=== PATIENT | male | born 1950 | race Caucasian/White ===

== ENCOUNTER → 2016-05-26 | Outpatient (CLI) | payer OTHER ==
--- NOTE | 2016-05-26 11:56 | USB ---
Reason for exam: clinical finding. Indicated problem(s): lump or thickening in the left breast. Physical Findings: Nurse Summary: palpable under upper aspect of nipple 1 x 0.5cm left breast (nurse kuldip). US Breast Limited BILAT Right breast ultrasound demonstrates no cystic or solid lesion seen. Left breast ultrasound demonstrates a 1.6 x 2.2 x 1.1cm irregular, hypoechoic lesion at the posterior nipple, gynecomastia. These results were verbally communicated with the patient and result sheet given to the patient on 05/26/16. ASSESSMENT: Probably benign, BI-RAD 3 RECOMMENDATION: Surgical consultation of the left breast. Called Dr. Cabrera with mammographic findings and has scheduled an appointment for the patient for 05/29/16 at 1:[address] Massey. PRELIMINARY REPORT CALLED AND FAXED TO DR. MASSEY ON 05/26/16 AT 300/TP.
== END | disposition home or self-care (01) ==
LOC: RADUSWWP 09:49
PROVIDERS: ATTEND Family Medicine
DX: N63 Unspecified lump in breast (principal)

== ENCOUNTER 2016-06-22 12:45 | Emergency (ER) | payer MEDICARE ==
[2016-06-22 14:02] VITALS: BP 120/84; PULSE 53; RESP 16; TEMP 98.2
[2016-06-22] MEDS ORDERED: PROPARACAINE 0.5% OPHTH DROPS 15 ML BTL BOTH EYES STA (14:10)
[2016-06-22] MEDS ORDERED: TOBRAMYCIN 0.3% OPHTH DROPS 5 ML BTL BOTH EYES STA (14:38)
--- NOTE | 2016-06-22 14:47 | ED ---
Eye Problem HPI - General Chief complaint: Eye Problems Stated complaint: FB in Eye Time Seen by Provider: 06/22/16 14:03 Source: patient Mode of arrival: ambulatory Limitations: no limitations - History of Present Illness Initial comments: Patient is a 66-year-old white male presenting to the emergency department with complaints of bilateral eye pain. Patient states he was doing some sanding and working with iron in his barn approximately 2 days ago and thinks he might have gotten something in his eyes. Patient states he was wearing eye protection. Patient complains mild irritation to his right eye associated with mild itching. Patient states that his left eye is more painful and is bothering him more. Patient states he does have a piece of scrap metal in his left eye from when he was in the [employer] a long time ago. Patient follows with an orchid worker at the [facility]. Patient does normally wear glasses. Patient states he had a tetanus shot less than 5 years ago. Patient denies contact lens use. No history of recent illness, upper respiratory infection, chills, fevers, nausea, shortness of breath, chest pain, abdominal pain. Patient states flushed his eyes with water with minimal relief. - Related Data Patient Tetanus UTD: Yes Home Medications Medication Instructions Recorded Confirmed Simvastatin [Zocor] 10 mg PO DAILY 09/14/13 06/22/16 Previous Rx's Medication Instructions Recorded Tobramycin 0.3% Ophth Soln [Tobrex 1 - 2 drop BOTH EYES Q4H #1 bottle 06/22/16 0.3% Ophth Soln] Allergies Allergy/AdvReac Type Severity Reaction Status Date / Time adhesive AdvReac Rash/Hives Verified 06/22/16 14:02 Review of Systems ROS Statement: Those systems with pertinent positive or pertinent negative responses have been documented in the HPI. ROS Other: All systems not noted in ROS Statement are negative. Past Medical History Past Medical History: Hyperlipidemia Additional Past Medical History / Comment(s): TURP History of Any Multi-Drug Resistant Organisms: None Reported Additional Past Surgical History / Comment(s): testicle, right rotary cuff, right knee Past Psychological History: No Psychological Hx Reported Smoking Status: Never smoker Past Alcohol Use History: None Reported Past Drug Use History: None Reported General Exam Limitations: no limitations General appearance: alert, in no apparent distress Head exam: Present: atraumatic, normocephalic, normal inspection Expanded Eyelids: Normal Inspection: Bilateral, Laceration: Bilateral, Stye: Bilateral Pupils: Regular, Round: Bilateral, Reactive: Bilateral Sclera/Conjunctival: Injection: Bilateral, Foreign Body: Left (Small piece of metal noted in the middle of patient's pupil ) Visual acuity (R) = 20/: 40 Visual acuity (L) = 20/: 70 With correction: No ENT exam: Present: normal exam, mucous membranes moist Neck exam: Present: normal inspection, full ROM Respiratory exam: Present: normal lung sounds bilaterally. Absent: respiratory distress, wheezes, rales, rhonchi, stridor Cardiovascular Exam: Present: regular rate, bradycardia, normal heart sounds. Absent: systolic murmur, diastolic murmur, rubs, gallop, clicks GI/Abdominal exam: Present: soft, normal bowel sounds Extremities exam: Present: normal inspection, full ROM Neurological exam: Present: alert, oriented X3, normal gait, other (No focal deficits noted) Psychiatric exam: Present: normal affect, normal mood Skin exam: Present: warm, dry, intact, normal color. Absent: rash Course Vital Signs 06/22/16 13:58 Temperature 98.2 F Pulse Rate 53 L Respiratory 16 Rate Blood Pressure 120/84 O2 Sat by Pulse 98 Oximetry Medical Decision Making - Medical Decision Making Patient presents with bilateral eye discomfort after having worked with wood and iron 2 days ago. Bilateral eyes numbed and stained. Corneal abrasion noted to right eye. Foreign body noted to left pupil without evidence of abrasion. Foreign body removed with cotton tip. Bilateral eyelids flipped with no evidence of foreign body. Patient prescribed tobramycin eyedrops. Patient instructed to follow-up with ophthalmology within 24 hours. Patient instructed to return to the emergency department with dual worsening symptoms. Patient agrees with treatment plan. Discharge instructions and return parameters reviewed. Disposition Clinical Impression: Corneal abrasion, right, Foreign body of cornea, left Disposition: HOME SELF-CARE Condition: Good Instructions: Eye Foreign Body (ED), Corneal Abrasion (ED) Additional Instructions: Apply tobramycin eyedrops 1-2 drops every 4 hours to both eyes for 5-7 days. May take Motrin or Tylenol for pain. Follow-up with orchid worker in next 24 hours. Please return to the emergency department if symptoms do not improve or get worse. Follow-up with primary care physician as directed. Prescriptions: Tobramycin 0.3% Ophth Soln [Tobrex 0.3% Ophth Soln] 1 - 2 drop BOTH EYES Q4H #1 bottle Referrals: Martin Cabrera DO [Primary Care Provider] - 1-2 days Derek Josue MD [STAFF PHYSICIAN] - 1-2 days Time of Disposition: 14:46
== END 2016-06-22 15:06 | disposition home or self-care (01) ==
LOC: EC 12:45
DX: T15.02XA Foreign body in cornea, left eye, initial encounter (principal); E78.5 Hyperlipidemia, unspecified; Z79.899 Other long term (current) drug therapy; Z91.048 Other nonmedicinal substance allergy status; X58.XXXA Exposure to other specified factors, initial encounter
CPT/HCPCS: 65220; 99283

== ENCOUNTER 2018-11-05 12:42 | Emergency (ER) | payer MEDICARE ==
[2018-11-05 12:45] VITALS: RESP 18; TEMP 97.5
--- NOTE | 2018-11-05 13:00 | ED ---
General Adult HPI - General Chief complaint: Fall Stated complaint: fall 8' from ladder 5 days ago Time Seen by Provider: 11/05/18 12:50 Source: patient, RN notes reviewed, old records reviewed Mode of arrival: ambulatory Limitations: no limitations - History of Present Illness Initial comments: 68-year-old male patient no pertinent past medical history presents ED chief complaint of pain following fall 5 days ago. Patient reports that 5 days ago he was on a ladder approximately 5 steps up when shifted, he fell onto his left shoulder and back region. Patient reports that he has a pain in his left shoulder and low back since. Patient denies any trauma to head or neck. Patient denies any loss of consciousness. Patient denies any use of blood thi nners. Patient denies any loss of bowel or bladder control, saddle anesthesia, lower extremity weakness, paresthesias, patient is a laboratory but difficulty. Patient was seen at [facility] today reportedly and had some blood in his urine, they request that he present to ER for further evaluation. Systemic: Pt denies fatigue, fever/chills, rash. Pt denies weakness, night sweats, weight loss. Neuro: Pt denies headache, visual disturbances, syncope or pre-syncope. HEENT: Pt denies ocular discharge or irritation, otalgia, rhinorrhea, pharyngitis or notable lymphadenopathy. Cardiopulmonary: Pt denies chest pain, SOB, heart palpitations, dyspnea on exertion. Abdominal/GI: Pt denies abdominal pain, n/v/d. : Pt denies dysuria, burning w/ urination, frequency/urgency. Denies new onset urinary or bowel incontinence. MSK: Pt denies loss of strength or function in extremities. Neuro: Pt denies new onset weakness, paresthesias. - Related Data Home Medications Medication Instructions Recorded Confirmed Simvastatin [Zocor] 10 mg PO DAILY 09/14/13 06/22/16 Previous Rx's Medication Instructions Recorded Tobramycin 0.3% Ophth Soln [Tobrex 1 - 2 drop BOTH EYES Q4H #1 bottle 06/22/16 0.3% Ophth Soln] Allergies Allergy/AdvReac Type Severity Reaction Status Date / Time adhesive AdvReac Rash/Hives Verified 11/05/18 12:43 Review of Systems ROS Statement: Those systems with pertinent positive or pertinent negative responses have been documented in the HPI. ROS Other: All systems not noted in ROS Statement are negative. Past Medical History Past Medical History: Hyperlipidemia Additional Past Medical History / Comment(s): TURP History of Any Multi-Drug Resistant Organisms: None Reported Additional Past Surgical History / Comment(s): testicle, right rotary cuff,right knee, right arm nerve surgery Past Psychological History: No Psychological Hx Reported Smoking Status: Never smoker Past Alcohol Use History: None Reported Past Drug Use History: None Reported General Exam - General Exam Comments Initial Comments: Constitutional: NAD, AOX3, Pt has pleasant affect. HEENT: NC/AT, trachea midline, neck supple, no lymphadenopathy. Posterior pharynx non erythematous, without exudates. External ears appear normal, without discharge. Mucous membranes moist. Eyes PERRLA, EOM intact. There is no scleral icterus. No pallor noted. Cardiopulmonary: RRR, no murmurs, rubs or gallops, no JVD noted. Lungs CTAB in anterior and posterior mcdowell. No peripheral edema. Abdominal exam: Abdomen soft and non-distended. Abdomen non-tender to palpation in all 4 quadrants. Bowel sounds active in LLQ. No hepatosplenomegaly. No ecchymosis Neuro: CN II-XII grossly intact. No nuchal rigidity. No raccon eyes, no martel sign, no hemotympanum. No cervical spinal tenderness. MSK: Mild right paralumbar tenderness. No radiculopathy. No other tenderness to palpation. No posterior calf tenderness bilaterally, homans sign negative bilaterally. Posterior tibialis and radial pulse +2 bilaterally. Sensation intact in upper and lower extremities. Full active ROM in upper and lower extremities, 5/5 stregnth. Limitations: no limitations Course Vital Signs 11/05/18 12:43 Temperature 97.5 F L Pulse Rate 61 Respiratory 18 Rate Blood Pressure 131/84 O2 Sat by Pulse 96 Oximetry Medical Decision Making - Medical Decision Making 68-year-old male patient no pertinent past medical history presents ED chief complaint of pain following fall 5 days ago. Patient reports that 5 days ago he was on a ladder approximately 5 steps up when shifted, he fell onto his left shoulder and back region. Patient reports that he has a pain in his left shoulder and low back since. Patient denies any trauma to head or neck. Patient denies any loss of consciousness. Patient denies any use of blood thinners. Patient denies any loss of bowel or bladder control, saddle anesthesia, lower extremity weakness, paresthesias, patient is a laboratory but difficulty. Patient was seen at [facility] today reportedly and had some blood in his urine, they request that he present to ER for further evaluation. Patient vital signs stable, afebrile. Physical exam did displayed some right paralumbar pain, no radiculopathy. With without difficulty. Plain films displayed no acute process. CT abdomen pelvis displayed no acute traumatic process. Patient discharged with outpatient primary care follow-up, otalgia condition worsens. Case discussed with Dr. Linder. - Lab Data Result diagrams: 11/05/18 14:51 11/05/18 14:51 Lab Results 11/05/18 11/05/18 11/05/18 Range/Units 14:51 14:51 14:51 WBC 6.5 (3.8-10.6) k/uL RBC 4.59 (4.30-5.90) m/uL Hgb 13.7 (13.0-17.5) gm/dL Hct 41.1 (39.0-53.0) % MCV 89.6 (80.0-100.0) fL MCH 29.9 (25.0-35.0) pg MCHC 33.3 (31.0-37.0) g/dL RDW 13.1 (11.5-15.5) % Plt Count 202 (150-450) k/uL Neutrophils % 51 % Lymphocytes % 35 % Monocytes % 5 % Eosinophils % 4 % Basophils % 2 % Neutrophils # 3.4 (1.3-7.7) k/uL Lymphocytes # 2.3 (1.0-4.8) k/uL Monocytes # 0.4 (0-1.0) k/uL Eosinophils # 0.2 (0-0.7) k/uL Basophils # 0.2 (0-0.2) k/uL Sodium 139 (137-145) mmol/L Potassium 4.8 (3.5-5.1) mmol/L Chloride 101 (98-107) mmol/L Carbon Dioxide 32 H (22-30) mmol/L Anion Gap 6 mmol/L BUN 20 (9-20) mg/dL Creatinine 0.78 (0.66-1.25) mg/dL Est GFR (CKD-EPI)AfAm >90 (>60 ml/min/1.73 sqM) Est GFR (CKD-EPI)NonAf >90 (>60 ml/min/1.73 sqM) Glucose 97 (74-99) mg/dL Calcium 9.5 (8.4-10.2) mg/dL Total Bilirubin 0.5 (0.2-1.3) mg/dL AST 25 (17-59) U/L ALT 23 (21-72) U/L Alkaline Phosphatase 64 (38-126) U/L Total Protein 7.0 (6.3-8.2) g/dL Albumin 4.1 (3.5-5.0) g/dL Urine Color Yellow Urine Appearance Clear (Clear) Urine pH 7.5 (5.0-8.0) Ur Specific [place] 1.012 (1.001-1.035) Urine Protein Negative (Negative) Urine Glucose (UA) Negative (Negative) Urine Ketones Negative (Negative) Urine Blood Negative (Negative) Urine Nitrite Negative (Negative) Urine Bilirubin Negative (Negative) Urine Urobilinogen <2.0 (<2.0) mg/dL Ur Leukocyte Esterase Negative (Negative) Disposition Clinical Impression: Fall Disposition: HOME SELF-CARE Condition: Stable Instructions (If sedation given, give patient instructions): Fall Prevention for Older Adults (ED) Additional Instructions: Patient to adhere to previously discussed treatment plan and will take medication(s) as directed. Patient to follow up with PCP in 1-2 days. Patient to return to ED if symptoms do not improve. Follow up with primary care provider Tomorrow, return to ER condition worsens. Is patient prescribed a controlled substance at d/c from ED?: No Referrals: Martin Cabrera DO [Primary Care Provider] - 1-2 days
--- NOTE | 2018-11-05 13:38 | XR ---
EXAMINATION TYPE: XR chest 2V DATE OF EXAM: Chest x-ray September 14, 2013 COMPARISON: NONE HISTORY: Fall injury 5 days ago with pain. TECHNIQUE: Frontal and lateral views of the chest are obtained. FINDINGS: There is chronic parenchymal changes bilaterally without suspicious focal air space opacit y, pleural effusion, or pneumothorax seen. The cardiac silhouette size is within normal limits with atherosclerotic and ectatic aorta. The osseous structures are demineralized. IMPRESSION: Chronic changes without acute pulmonary process.
--- NOTE | 2018-11-05 13:38 | XR ---
EXAMINATION TYPE: XR shoulder complete LT DATE OF EXAM: 11/05/2018 CLINICAL HISTORY: Fall injury 5 days ago with pain. TECHNIQUE: Three views of the left shoulder are obtained. COMPARISON: None. FINDINGS: There is no acute fracture/dislocation evident in the left shoulder. Demineralization is present. Moderate narrowing right ventricular joint. High riding humeral head suggesting chronic rota tor cuff tear. Moderate narrowing superior glenohumeral joint. The visualized ribs are intact and un remarkable. IMPRESSION: There is no acute fracture or dislocation in the left shoulder.
--- NOTE | 2018-11-05 13:39 | XR ---
EXAMINATION TYPE: XR pelvis AP view DATE OF EXAM: 11/05/2018 CLINICAL HISTORY: Falling injury 5 days ago with pain. TECHNIQUE: A single AP view of the pelvis is obtained. COMPARISON: None. FINDINGS: There is no acute fracture/dislocation evident in the pelvis. Mild to moderate axial narro wing of both hip joints. Sacroiliac joints are maintained. The overlying soft tissue appears unremar kable. IMPRESSION: There is no acute fracture or dislocation in the pelvis.
--- NOTE | 2018-11-05 13:41 | XR ---
EXAMINATION TYPE: XR lumbar spine 2 or 3V DATE OF EXAM: 11/05/2018 CLINICAL HISTORY: Fall injury 5 days ago with pain. TECHNIQUE: Frontal and lateral images of the lumbar spine are obtained. COMPARISON: Lumbar spine x-ray September 15, 2013 FINDINGS: There are 5 lumbar type vertebral bodies identified. There is mild height loss T12 level r edemonstrated. New mild height loss at L1 level with anterior wedging. No suspicious lucency. Slight grade 1 anterolisthesis L3 on L4. Mild to moderate disc space narrowing L4-L5 level. Mild multilevel disc space narrowing. Mild multilevel anterior spurring. Multilevel facet degenerative changes mid to lower lumbar spine. Overlying soft tissue unremarkable. IMPRESSION: No new acute fracture is clearly identified.
[2018-11-05] MEDS ORDERED: SODIUM CHLORIDE 0.9% 1,000 ML IV STA (14:37)
[2018-11-05 15:12] LABS: Appearance,Urine Clear (Clear); Bilirubin,Urine Negative (Negative); Blood,Urine Negative (Negative); Color,Urine Yellow; Glucose,Urine (UA) Negative (Negative); Ketones,Urine Negative (Negative); Leukocyte Esterase,Urine Negative (Negative); Nitrite,Urine Negative (Negative); PH, Urine 7.5 (5.0-8.0); Protein,Urine Negative (Negative); Specific Gravity,Urine 1.012 (1.001-1.035); Urobilinogen,Urine <2.0 mg/dL (<2.0)
[2018-11-05 15:13] LABS: Basophils # (A) 0.2 k/uL (0-0.2); Basophils % (A) 2 %; Eosinophils # (A) 0.2 k/uL (0-0.7); Eosinophils % (A) 4 %; HCT 41.1 % (39.0-53.0); HGB 13.7 gm/dL (13.0-17.5); Lymphocytes # (A) 2.3 k/uL (1.0-4.8); Lymphocytes % (A) 35 %; MCH 29.9 pg (25.0-35.0); MCHC 33.3 g/dL (31.0-37.0); MCV 89.6 fL (80.0-100.0); Mean Platelet Volume 7.6; Monocytes # (A) 0.4 k/uL (0-1.0); Monocytes % (A) 5 %; Neutrophils # (A) 3.4 k/uL (1.3-7.7); Neutrophils % (A) 51 %; Platelet Count 202 k/uL (150-450); RBC 4.59 m/uL (4.30-5.90); RDW 13.1 % (11.5-15.5); WBC 6.5 k/uL (3.8-10.6)
[2018-11-05 15:26] LABS: ALT 23 U/L (21-72); AST 25 U/L (17-59); African American GFR (CKD) >90 (>60 ml/min/1.73 sqM); Albumin 4.1 g/dL (3.5-5.0); Alkaline Phosphatase 64 U/L (38-126); Anion Gap 6 mmol/L; Blood Urea Nitrogen 20 mg/dL (9-20); Calcium 9.5 mg/dL (8.4-10.2); Carbon Dioxide 32 mmol/L (22-30); Chloride 101 mmol/L (98-107); Glucose 97 mg/dL (74-99); Non-African American GFR(CKD) >90 (>60 ml/min/1.73 sqM); Potassium 4.8 mmol/L (3.5-5.1); Sodium 139 mmol/L (137-145); Total Bilirubin 0.5 mg/dL (0.2-1.3)
--- NOTE | 2018-11-05 15:53 | CT ---
EXAMINATION TYPE: CT ChestAbdPelvis w con DATE OF EXAM: 11/05/2018 COMPARISON: None HISTORY: 8 foot fall from ladder 5 days ago. Diffuse pain most prominent in the low back. CT DLP: 1321.5 mGycm. Automated Exposure Control for Dose Reduction was Utilized. CONTRAST: CT scan of the thorax, abdomen and pelvis is performed with IV Contrast, patient injected with 100 mL of Isovue 300. Trauma protocol. FINDINGS: LUNGS: Bibasilar linear scarring and/or atelectasis is present. Dependent atelectasis bilateral lower lobes. Mild to moderate biapical pleural/parenchymal scarring. No suspicious nodules or masses. No p leural effusion or pneumothorax. MEDIASTINUM: There are no greater than 1 cm noncalcified hilar or mediastinal lymph nodes. Slightly p rominent but partially calcified right hilar and subcarinal lymph nodes. Mild coronary artery calcifi cation which is noted marker for underlying coronary artery disease. No cardiomegaly or pericardial effusion is seen. OTHER: Small degree of left-sided subareolar gynecomastia. LIVER/GB: Rim hyperdense central hypodense 4.2 cm lesion posterior right hepatic lobe that shows prog ressive centripetal filling on delayed images consistent with benign hemangioma. PANCREAS: No significant abnormality is seen. SPLEEN: No significant abnormality is seen. ADRENALS: No significant abnormality is seen. KIDNEYS: No significant abnormality is seen. BOWEL: Incidental normal-appearing appendix from cecum. GENITAL ORGANS: Prostate gland is mildly enlarged bulging of bladder base consistent with underlying BPH. LYMPH NODES: No greater than 1cm abdominal or pelvic lymph nodes are appreciated. OSSEOUS STRUCTURES: Prominent Schmorl node superior T12 endplate sagittal image 75. Jpxg-[id number] disc space narrowing with vacuum disc phenomenon L4-L5 level. No acute osseous fracture. Efqo-ue-xcac rate narrowing of both hip joints. Facet arthropathy lower lumbar levels. OTHER: No significant additional abnormality is seen. IMPRESSION: No acute posttraumatic finding in particular no acute osseous fracture, abnormal fluid co llection, or evidence of solid organ injury in the thorax, abdomen, or pelvis.
[2018-11-05 16:40] VITALS: BP 142/85; PULSE 55
== END 2018-11-05 16:38 | disposition home or self-care (01) ==
LOC: EC 12:42
DX: Z04.3 Encounter for examination and observation following other accident (principal); M25.512 Pain in left shoulder; R31.9 Hematuria, unspecified; E78.5 Hyperlipidemia, unspecified; Z79.899 Other long term (current) drug therapy; Z91.048 Other nonmedicinal substance allergy status; W11.XXXA Fall on and from ladder, initial encounter
CPT/HCPCS: 36415; 80053; 85025; 81003; 72100; 72170; 73030; 71046; 71260; 74177; 99284; 96360; 96361; Q9967

== ENCOUNTER → 2020-06-07 | Outpatient (CLI) | payer OTHER, MEDICARE ==
--- NOTE | 2020-06-07 10:33 | USB ---
Reason for exam: clinical finding. Physical Findings: Nurse Summary: Patient complains of left breast intermittent lump with pain (nurse mj). US Breast Limited BILAT Right limited breast ultrasound including focal area of concern, retroareolar and axilla demonstrates no cystic or solid lesion seen. Left limited breast ultrasound including focal area of concern, retroareolar and axilla demonstrates a 1.8 x 1.2 x 1.1cm irregular, hypoechoic, vascular lesion at the posterior nipple, stable from 2017 and a 1.4 x 1.2 x 0.7cm oval lymph node at the axilla. These results were verbally communicated with the patient and result sheet given to the patient on 06/07/20. ASSESSMENT: Probably benign, BI-RAD 3 RECOMMENDATION: Ultrasound of the left breast in 6 months. Manage patient on a clinical basis.
--- NOTE | 2020-06-07 13:51 | US ---
EXAMINATION TYPE: US extremity nonvasc mass RT DATE OF EXAM: 06/07/2020 COMPARISON: NONE CLINICAL HISTORY: R93.6 Lesion R segovia. Patient stated has noticed increased in size of palpable right anterior seg[place]. Patient had previous injury here. US findings of right anterior lower leg at palpable: oval, irregular, complex, hypoechoic area is not ed = 1.8 x 1.8 x 0.3cm. Finding is nonspecific can be related to hematoma. Follow-up can be performed as clinically indicated. IMPRESSION: 1. Small ill-defined hypoechoic area at the level of the palpable region anterior right lower extremi ty. Consider small hematoma within the differential. Follow-up can be performed as clinically indicat ed.
== END | disposition home or self-care (01) ==
LOC: RADUSWWP 08:37
DX: N63.20 Unspecified lump in the left breast, unspecified quadrant (principal)

== ENCOUNTER → 2020-12-10 | Outpatient (CLI) | payer OTHER ==
--- NOTE | 2020-12-10 08:40 | USB ---
Bilateral breast ultrasound INDICATION: Bilateral breast palpable abnormalities. Comparisons: 06/07/2020, 05/26/2016 Grayscale and color Doppler imaging of the bilateral breasts in the retroareolar regions and axilla w ere obtained. FINDINGS: Hypoechoic ill-defined area in the right retroareolar breast appears relatively similar to the prior examination. Irregular hypoechoic area in the retroareolar left breast measures up to 0.7 cm and is l ess prominent than on the prior examination. IMPRESSION: Bilateral diagnostic mammogram is recommended in this male patient with bilateral palpable abnormalit ies. BI-RADS 0, incomplete.
--- NOTE | 2020-12-10 10:06 | MM ---
Reason for exam: follow-up at short interval from prior study. History: Family history of breast cancer in sister. MG 3D Diag Mammo W/Cad KRISTIE Bilateral CC and MLO view(s) were taken. Prior study comparison: June 07, 2020, bilateral US breast limited BILAT. May 26, 2016, bilateral US breast limited BILAT. Bilateral gynecomastia greater in the left breast and clinical follow up. These results were verbally communicated with the patient and result sheet given to the patient on 12/10/20. ASSESSMENT: Benign, BI-RAD 2 RECOMMENDATION: Clinical management of both breasts. Manage patient on a clinical basis.
== END | disposition home or self-care (01) ==
LOC: RADUSWWP 08:09
DX: N63.0 Unspecified lump in unspecified breast (principal)
CPT/HCPCS: 77062; 77066

== ENCOUNTER 2021-07-16 08:00 | Day surgery (SDC) | payer OTHER ==
[~2021-07-16 08:00] MED LIST: LACTATED RINGERS 1,000 ML IV SCH; LIDOCAINE 1% (10MG/ML) FOR IV START INTRADERMA PRN
[2021-07-16 08:31] VITALS: RESP 16; TEMP 97.5
[2021-07-16] MEDS ORDERED: PROPOFOL 10 MG/ML 20 ML VIAL IV ONE (09:27)
[2021-07-16] MEDS ORDERED: LIDOCAINE 2% INJ 20 MG/ML (2 ML VIAL) ONE (09:27)
--- NOTE | 2021-07-16 09:53 | P.PCN ---
Date of Procedure: 07/16/21 Procedure(s) Performed: BRIEF HISTORY: Patient is a 71-year-old pleasant white male scheduled for an elective colonoscopy as a part of evaluation of prior history of colon polyps. Patient states that his last colonoscopy was in the [facility] in [place] and was noted to have 13 polyps. PROCEDURE PERFORMED: Colonoscopy with biopsy. PREOPERATIVE DIAGNOSIS: History of colon polyps. IV sedation per Anesthesia. PROCEDURE: After informed consent was obtained, the patient, was brought into the endoscopy unit. IV sedation was administered by Anesthesia under continuous monitoring. Digital rectal examination was normal. Initially the Olympus CF-160 flexible video colonoscope was then inserted in the rectum, gradually advanced into the cecum without any difficulty. Careful examination was performed as the scope was gradually being withdrawn. Ileocecal valve and the appendiceal orifice were visualized and appeared normal. Prep was excellent. Mucosa of the cecum, ascending colon, appeared normal. The transverse colon there was a 3 mm polyp that was removed by cold biopsy. In the sigmoid colon there was a 4 mm polyp removed by cold biopsy. Rest of the transverse colon, descending colon, sigmoid colon, and rectum appeared normal. In the rectum there was a 5 mm polyp removed by cold biopsy. Retroflexion was performed in the rectum and no lesions were seen. The patient tolerated the procedure well. IMPRESSION: 3 mm transverse colon polyp status post cold biopsy 4 mm sigmoid: Polyp status post cold biopsy 5 mm rectal polyp status post cold biopsy RECOMMENDATIONS: Findings of this examination were discussed with the patient as well as her family. He was advised to follow with the biopsy results. If the biopsy results adenoma he can have a repeat colonoscopy in 5 years.
[2021-07-16 10:12] VITALS: BP 120/69; PULSE 46
== END 2021-07-16 10:33 | disposition home or self-care (01) ==
LOC: ORWHC2ENDO 08:00
PROVIDERS: ATTEND Internal Medicine Gastroenterology
DX: Z12.11 Encounter for screening for malignant neoplasm of colon (principal); D12.3 Benign neoplasm of transverse colon; D12.5 Benign neoplasm of sigmoid colon; K62.1 Rectal polyp; Z86.010 Personal history of colon polyps; I10 Essential (primary) hypertension; E78.5 Hyperlipidemia, unspecified; G47.33 Obstructive sleep apnea (adult) (pediatric); J45.909 Unspecified asthma, uncomplicated; K21.9 Gastro-esophageal reflux disease without esophagitis; Z79.899 Other long term (current) drug therapy
CPT/HCPCS: 88305; 45380; J2704; J2001

== ENCOUNTER → 2022-09-25 | Outpatient (CLI) | payer OTHER ==
--- NOTE | 2022-09-25 08:39 | CT ---
EXAMINATION TYPE: CT lumbar spine wo con CT DLP: 1147 mGycm, Automated exposure control for dose reduction was used. DATE OF EXAM: 09/25/2022 8:14 AM COMPARISON: 11/05/2018. CLINICAL INDICATION:Male, 72 years old with history of M54.5 back pain, chronic back pain TECHNIQUE: Multiple axial images were obtained from the midportion of T11 through the sacroiliac xochitl nts. Soft tissue and bone windows in coronal and sagittal planes were obtained and reviewed. Contrast used:none. Oral contrast used: none. FINDINGS: Alignment: There are 5 lumbar type vertebral bodies within normal alignment. Bone: No evidence of fracture is identified. Multilevel degeneration changes are moderate to severe. There is wedging of the T12-L1 vertebral bodies. Scattered facet joint arthropathy, disc space narro wing with vacuum disc phenomenon and Schmorl's nodes are present. Discs: T12-L1: Facet joint arthropathy and disc bulging result with mild to moderate spinal canal stenosis a nd mild bilateral neural foraminal stenosis. L1-L2: Facet joint arthropathy and disc bulging result with mild spinal canal stenosis and mild to mo derate bilateral neural foraminal stenosis. L2-L3: Facet joint arthropathy and disc bulging result with mild spinal canal stenosis and mild bilat eral neural foraminal stenosis. L3-L4: Facet joint arthropathy and disc bulging result with severe spinal canal stenosis and mild mod erate to severe bilateral neural foraminal stenosis. L4-L5: Facet joint arthropathy and disc bulging result with mild spinal canal stenosis and moderate bilateral neural foraminal stenosis. L5-S1: Facet joint arthropathy and disc bulging result with mild spinal canal stenosis and mild bilat eral neural foraminal stenosis. Other: None IMPRESSION: Moderate to severe multilevel disc degeneration changes of the spine findings worse at L3-L4 with mod erate to severe neural foraminal stenosis bilaterally in severe spinal canal stenosis.
== END | disposition home or self-care (01) ==
LOC: RADCTMAIN 07:49
DX: M51.36 Other intervertebral disc degeneration, lumbar region (principal); M99.73 Connective tissue and disc stenosis of intervertebral foramina of lumbar region
CPT/HCPCS: 72131

== ENCOUNTER 2022-09-28 16:21 | Inpatient (IN) | payer OTHER, MEDICARE ==
[2022-09-28] MEDS ORDERED: SODIUM CHLORIDE 0.9% 1,000 ML IV ONE (16:53)
[2022-09-28] MEDS ORDERED: KETOROLAC 15 MG/ML 1 ML VIAL IVP STA (16:54)
--- NOTE | 2022-09-28 16:58 | ED ---
General Adult HPI - General Chief complaint: Fall Stated complaint: Fall Time Seen by Provider: 09/28/22 16:37 Source: patient, RN notes reviewed Mode of arrival: wheelchair Limitations: no limitations - History of Present Illness Initial comments: 72-year-old male with past medical history significant for hyperlipidemia presents the emergency department with a chief complaint of fall. Patient reports that he fell from a ladder at approximately 10 feet yesterday. He fell on his right hip. He denies hitting his head, loss of consciousness, anticoagulant use. He denies any headache, dizziness, vision changes, vision loss, neck pain, back pain. He does report feeling left sided flank pain that radiates into the left groin. He also reports that his urine this morning. I'll (normal and believes he saw a small amount of blood. Denies any fevers, chills, nausea, vomiting. Denies history of kidney stones. - Related Data Home Medications Medication Instructions Recorded Confirmed Carboxymethylcellulose Sodium 1 drop BOTH EYES BID PRN 07/12/21 09/28/22 [Refresh Tears] Fluticasone Nasal [place] [Flonase 1 spray EA NOSTRIL DAILY 07/12/21 09/28/22 Nasal [place]] Fluticasone Propion/Salmeterol 1 puff INHALATION RT-BID 07/12/21 09/28/22 [Wixela 100-50 Inhub] Furosemide [Lasix] 20 mg PO DAILY 07/12/21 09/28/22 Latanoprost/Pf [Latanoprost 0.005% 1 drop BOTH EYES HS 07/12/21 09/28/22 Eye Drop] Naproxen Sodium [Aleve] 220 mg PO BID PRN 07/12/21 09/28/22 Omeprazole 20 mg PO DAILY 07/12/21 09/28/22 Potassium Chloride 10 meq PO DAILY 07/12/21 09/28/22 Vit C/E/Zn/Coppr/Lutein/Zeaxan 1 tab PO BID 07/12/21 09/28/22 [Preservision Areds 2 Chew Tab] Brimonidine Tartrate [Alphagan P 1 drop BOTH EYES BID 09/28/22 09/28/22 0.2% Ophth Soln] Calcium Carbonate 1.25 Gm Tab 1.25 gm PO DAILY 09/28/22 09/28/22 Cholecalciferol [Vitamin D3 (10 10 mcg PO DAILY 09/28/22 09/28/22 Mcg = 400 Iu)] Ketotifen 0.025% Ophth Soln 1 drop BOTH EYES BID PRN 09/28/22 09/28/22 [Zaditor] Simvastatin [Zocor] 40 mg PO HS 09/28/22 09/28/22 polyethylene glycoL 3350 [Miralax] 17 gm PO DAILY PRN 09/28/22 09/28/22 Allergies Allergy/AdvReac Type Severity Reaction Status Date / Time adhesive AdvReac Rash/Hives Verified 09/28/22 21:00 Review of Systems ROS Statement: Those systems with pertinent positive or pertinent negative responses have been documented in the HPI. ROS Other: All systems not noted in ROS Statement are negative. Past Medical History Past Medical History: Asthma, GERD/Reflux, Hyperlipidemia, Hypertension, Osteoarthritis (OA) Additional Past Medical History / Comment(s): constipation,very small stool w/ undigested foods History of Any Multi-Drug Resistant Organisms: None Reported Past Surgical History: Orthopedic Surgery Additional Past Surgical History / Comment(s): testicle, right rot cuff,right knee, right arm nerve surgery,TURP,karen shoulder replacement Past Anesthesia/Blood Transfusion Reactions: No Reported Reaction Past Psychological History: No Psychological Hx Reported Smoking Status: Never smoker - Past Family History Mother Family Medical History: Cancer Additional Family Medical History / Comment(s): stomach Father Family Medical History: COPD General Exam - General Exam Comments Initial Comments: General: Alert, in no acute distress Head: atraumatic normocephalic. Eyes PERRL, EOMI intact, mucous membranes moist Respiratory: Lungs clear to auscultation bilaterally Cardiovascular: Heart rate regular rhythm Abdominal: Soft without guarding or rebound Extremities: Normal inspection with full range of motion and normal capillary refill Neuroogic: alert and oriented 3, CN II-XII intact, able to ambulate with steady gait Skin: warm dry and intact with normal color Limitations: no limitations Course Vital Signs 09/28/22 09/28/22 16:24 21:16 Temperature 98.4 F Pulse Rate 65 52 L Respiratory 16 18 Rate Blood Pressure 135/76 129/73 O2 Sat by Pulse 97 94 L Oximetry Medical Decision Making - Medical Decision Making Was pt. sent in by a medical professional or institution (Dr., PA, MONITORING COORDINATOR, urgent care, hospital, or usp...) When possible be specific @ -[No] Did you speak to anyone other than the patient for history (EMS, parent, family, police, friend...)? What history was obtained from this source @ -[No] Did you review nursing and triage notes (agree or disagree)? Why? @ -[I reviewed and agree with nursing and triage notes] Were old charts reviewed (outside hosp., previous admission, EMS record, old EK G, old radiological studies, urgent care reports/EKG's, usp records)? Report findings @ -[No old charts were reviewed] Differential Diagnosis (chest pain, altered mental status, abdominal pain women, abdominal pain men, vaginal bleeding, weakness, fever, dyspnea, syncope, headache, dizziness, GI bleed, back pain, seizure, CVA, palpatations, mental he alth, musculoskeletal)? @ -[not applicable] EKG interpreted by me (3pts min.). @ -[As above] X-rays interpreted by me (1pt min.). @ -[None done] CT interpreted by me (1pt min.).i @ -CT abdomen and pelvis is negative for any evidence of intra-abdominal process or nephrolithiasis. There is no fracture or dislocation the spine or hips U/S interpreted by me (1pt. min.). @ -[None done] What testing was considered but not performed or refused? (CT, X-rays, U/S, labs)? Why? @ -[None] What meds were considered but not given or refused? Why? @ -[None] Did you discuss the management of the patient with other professionals (professionals i.e. AZUCENA Haji, MONITORING COORDINATOR, lab, RT, psych nurse, social services designee, dyed raw stock blower feeder, teacher, second officer, flow manager)? Give summary @ -[No] Was smoking cessation discussed for >3mins.? @ -[No] Was critical care preformed (if so, how long)? @ -[No] Were there social determinants of health that impacted care today? How? (Homelessness, low income, unemployed, alcoholism, drug addiction, transportat ion, low edu. Level, literacy, decrease access to med. care, fpc, rehab)? @ -[No] Was there de-escalation of care discussed even if they declined (Discuss DNR or withdrawal of care, Hospice)? DNR status @ -[No] What co-morbidities impacted this encounter? (DM, HTN, Smoking, COPD, CAD, Cancer, CVA, ARF, Chemo, Hep., AIDS, mental health diagnosis, sleep apnea, morbid obesity)? @ -[None] Was patient admitted / discharged? Hospital course, mention meds given and route, prescriptions, significant lab abnormalities, going to OR and other pertinent info. @ -Admission. This is a pleasant 72-year-old male witha past medical history who presents to the emergency department the chief complaint of fall. Patient had a thorough history and physical exam performed on the emergency department. Physical exam is essentially unremarkable. Heart rate regular rate and rhythm, lungs good auscultation bilaterally abdomen soft nontender. He shouldn't unable to ambulate with steady gait secondary to pain. He was given IV fluids and Toradol with symptomatic relief. He is agreeable with the plan for admission. Patient had lab work and imaging which were essentially unremarkable. Case discussed with [facility] who agrees and accepts the patient for admission with consult to PT OT. Case discussed with Dr. Ruelas, [facility] who agrees plan of care Undiagnosed new problem with uncertain prognosis? @ -[No] Drug Therapy requiring intensive monitoring for toxicity (Heparin, Nitro, Insulin, Cardizem)? @ -[No] Were any procedures done? @ -[No] Diagnosis/symptom? @ -Fall - Left flank pain Acute, or Chronic, or Acute on Chronic? @ -Acute Uncomplicated (without systemic symptoms) or Complicated (systemic symptoms)? @ Uncomplicated] Side effects of treatment? @ -[No] Exacerbation, Progression, or Severe Exacerbation? @ -[No] Poses a threat to life or bodily function? How? (Chest pain, [place], [place], pneumonia, PE, COPD, DKA, ARF, appy, cholecystitis, CVA, Diverticulitis, Homicidal, Suicidal, threat to staff... and all critical care pts) @ -Low likelihood - Lab Data Result diagrams: 09/28/22 17:18 09/28/22 17:18 Lab Results 09/28/22 09/28/22 09/28/22 Range/Units 17:18 17:18 18:06 WBC 6.7 (3.8-10.6) k/uL RBC 4.33 (4.30-5.90) m/uL Hgb 13.7 (13.0-17.5) gm/dL Hct 39.8 (39.0-53.0) % MCV 91.8 (80.0-100.0) fL MCH 31.7 (25.0-35.0) pg MCHC 34.5 (31.0-37.0) g/dL RDW 12.9 (11.5-15.5) % Plt Count 120 L (150-450) k/uL MPV 9.1 Neutrophils % 68 % Lymphocytes % 18 % Monocytes % 6 % Eosinophils % 6 % Basophils % 1 % Neutrophils # 4.6 (1.3-7.7) k/uL Lymphocytes # 1.2 (1.0-4.8) k/uL Monocytes # 0.4 (0-1.0) k/uL Eosinophils # 0.4 (0-0.7) k/uL Basophils # 0.0 (0-0.2) k/uL Sodium 136 L (137-145) mmol/L Potassium 4.2 (3.5-5.1) mmol/L Chloride 102 (98-107) mmol/L Carbon Dioxide 28 (22-30) mmol/L Anion Gap 6 mmol/L BUN 21 H (9-20) mg/dL Creatinine 0.55 L (0.66-1.25) mg/dL Est GFR (CKD-EPI)AfAm >90 (>60 ml/min/1.73 sqM) Est GFR (CKD-EPI)NonAf >90 (>60 ml/min/1.73 sqM) Glucose 108 H (74-99) mg/dL Calcium 8.7 (8.4-10.2) mg/dL Total Bilirubin 1.1 (0.2-1.3) mg/dL AST 30 (17-59) U/L ALT 23 (4-49) U/L Alkaline Phosphatase 59 (38-126) U/L Total Protein 6.5 (6.3-8.2) g/dL Albumin 3.7 (3.5-5.0) g/dL Urine Color Light Yellow Urine Appearance Clear (Clear) Urine pH 6.0 (5.0-8.0) Ur Specific [place] 1.006 (1.001-1.035) Urine Protein Negative (Negative) Urine Glucose (UA) Negative (Negative) Urine Ketones Negative (Negative) Urine Blood Negative (Negative) Urine Nitrite Negative (Negative) Urine Bilirubin Negative (Negative) Urine Urobilinogen <2.0 (<2.0) mg/dL Ur Leukocyte Esterase Negative (Negative) Disposition Clinical Impression: Fall, Flank pain Disposition: ADMITTED IP TO THIS [facility] Time of Disposition: 19:05
[2022-09-28 17:44] LABS: Basophils % (A) 1 %; Eosinophils # (A) 0.4 k/uL (0-0.7); Eosinophils % (A) 6 %; HCT 39.8 % (39.0-53.0); HGB 13.7 gm/dL (13.0-17.5); Lymphocytes # (A) 1.2 k/uL (1.0-4.8); Lymphocytes % (A) 18 %; MCH 31.7 pg (25.0-35.0); MCHC 34.5 g/dL (31.0-37.0); MCV 91.8 fL (80.0-100.0); Mean Platelet Volume 9.1; Monocytes # (A) 0.4 k/uL (0-1.0); Monocytes % (A) 6 %; Neutrophils # (A) 4.6 k/uL (1.3-7.7); Neutrophils % (A) 68 %; Platelet Count 120 k/uL (150-450); RBC 4.33 m/uL (4.30-5.90); RDW 12.9 % (11.5-15.5); WBC 6.7 k/uL (3.8-10.6)
[2022-09-28 17:49] LABS: ALT 23 U/L (4-49); African American GFR (CKD) >90 (>60 ml/min/1.73 sqM); Albumin 3.7 g/dL (3.5-5.0); Anion Gap 6 mmol/L; Blood Urea Nitrogen 21 mg/dL (9-20); Calcium 8.7 mg/dL (8.4-10.2); Carbon Dioxide 28 mmol/L (22-30); Chloride 102 mmol/L (98-107); Glucose 108 mg/dL (74-99); Non-African American GFR(CKD) >90 (>60 ml/min/1.73 sqM); Sodium 136 mmol/L (137-145); Total Bilirubin 1.1 mg/dL (0.2-1.3); Total Protein 6.5 g/dL (6.3-8.2)
--- NOTE | 2022-09-28 17:51 | CT ---
EXAMINATION TYPE: CT abdomen pelvis wo con DATE OF EXAM: 09/28/2022 COMPARISON: 11/05/2018 INDICATION: pain/r/out kidney stone DLP: 980.9 mGycm, Automated exposure control for dose reduction was used. CONTRAST: 0 mL of Isovue 300. Study performed without Oral Contrast TECHNIQUE: Axial images were obtained from above the diaphragm to the pubic rami in the axial plane a t 5 mm thick sections. Reconstructed images are reviewed on the computer in the coronal plane. FINDINGS: Limited CT sections are obtained the lung bases. Mild subsegmental atelectasis is likely within the posterior lung bases.. CT ABDOMEN: Liver: Patient suspected hemangioma is very poorly visualized on this examination and posterior right lobe liver best estimate of size is 3.8 cm. Spleen: Normal Pancreas: Normal Adrenal glands: The adrenal glands are normal. Gallbladder: Not identified. Correlate with the history Kidneys: No masses are evident. No hydronephrosis is present. No cysts are present. No renal stone s are evident. Ureteral stones are evident. Extrarenal pelves are present bilaterally. Aorta: Normal Inferior vena cava: Normal. CT PELVIS: Loops of bowel within the abdomen and pelvis are normal. This study is without oral contrast limi ting evaluation. Appendix: Normal as visualized. No adjacent inflammatory changes. Urinary bladder: Normal. Genitourinary structures: Prostate is prominent Osseous structures: No suspicious lytic or sclerotic lesions. Septi degenerative changes are present. Degenerative disc changes are within the thoracolumbar spine IMPRESSIONS: 1. No suspicious renal or ureteral stones. 2. Normal appendix. 3. Degenerative disc changes through the thoracolumbar spine
[2022-09-28 18:09] LABS: AST 30 U/L (17-59); Alkaline Phosphatase 59 U/L (38-126); Potassium 4.2 mmol/L (3.5-5.1)
[2022-09-28 18:10] LABS: Appearance,Urine Clear (Clear); Bilirubin,Urine Negative (Negative); Blood,Urine Negative (Negative); Color,Urine Light Yellow; Glucose,Urine (UA) Negative (Negative); Ketones,Urine Negative (Negative); Leukocyte Esterase,Urine Negative (Negative); Nitrite,Urine Negative (Negative); Protein,Urine Negative (Negative); Specific Gravity,Urine 1.006 (1.001-1.035); Urobilinogen,Urine <2.0 mg/dL (<2.0)
[2022-09-28] MEDS ORDERED: NALOXONE 0.4 MG/ML 1 ML VIAL IV PRN (19:36)
[2022-09-28] MEDS ORDERED: MORPHINE SULFATE 4 MG/ML SYRINGE IV PRN (19:36)
[2022-09-29] MEDS: ATORVASTATIN 20 MG TAB PO SCH ×2 (00:14→21:04)
[2022-09-29] MEDS: LATANOPROST 0.005% OPHTH DROPS 2.5 ML BTL BOTH EYES SCH ×2 (00:14→21:04)
[2022-09-29] MEDS: SODIUM CHLORIDE 0.9% 1,000 ML IV SCH ×2 (00:15→21:05)
[2022-09-29] MEDS: BRIMONIDINE TARTRATE 0.2% DROPS 5 ML BTL BOTH EYES SCH ×3 (00:46→21:04)
[2022-09-29] MEDS ORDERED: bisacodyL 5 MG TABLET.DR PO PRN (09:31)
[2022-09-29] MEDS ORDERED: ONDANSETRON 4 MG/2 ML VIAL IVP PRN (09:31)
[2022-09-29] MEDS ORDERED: polyethylene glycoL 3350 17 GM POWD.PACK PO PRN (09:32)
--- NOTE | 2022-09-29 09:35 | P.HPIM ---
History of Present Illness H&P Date: 09/29/22 Patient is a 73-year-old gentleman with a history of hypertension, dyslipidemia, GERD, and asthma who presented to the hospital due to pain after fall off a ladder. On arrival to the ER he underwent extensive evaluation. On arrival his vital signs within normal limits. Laboratory analysis reviewed and remarkable for platelets 120, sodium 136, BUN 21, creatinine 0.55, glucose 108. CT abdomen and pelvis shows no suspicious renal or ureteral stones, normal appendix, and degenerative disc changes throughout the thoracic lumbar spine. He was unabel to ambulate and therefore was admitted for pain control. Patient seen and examined at bedside. He reports that he fell off the ladder after trying to nail something to a metal roof. He did not lose consciousness. He reports that he landed on his buttock. He forced himself to get up. Since that time he has been having significant pain when standing. When he is recumbent underlying his pain is manageable. However when he stands he gets severe pain into bilateral groins on the front. It as well as some low back pain. Today he is starting to have some numbness going down the right anterior thigh. He reports that he cannot stand on his left leg due to the severity of the groin pain. He was recently undergoing workup by his neurologist for worsening low back and groin pain. He had a CT of his lumbar spine completed on 09/24/22 and they recommended an MRI, however he cannot have this done due to history of shrapnel in his eyes. He denies any other recent illnesses. He denies any cardiac problems. Vital signs reviewed General: nontoxic, no distress, appears at stated age Derm: warm, dry Eyes: EOMI, no lid lag, anicteric sclera, pupils equal round reactive to light ENT: Nose and ears atraumatic, no thrush, no pharyngeal erythema Cardiovascular: S1S2 reg, no murmur, positive posterior tibial pulse bilateral, no edema, capillary refill less than 2 seconds Lungs: clear to auscultation bilateral, no rhonchi, no rales, no wheeze, no accessory muscle use Abdominal: soft, nontender to palpation, no guarding, no appreciable organomegaly, normal bowel sounds Ext: no gross muscle atrophy, muscle strength 5 out of 5 in bilateral upper extremities, 5 out of 5 in right lower extremity, unable to do formal muscle strength testing in left lower extremity secondary to pain. Neuro: CN II-XII grossly intact, light touch intact all 4 extremities Back: No spinous process tenderness, no bruising Psych: Alert, oriented, appropriate affect Assessment/Plan: 72-year-old male status post fall from a ladder approximately 10 feet with intractable groin pain with standing - Place in observation -Suspect significant lumbar disc disease given recent lumbar spine CT which showed severe spinal canal stenosis with moderate to severe bilateral neural foraminal stenosis at L3-4 -Start Decadron 4 mg every 6 hours IV -Consult orthopedic spine -Check left hip x-ray -Continue with morphine 4 mg IV every 4 hours for severe pain, add [place] 5/325 every 6 hours when necessary for moderate pain -PT/OT evaluation Hypertension Dyslipidemia -Zocor 40 mg daily, Lasix 20 mg daily Chronic constipation -Resume home MiraLAX 17 mg daily as needed Chronic: Asthma without exacerbation GERD Imaging: As per HPI Data Review: As per HPI The patient is placed in observation due to intractable pain after fall with an anticipated less than 2 minutes stay Surrogate decision-maker: CODE STATUS:Full DVT prophylaxis: SCDs Discussed with: Patient, nursing Anticipated discharge date: Pending Clinical Course Anticipated discharge place: Pending Clinical Course This dictation was prepared using [employer] voice recognition software. Though every attempt is made to correct errors during dictation some may still exist. Past Medical History Past Medical History: Asthma, GERD/Reflux, Hyperlipidemia, Hypertension, Osteoarthritis (OA) Additional Past Medical History / Comment(s): constipation,very small stool w/ undigested foods History of Any Multi-Drug Resistant Organisms: None Reported Past Surgical History: Orthopedic Surgery Additional Past Surgical History / Comment(s): testicle, right rot cuff,right knee, right arm nerve surgery,TURP,karen shoulder replacement Past Anesthesia/Blood Transfusion Reactions: No Reported Reaction Past Psychological History: No Psychological Hx Reported Smoking Status: Never smoker - Past Family History Mother Family Medical History: Cancer Additional Family Medical History / Comment(s): stomach Father Family Medical History: COPD Medications and Allergies Home Medications Medication Instructions Recorded Confirmed Type Carboxymethylcellulose Sodium 1 drop BOTH EYES BID PRN 07/12/21 09/28/22 History [Refresh Tears] Fluticasone Nasal [place] [Flonase 1 spray EA NOSTRIL DAILY 07/12/21 09/28/22 History Nasal [place]] Fluticasone Propion/Salmeterol 1 puff INHALATION RT-BID 07/12/21 09/28/22 History [Wixela 100-50 Inhub] Furosemide [Lasix] 20 mg PO DAILY 07/12/21 09/28/22 History Latanoprost/Pf [Latanoprost 0.005% 1 drop BOTH EYES HS 07/12/21 09/28/22 History Eye Drop] Naproxen Sodium [Aleve] 220 mg PO BID PRN 07/12/21 09/28/22 History RX: Omeprazole 20 mg PO DAILY 07/12/21 09/28/22 History RX: Potassium Chloride 10 meq PO DAILY 07/12/21 09/28/22 History Vit C/E/Zn/Coppr/Lutein/Zeaxan 1 tab PO BID 07/12/21 09/28/22 History [Preservision Areds 2 Chew Tab] Brimonidine Tartrate [Alphagan P 1 drop BOTH EYES BID 09/28/22 09/28/22 History 0.2% Ophth Soln] Calcium Carbonate 1.25 Gm Tab 1.25 gm PO DAILY 09/28/22 09/28/22 History Cholecalciferol [Vitamin D3 (10 10 mcg PO DAILY 09/28/22 09/28/22 History Mcg = 400 Iu)] Ketotifen 0.025% Ophth Soln 1 drop BOTH EYES BID PRN 09/28/22 09/28/22 History [Zaditor] Simvastatin [Zocor] 40 mg PO HS 09/28/22 09/28/22 History polyethylene glycoL 3350 [Miralax] 17 gm PO DAILY PRN 09/28/22 09/28/22 History Allergies Allergy/AdvReac Type Severity Reaction Status Date / Time adhesive AdvReac Rash/Hives Verified 09/28/22 21:00 Physical Exam Osteopathic Statement: *. No significant issues noted on an osteopathic structural exam other than those noted in the History and Physical/Consult. Vitals: Vital Signs Temp Pulse Pulse Resp BP BP Pulse Ox 09/29/22 08:00 54 L 17 09/29/22 07:00 98.4 F 54 L 17 130/75 95 09/29/22 02:00 98.5 F 63 16 122/68 09/28/22 23:30 60 18 08/06/23 21:52 98.1 F 60 18 134/66 95 09/28/22 21:16 52 L 18 129/73 94 L 09/28/22 16:24 98.4 F 65 16 135/76 97 Intake and Output 09/28/22 09/29/22 09/29/22 22:59 06:59 14:59 Intake Total 118 Output Total 500 200 Balance -500 -82 Intake: Oral 118 Output: Urine 500 200 Other: Voiding Method Urinal Urinal Weight 117.934 kg Results CBC & Chem 7: 09/28/22 17:18 09/28/22 17:18 Labs: Abnormal Lab Results - Last 24 Hours (Table) 09/28/22 09/28/22 Range/Units 17:18 17:18 Plt Count 120 L (150-450) k/uL Sodium 136 L (137-145) mmol/L BUN 21 H (9-20) mg/dL Creatinine 0.55 L (0.66-1.25) mg/dL Glucose 108 H (74-99) mg/dL Thrombosis Risk Factor Assmnt - Choose All That Apply Any of the Below Risk Factors Present?: Yes Each Factor Represents 1 point: Obesity (BMI >25) Other Risk Factors: Yes Each Risk Factor Represents 2 Points: Age 61-74 years Other congenital or acquired thrombophilia - If yes, enter type in comment: No Thrombosis Risk Factor Assessment Total Risk Factor Score: 3 Thrombosis Risk Factor Assessment Level: Moderate Risk
[2022-09-29] MEDS: SYMBICORT 80-4.5 MCG INHALER INHALATION SCH ×2 (12:17→19:37)
[2022-09-29] MEDS: DEXAMETHASONE SOD PHOSPHATE 4 MG/ML 1 ML VIAL IVP SCH ×2 (12:55→17:30)
--- NOTE | 2022-09-29 13:24 | XR ---
EXAMINATION TYPE: XR Hip Complete LT DATE OF EXAM: 09/29/2022 COMPARISON: 11/05/2018 HISTORY: Pain following fall TECHNIQUE: 2 view left hip FINDINGS: No acute fracture or dislocation is evident. Joint spaces preserved. Follow-up can be performed clinically as indicated. IMPRESSION: 1. No acute osseous abnormality left hip.
--- NOTE | 2022-09-29 15:41 | P.CNOR ---
History of Present Illness - [facility] Consult date: 09/29/22 History of present illness: Patient is a 72-year-old male who presents emergency department with a chief complaint of fall. Patient was seen at bedside this morning. Orthopedics was consulted for lower extremity radiculopathy and left hip pain as well as low back pain. Patient says this past Thursday he was working on his roof when he was on his ladder about 10 feet he fell and landed on his right hip. Currently at bedside patient complains of left groin pain. Patient says the groin pain worsens when he tries to bear weight to the left lower extremity. Patient says pain is somewhat alleviated when he rests. Patient denies losing consciousness. Patient denies any exacerbation of back pain at this time. Patient denies any saddle anesthesia. Patient does have a history of right lower extremity radiculopathy. Patient does follow up with a neurologist and did have a computed tomography scan of the lumbar spine completed last week prior to the fall. Patient does have some degenerative disc sees and mild to moderate stenosis throughout the lumbar spine. Patient denies chest pain, fever, shortness of breath, nausea, vomiting, change in vision, loss of bowel/bladder control. Past Medical History Past Medical History: Asthma, GERD/Reflux, Hyperlipidemia, Hypertension, Oste oarthritis (OA) Additional Past Medical History / Comment(s): constipation,very small stool w/ undigested foods History of Any Multi-Drug Resistant Organisms: None Reported Past Surgical History: Orthopedic Surgery Additional Past Surgical History / Comment(s): testicle, right rot cuff,right knee, right arm nerve surgery,TURP,karen shoulder replacement Past Anesthesia/Blood Transfusion Reactions: No Reported Reaction Past Psychological History: No Psychological Hx Reported Smoking Status: Never smoker - Past Family History Mother Family Medical History: Cancer Additional Family Medical History / Comment(s): stomach Father Family Medical History: COPD Medications and Allergies Home Medications Medication Instructions Recorded Confirmed Type Carboxymethylcellulose Sodium 1 drop BOTH EYES BID PRN 07/12/21 09/28/22 History [Refresh Tears] Fluticasone Nasal [place] [Flonase 1 spray EA NOSTRIL DAILY 07/12/21 09/28/22 History Nasal [place]] Fluticasone Propion/Salmeterol 1 puff INHALATION RT-BID 07/12/21 09/28/22 History [Wixela 100-50 Inhub] Furosemide [Lasix] 20 mg PO DAILY 07/12/21 09/28/22 History Latanoprost/Pf [Latanoprost 0.005% 1 drop BOTH EYES HS 07/12/21 09/28/22 History Eye Drop] Naproxen Sodium [Aleve] 220 mg PO BID PRN 07/12/21 09/28/22 History Omeprazole 20 mg PO DAILY 07/12/21 09/28/22 History Potassium Chloride 10 meq PO DAILY 07/12/21 09/28/22 History Vit C/E/Zn/Coppr/Lutein/Zeaxan 1 tab PO BID 07/12/21 09/28/22 History [Preservision Areds 2 Chew Tab] Brimonidine Tartrate [Alphagan P 1 drop BOTH EYES BID 09/28/22 09/28/22 History 0.2% Ophth Soln] Calcium Carbonate 1.25 Gm Tab 1.25 gm PO DAILY 09/28/22 09/28/22 History Cholecalciferol [Vitamin D3 (10 10 mcg PO DAILY 09/28/22 09/28/22 History Mcg = 400 Iu)] Ketotifen 0.025% Ophth Soln 1 drop BOTH EYES BID PRN 09/28/22 09/28/22 History [Zaditor] Simvastatin [Zocor] 40 mg PO HS 09/28/22 09/28/22 History polyethylene glycoL 3350 [Miralax] 17 gm PO DAILY PRN 09/28/22 09/28/22 History Allergies Allergy/AdvReac Type Severity Reaction Status Date / Time adhesive AdvReac Rash/Hives Verified 09/28/22 21:00 Physical Examination Inspection: Negative for any open fractures, significant erythema/ecchymosis/wounds. Sensation: Some numbness present over the front anterior thigh and the right lower extremity. Sensation is equal, symmetric, by intact throughout the rest of the upper and lower extremity exam. Palpation: Moderate tenderness patient over the bilateral SI joints and the low back and midline. Nontender to palpation throughout rest of exam. Range of motion: Patient has full range of motion bilateral upper extremities on exam. Patient does have full range of motion in right lower extremity exam. There is limited range of motion in the left lower extremity and hip flexion extension and knee flexion/extension secondary to referred pain to the left groin. Patient is a for range of motion in left ankle in dorsi/plantar flexion and EHL/FHL on the left lower extremity. Motor: Upper extremities 5/5 bilaterally. Right lower extremity 4+/5 in all major motor groups. 4-/5 in resisted left hip flexion extension and 4/5 in resisted left knee flexion extension. 4+/5 in resisted left lower extremity EHL/FHL and ankle dorsi/plantar flexion Special tests: Negative Homans bilaterally. Negative Boris bilaterally. Negative clonus bilaterally. Neurovascular status: Radial pulses intact, 2+. Cap refill under 3 seconds in digits upper extremities. Results - Labs Labs: Abnormal Lab Results - Last 24 Hours (Table) 09/28/22 09/28/22 Range/Units 17:18 17:18 Plt Count 120 L (150-450) k/uL Sodium 136 L (137-145) mmol/L BUN 21 H (9-20) mg/dL Creatinine 0.55 L (0.66-1.25) mg/dL Glucose 108 H (74-99) mg/dL H & H 09/28/22 Range/Units 17:18 Hgb 13.7 (13.0-17.5) gm/dL Hct 39.8 (39.0-53.0) % Result Diagrams: 09/28/22 17:18 09/28/22 17:18 Assessment and Plan Assessment: 1. Left groin pain; low back pain; right lower extremity radiculopathy Plan: 1. Left groin pain; low back pain; right lower extremity radiculopathy - patient stable at bedside this morning. Patient does not present with any significant tensioning signs on exam. Patient does have good strength on exam. I did consult with my attending, Dr. Richmond. At this time we're not recommending any emergent/urgent orthopedic surgical intervention. Patient may weight-bear as tolerated with walker and assistance as needed. Pain medication as needed. X-ray left hip is negative for any fractures/dislocations. Patient is stable from orthopedic standpoint for discharge. We'll continue to be available as needed. We do recommend patient to follow-up in the outpatient setting for further evaluation as needed with Dr. Richmond 2. Appreciate medical management 3. Pain management - [place]; Tylenol 4. DVT prophylaxis - mechanical 5. GI prophylaxis - Dulcolax; Protonix 6. PT/OT - weightbearing as tolerated with walker and assistance as necessary 7. Appreciate consult Time with Patient: Less than 30
[2022-09-29] MEDS ORDERED: MELATONIN 3 MG TABLET PO PRN (21:00)
[2022-09-29] MEDS: ACETAMINOPHEN TAB 325 MG TAB PO PRN (21:04)
[2022-09-30] MEDS: DEXAMETHASONE SOD PHOSPHATE 4 MG/ML 1 ML VIAL IVP SCH ×4 (00:21→18:31)
[2022-09-30] MEDS: BRIMONIDINE TARTRATE 0.2% DROPS 5 ML BTL BOTH EYES SCH ×2 (08:52→20:20)
[2022-09-30] MEDS: CALCIUM CARBONATE 500 MG CHEWABLE PO SCH (08:52)
[2022-09-30] MEDS: FUROSEMIDE 20 MG TAB PO SCH (08:53)
[2022-09-30] MEDS: PANTOPRAZOLE 40 MG TABLET PO SCH (08:53)
[2022-09-30] MEDS: SYMBICORT 80-4.5 MCG INHALER INHALATION SCH ×2 (09:43→20:05)
[2022-09-30 11:04] LABS: HCT 41.7 % (39.6-50.0); MCH 30.6 pg (27.0-32.0); MCHC 33.6 d/dL (32.0-37.0); Mean Platelet Volume 11.3 FL (9.5-12.2); NRBC Per 100 WBC 0 X 10*3/uL (0.00-0.01); Platelet Count 147 X 10*3/uL (140-440); RBC 4.58 X 10*6/uL (4.40-5.60); RDW 13.2 % (11.5-14.5); WBC 9.78 X 10*3/uL (4.50-10.00)
[2022-09-30 11:07] LABS: BUN/Creat Ratio 19.17 Ratio (12.00-20.00); Blood Urea Nitrogen 11.5 mg/dL (9.0-27.0); Carbon Dioxide 23.9 mmol/L (21.6-31.8); Chloride 108 mmol/L (96-109); Glucose 130 mg/dL (70-110); Potassium 4.1 mmol/L (3.5-5.5); Sodium 142 mmol/L (135-145)
[2022-09-30] MEDS: SODIUM CHLORIDE 0.9% 1,000 ML IV SCH (20:19)
[2022-09-30] MEDS: LATANOPROST 0.005% OPHTH DROPS 2.5 ML BTL BOTH EYES SCH (20:20)
[2022-09-30] MEDS: ATORVASTATIN 20 MG TAB PO SCH (20:20)
--- NOTE | 2022-09-30 20:39 | P.PN ---
Subjective Progress Note Date: 09/30/22 Hospital course: Patient is a 73-year-old gentleman with a history of hypertension, dyslipidemia, GERD, and asthma who presented to the hospital due to pain after fall off a ladder. On arrival to the ER he underwent extensive evaluation. On arrival his vital signs within normal limits. Laboratory analysis reviewed and remarkable for platelets 120, sodium 136, BUN 21, creatinine 0.55, glucose 108. CT abdomen and pelvis shows no suspicious renal or ureteral stones, normal appendix, and degenerative disc changes throughout the thoracic lumbar spine. He was unabel to ambulate and therefore was admitted for pain control. Physical exam: Vital signs reviewed and stable. General: Nontoxic, no distress and appears stated age. Derm: Skin warm and dry, normal coloration for ethnicity. Head: Atraumatic, normocephalic and symmetric. Eyes: EOMs intact, no lid lag, and anicteric sclera Mouth: no lip lesions, mucus membranes moist Cardiovascular: regular rate and rhythm with normal S1S2, systolic murmur, positive posterior tibial pulses bilaterally, and cap refill < 2 seconds. Lungs: Respirations even, regular, and unlabored on room air. Lungs CTA bilaterally, no rhonchi, no rales, no wheezing, and no accessory muscle usage. Abdominal: soft, nontender to palpation, no guarding, no appreciable organomegaly Ext: Movement and sensation intact. Patient with left lower extremity noted to be weaker than right lower extremity. Patient reports increased pain when att empting to raise or move left lower extremity. No gross muscle atrophy, no edema, no contractures Neuro: Speech clear, face symmetrical and CN II-XII grossly intact with no noted focal neuro deficits Psych: Alert and oriented to person, place, time, and situation. Appropriate and pleasant affect. Assessment and Plan of Care: Lumbar spine stenosis Intractable back/hip pain radiating into groin Left lower extremity weakness secondary to pain -Orthospine surgery consulted, appreciate recommendations -Symptomatic care and pain management with [place] 5/325 every 6 hours as needed for mild to moderate pain and morphine 4 mg IVP every 4 hours as needed for severe pain -Continue Decadron 4 mg IVP every 6 hours pending further recommendations from orthospine surgery team -Fall precautions -Consult PT/OT Imaging reviewed: -X-ray left hip completed in radiology report reviewed negative for acute fracture or dislocation Data review: -Vital signs reviewed and stable. Blood pressure 148/74, heart rate 57, respiratory rate 16, temperature 97.7F, and SpO2 of 96% on room air. CODE STATUS: Full code DVT prophylaxis: Heparin Discussed with: Patient and RN Anticipated discharge date: Clinical course to determine, pending recommendations for orthospine surgery team Anticipated discharge place: Home versus skilled rehab Patient was seen independently by Nurse Pracitioner. This document was prepared using [employer] dictation software. Please allow for errors in supervisor drawing, while rare they do occur. Luis Gallagher NP rendered care for this patient independently, reviewed the findings and plan as documented in the note above. I did not physically speak with or examine the patient on this date. Objective - Vital Signs Vital signs: Vital Signs Temp 97.6 F 09/30/22 02:19 Pulse 65 09/30/22 02:19 Resp 17 09/30/22 02:19 BP 131/75 09/30/22 02:19 Pulse Ox 94 L 09/30/22 02:19 FiO2 Intake & Output 09/29/22 09/30/22 09/30/22 18:59 06:59 18:59 Intake Total 354 Output Total 825 1250 Balance -471 -1250 Intake: Oral 354 Output: Urine 825 1250 Other: Voiding Method Urinal Urinal # Voids 1 - Labs CBC & Chem 7: 10/03/22 07:02 10/03/22 07:02
[2022-10-01] MEDS: HEPARIN SODIUM,PORCINE 5,000 UNIT/ML 1 ML VIAL SQ SCH ×4 (00:57→23:41)
[2022-10-01] MEDS: DEXAMETHASONE SOD PHOSPHATE 4 MG/ML 1 ML VIAL IVP SCH ×5 (00:57→23:40)
[2022-10-01] MEDS: PANTOPRAZOLE 40 MG TABLET PO SCH (07:48)
[2022-10-01] MEDS: FUROSEMIDE 20 MG TAB PO SCH (07:48)
[2022-10-01] MEDS: ACETAMINOPHEN TAB 325 MG TAB PO PRN (07:48)
[2022-10-01] MEDS: CALCIUM CARBONATE 500 MG CHEWABLE PO SCH (07:48)
[2022-10-01] MEDS: BRIMONIDINE TARTRATE 0.2% DROPS 5 ML BTL BOTH EYES SCH ×2 (07:49→20:19)
[2022-10-01] MEDS: SYMBICORT 80-4.5 MCG INHALER INHALATION SCH ×2 (09:17→19:28)
[2022-10-01] MEDS: HYDROcodone/APAP 5-325MG 1 EACH TAB PO PRN (09:52)
--- NOTE | 2022-10-01 11:47 | FL ---
EXAMINATION TYPE: FL myelogram lumbosacral DATE OF EXAM: 10/01/2022 11:15 AM HISTORY: Lower extremity pain and numbness Despite multiple attempts appropriate pathway could not be localized and therefore the examination wa s discontinued. 2 minutes of fluoroscopic time utilized.
--- NOTE | 2022-10-01 16:03 | P.PN ---
Subjective Progress Note Date: 10/01/22 Hospital course: Patient is a 73-year-old gentleman with a history of hypertension, dyslipidemia, GERD, asthma, and chronic right lower extremity are radiculopathies. He presented to the hospital on 09/28/22 secondary to uncontrolled pelvic/hip/groin pain after falling 10 feet off of flatter on 09/28/22. Upon arrival to the emergency department, patient underwent extensive evaluation. Labs were completed and reviewed. CBC remarkable for platelets 120 and BMP sodium 136, BUN 21, creatinine 0.55, glucose 108. CT abdomen and pelvis shows no suspicious renal or ureteral stones, normal appendix, and degenerative disc changes throughout the thoracic lumbar spine. Previous CT completed on 09/28/22 revealed moderate to severe multilevel disc degenerative changes of the spine worse at L3-L4 with moderate to severe neural foraminal stenosis bilaterally and severe spinal canal stenosis. Patient was unable to ambulate and therefore was admitted for pain control and evaluation by PT/OT. Upon initial evaluation by physical therapy, was noted to have minimal ability to move left lower extremity and initially ambulated short steps with decreased weightbearing throughout left lower extremity on day 2 of evaluation by physical therapy patient was no longer able to ambulate only able to stand and pivot to transfer to chair. Patient with increased pain in lower back, hip/groin, continued weakness and inability to lift/move left lower extremity and new reports of saddlebag anesthesias. Notified orthospine surgeon and per his recommendations, Placed order for urgent myelogram and CT. Physical exam: Patient seen and fully evaluated at bedside this morning. Patient reporting increased pain in lower back, hip/groin, worsening weakness of left lower extremity and new onset saddlebag anesthesias with numbness to bilateral inner thighs. Patient reports chronic radiculopathic use of right lower extremity but states left lower extremity weakness and pain is all new since his fall on 09/28/22 and have progressively worsened. Vital signs reviewed and stable. General: Nontoxic, no distress and appears stated age. Derm: Skin warm and dry, normal coloration for ethnicity. Head: Atraumatic, normocephalic and symmetric. Eyes: EOMs intact, no lid lag, and anicteric sclera Mouth: no lip lesions, mucus membranes moist Cardiovascular: regular rate and rhythm with normal S1S2, systolic murmur, positive posterior tibial pulses bilaterally, and cap refill < 2 seconds. Lungs: Respirations even, regular, and unlabored on room air. Lungs CTA bilaterally, no rhonchi, no rales, no wheezing, and no accessory muscle usage. Abdominal: soft, nontender to palpation, no guarding, no appreciable organomegaly Ext: Movement and sensation intact. Patient with left lower extremity noted to be significantly weaker than right lower extremity today. Patient reports increased pain when attempting to raise or move left lower extremity and now reporting new onset numbness to bilateral inner thighs/saddlebag anesthesias. He continues to deny having any involuntary loss of bowel or bladder. No gross muscle atrophy, no edema, no contractures. Neuro: Speech clear, face symmetrical and CN II-XII grossly intact with no noted focal neuro deficits. Psych: Alert and oriented to person, place, time, and situation. Appropriate and pleasant affect. Assessment and Plan of Care: Increasing Left lower extremity weakness with inability to ambulate Increasing lower lumbar back pain with reports of new saddlebag anesthesias Lumbar spine stenosis -Orthospine surgery following and called to discuss patient's worsening complaints and weakness of left lower extremity with orthopedic surgeon. Per his recommendation orders placed for urgent myelogram and CT. -Review documentation in chart, Upon initial evaluation by physical therapy, was noted to have minimal ability to move left lower extremity and initially ambulated short steps with decreased weightbearing throughout left lower extremity on day 2 of evaluation by physical therapy patient was no longer able to ambulate only able to stand and pivot to transfer to chair. -Continue with Symptomatic care and pain management with [place] 5/325 every 6 hours as needed for mild to moderate pain and morphine 4 mg IVP every 4 hours as needed for severe pain -Continue Decadron 4 mg IVP every 6 hours pending further recommendations from orthospine surgery team -Fall precautions -Consult PT/OT Imaging reviewed: -No new imaging available for review at this time, order placed for myelogram lumbar sacral spine and CT. Data review: -Vital signs reviewed and stable. Blood pressure 134/61, heart rate 64, respiratory rate 16, and SpO2 99% on room air. CODE STATUS: Full code DVT prophylaxis: Heparin Discussed with: Patient, orthopedic surgeon and RN Anticipated discharge date: Clinical course to determine, pending recommendations for orthospine surgery team Anticipated discharge place: Home versus skilled rehab Patient was seen independently by Nurse Pracitioner. This document was prepared using [employer] dictation software. Please allow for errors in assistant education director, while rare they do occur. Luis Gallagher, [employer] rendered care for this patient independently, reviewed the findings and plan as documented in the note above. I did not physically speak with or examine the patient on this date. Objective - Vital Signs Vital signs: Vital Signs Temp 97.6 F 10/01/22 07:00 Pulse 56 L 10/01/22 07:00 Resp 16 10/01/22 07:00 BP 155/76 10/01/22 07:00 Pulse Ox 97 10/01/22 07:00 FiO2 Intake & Output 09/30/22 10/01/22 10/01/22 18:59 06:59 18:59 Intake Total 118 Output Total 600 1950 400 Balance -600 -1950 -282 Intake: Oral 118 Output: Urine 600 1950 400 Other: Voiding Method Urinal Urinal - Labs CBC & Chem 7: 10/03/22 07:02 10/03/22 07:02 Labs: Abnormal Lab Results - Last 24 Hours (Table) 09/30/22 Range/Units 06:05 Glucose 130 H (70-110) mg/dL
--- NOTE | 2022-10-01 16:03 | P.PN ---
Progress Note - Text Progress Note Date: 10/01/22 As stated in progress note earlier today, patient reporting increased pain to lower lumbar region of back radiating into left hip and groin accompanied by severe pain and weakness in left lower extremity. Patient reports pain and weakness has been progressively worsening since his fall and is now experiencing new onset reports of several back anesthesia with reports of numbness to bilateral inner thighs. This was discussed thoroughly with neurosurgeon who isn't not available and out of town at this time. Per his recommendations and orders placed for urgent myelogram and CT of the lumbar sacral spine. Patient was taken down for procedure, however was notified that despite multiple att empts Dr. Howell was unable to complete procedures secondary to inability to localize appropriate pathway for epidural injection. Notified orthopedic surgeon. Initially requesting patient to be transferred to [facility] to undergo testing and then to return here. Unfortunately due to facility regulations/policies, if patient is transferred for testing that is unable to be completed at this facility and patient requires higher level of care, patient will need to be fully transferred to facility and tp continue all further treatment/procedures at receiving facility. This was discussed with patient secondary to his increasing pain, weakness, and new neurological deficit of saddlebag anesthesias. It is recommended patient undergo transfer, however patient requested to have another provider attempt procedure, he was informed that another radiologist for procedure will not be available until next week and with his worsening condition and patient risks permanent damage by delaying t esting and possible surgical intervention. Patient very adamant that he wants to remain at our facility and undergo any needed testing and treatment by our physicians as he states he has grown comfortable and confident with them and would like to continue his care here. Patient again remains very adamant, again called and discussed further with orthopedic surgeon. Patient to remain in our facility per his request and patient reports full understanding of risks of permanent damage and deficits resulting from delay of testing and treatment. RN at bedside witnessed conversation and patient's verbalization of understanding risks of delaying testing and/or treatment by declining transfer at this time. We will continue with aggressive conservative treatment by keeping patient on steroids with Decadron 4 mg every 6 hours, neurovascular checks of bilateral lower extremities Q4 hours, and symptomatic care and pain management. Dr. Richmond was notified of patient's decline for transfer and aware patient has chosen to remain at our facility with hopes for evaluation by another provider to undergo much-needed myelogram with CT of lower lumbar and sacral region. Luis Gallagher NP rendered care for this patient independently, reviewed the findings and plan as documented in the note above. I did not physically speak with or examine the patient on this date.
[2022-10-01] MEDS: SODIUM CHLORIDE 0.9% 1,000 ML IV SCH (20:18)
[2022-10-01] MEDS: LATANOPROST 0.005% OPHTH DROPS 2.5 ML BTL BOTH EYES SCH (20:19)
[2022-10-01] MEDS: ATORVASTATIN 20 MG TAB PO SCH (20:19)
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
[2022-10-02] MEDS: DEXAMETHASONE SOD PHOSPHATE 4 MG/ML 1 ML VIAL IVP SCH ×4 (06:02→23:25)
[2022-10-02] MEDS: SYMBICORT 80-4.5 MCG INHALER INHALATION SCH ×2 (07:42→21:14)
[2022-10-02] MEDS: CALCIUM CARBONATE 500 MG CHEWABLE PO SCH (08:56)
[2022-10-02] MEDS: FUROSEMIDE 20 MG TAB PO SCH (08:56)
[2022-10-02] MEDS: HEPARIN SODIUM,PORCINE 5,000 UNIT/ML 1 ML VIAL SQ SCH ×3 (08:56→23:25)
[2022-10-02] MEDS: BRIMONIDINE TARTRATE 0.2% DROPS 5 ML BTL BOTH EYES SCH ×2 (08:56→19:57)
[2022-10-02] MEDS: PANTOPRAZOLE 40 MG TABLET PO SCH (08:56)
--- NOTE | 2022-10-02 09:51 | P.PN ---
Subjective Progress Note Date: 10/02/22 Principal diagnosis: Fall with injury Left groin pain Low back pain Right lower extremity radiculopathy Patient seen and examined this morning. Patient is sitting upright in bed eating breakfast, tolerating well. Patient does have complaint of a dull ache lumbar pain that radiates into the right lower extremity associated with numbness. Patient also states he has a sharp pain in the left groin that radiates down the inner lateral left extremity to the left foot, without numbness or tingling. Patient states he does have full range of motion of the right lower extremity, limited range of motion due to pain of the left lower extremity. Patient is able toward within room with walker. Patient again verbalizes he understands the risks vs benefits of remaining at this facility awaiting CT myelogram of the lumbar spine to be attempted on 10/06/2022. Patient seems to be in good spirits. He states his pain is managed on current regimen. She has been afebrile, denies nausea/vomiting, or chest pain. Objective - Vital Signs Vital signs: Vital Signs Temp 98.1 F 10/02/22 07:40 Pulse 56 L 10/02/22 07:40 Resp 16 10/02/22 07:40 BP 152/89 10/02/22 07:40 Pulse Ox 95 10/02/22 07:40 FiO2 Intake & Output 10/01/22 10/02/22 10/02/22 18:59 06:59 18:59 Intake Total 236 Output Total 400 Balance -164 Intake: Oral 236 Output: Urine 400 Other: Voiding Method Urinal # Voids 2 1 - Exam Inspection: Negative for any open fractures, ecchymosis, significant e rythema/ulcers. Sensation: Sensation is equal, symmetric, bilaterally intact throughout the upper and left lower extremities, patient reports numbness to the right buttock and thigh Palpation: Nontender to palpation throughout bilateral upper and lower extremities and throughout spine exam Range of motion: Patient does have full range of motion bilateral upper and right lower extremities on exam, he does demonstrate limited left hip extension due to pain Motor: 5/5 in all major motor groups in the bilateral upper and lower extremities Special tests: Negative Homans bilaterally. Negative Boris bilaterally. Negative clonus bilaterally. Neurovascular: Radial pulse intact, 2+ bilaterally. Cap refill under 3 seconds in digits upper extremities. - Labs CBC & Chem 7: 09/30/22 06:05 09/30/22 06:05 Assessment and Plan Assessment: Lumbar spondylosis T11-L1, L3-L4 vacuum disc phenomenon Moderate/severe stenosis T11-T12, L2-L4 Fall with injury Bilateral lower extremity radiculopathy Plan: -Appreciate home planning consultant salesperson and team management. -Activity: Ambulate QID, OOB all meals, up and about, limit lifting bending twisting to less than 5 lbs. Use walker or cane if needed for stability. -Pain control: Adequate at this time -Meds: reviewed -GI ppx: senna, Miralax -DVT PPX: Heparin -Encourage IS 10x/hr -Dispo: Clinically pending *I reviewed and discussed this case with my attending Dr. Richmond, whom has reviewed this chart and films and is in agreement with assessment and plan of care as outlined above. I have personally seen and examined the patient, performed the documentation and the assessment and plan as written. Number of minutes spent on the visit: 20m.
[2022-10-02] MEDS ORDERED: KETOROLAC 15 MG/ML 1 ML VIAL IVP STA (12:29)
[2022-10-02] MEDS ORDERED: diphenhydrAMINE 50 MG/ML 1 ML VIAL IVP STA (12:29)
[2022-10-02] MEDS ORDERED: PROCHLORPERAZINE INJ 10 MG/2 ML VIAL IVP STA (12:29)
[2022-10-02] MEDS: HYDROcodone/APAP 5-325MG 1 EACH TAB PO PRN (12:33)
[2022-10-02] MEDS: bisacodyL 5 MG TABLET.DR PO SCH (12:33)
[2022-10-02] MEDS: SODIUM CHLORIDE 0.9% 1,000 ML IV SCH (16:45)
--- NOTE | 2022-10-02 18:14 | P.PN ---
Subjective Progress Note Date: 10/02/22 Hospital course: Patient is a 73-year-old gentleman with a history of hypertension, dyslipidemia, GERD, asthma, and chronic right lower extremity are radiculopathies. He presented to the hospital on 09/28/22 secondary to uncontrolled pelvic/hip/groin pain after falling 10 feet off of flatter on 09/28/22. Upon arrival to the emergency department, patient underwent extensive evaluation. Labs were completed and reviewed. CBC remarkable for platelets 120 and BMP sodium 136, BUN 21, creatinine 0.55, glucose 108. CT abdomen and pelvis shows no suspicious renal or ureteral stones, normal appendix, and degenerative disc changes throughout the thoracic lumbar spine. Previous CT completed on 09/28/22 revealed moderate to severe multilevel disc degenerative changes of the spine worse at L3-L4 with moderate to severe neural foraminal stenosis bilaterally and severe spinal canal stenosis. Patient was unable to ambulate and therefore was admitted for pain control and evaluation by PT/OT. Upon initial evaluation by physical therapy, was noted to have minimal ability to move left lower extremity and initially ambulated short steps with decreased weightbearing throughout left lower extremity on day 2 of evaluation by physical therapy patient was no longer able to ambulate only able to stand and pivot to transfer to chair. Patient with increased pain in lower back, hip/groin, continued weakness and inability to lift/move left lower extremity and new reports of saddlebag anesthesias. Notified orthospine surgeon and per his recommendations, Placed order for urgent myelogram and CT. Physical exam: Patient seen and fully evaluated at bedside this morning. Patient was lying in bed this morning at time of assessment. He currently reports pain is controlled but again exacerbates with any movement. Patient reports saddlebag anesthesias remain to bilateral inner thighs. He continues to deny any involuntary loss of bowel or bladder. Vital signs reviewed and stable. General: Nontoxic, no distress and appears stated age. Derm: Skin warm and dry, normal coloration for ethnicity. Head: Atraumatic, normocephalic and symmetric. Eyes: EOMs intact, no lid lag, and anicteric sclera Mouth: no lip lesions, mucus membranes moist Cardiovascular: regular rate and rhythm with normal S1S2, systolic murmur, positive posterior tibial pulses bilaterally, and cap refill < 2 seconds. Lungs: Respirations even, regular, and unlabored on room air. Lungs CTA bilaterally, no rhonchi, no rales, no wheezing, and no accessory muscle usage. Abdominal: soft, nontender to palpation, no guarding, no appreciable o rganomegaly Ext: Movement and sensation intact. Patient with left lower extremity noted to be significantly weaker than right lower extremity today. Patient reports increased pain when attempting to raise or move left lower extremity and now reporting new onset numbness to bilateral inner thighs/saddlebag anesthesias. He continues to deny having any involuntary loss of bowel or bladder. No gross muscle atrophy, no edema, no contractures. Neuro: Speech clear, face symmetrical and CN II-XII grossly intact with no noted focal neuro deficits. Psych: Alert and oriented to person, place, time, and situation. Appropriate and pleasant affect. Assessment and Plan of Care: Increasing Left lower extremity weakness with inability to ambulate Increasing lower lumbar back pain with reports of new saddlebag anesthesias Lumbar spine stenosis -Orthospine surgery following and plan to reorder myelogram on Thursday in attempts to have completed followed by likely spinal surgery Thursday or Thursday. -Review documentation in chart, Upon initial evaluation by physical therapy on 09/30/22, was noted to have minimal ability to move left lower extremity and initially ambulated short steps with decreased weightbearing throughout left lower extremity and on day 2 (10/01/22) of evaluation by physical therapy patient was no longer able to ambulate only able to stand and pivot to transfer to chair. Discussed with RN and physical therapy staff on 10/02/22 and pt again unable to bear weight on left lower extremity and can only pivot to chair with use of walker and assistance by staff. -Continue with Symptomatic care and pain management with [place] 5/325 every 6 hours as needed for mild to moderate pain and morphine 4 mg IVP every 4 hours as needed for severe pain -Continue Decadron 4 mg IVP every 6 hours pending further recommendations from orthospine surgery team -Fall precautions -Consult PT/OT Imaging reviewed: -No new imaging available for review at this time, order placed for myelogram lumbar sacral spine and CT. Data review: -Vital signs reviewed and stable. Blood pressure 134/61, heart rate 64, respiratory rate 16, and SpO2 99% on room air. CODE STATUS: Full code DVT prophylaxis: Heparin Discussed with: Patient, orthopedic surgery BAT PERSON and RN Anticipated discharge date: Clinical course to determine, pending recommen dations for orthospine surgery team Anticipated discharge place: Home versus skilled rehab Patient was seen independently by Nurse Pracitioner. This document was prepared using [employer] dictation software. Please allow for errors in telecommunications facility examiner, while rare they do occur. Luis Gallagher NP rendered care for this patient independently, reviewed the findings and plan as documented in the note above. I did not physically speak with or examine the patient on this date. Objective - Vital Signs Vital signs: Vital Signs Temp 98.1 F 10/02/22 07:40 Pulse 56 L 10/02/22 07:40 Resp 16 10/02/22 07:40 BP 152/89 10/02/22 07:40 Pulse Ox 95 10/02/22 07:40 FiO2 Intake & Output 10/01/22 10/02/22 10/02/22 18:59 06:59 18:59 Intake Total 236 Output Total 400 Balance -164 Intake: Oral 236 Output: Urine 400 Other: Voiding Method Urinal # Voids 2 1 - Labs CBC & Chem 7: 10/03/22 07:02 10/03/22 07:02
[2022-10-02] MEDS: ATORVASTATIN 20 MG TAB PO SCH (19:55)
[2022-10-02] MEDS: polyethylene glycoL 3350 17 GM POWD.PACK PO SCH (19:55)
[2022-10-02] MEDS: LATANOPROST 0.005% OPHTH DROPS 2.5 ML BTL BOTH EYES SCH (19:57)
[2022-10-03] MEDS: DEXAMETHASONE SOD PHOSPHATE 4 MG/ML 1 ML VIAL IVP SCH ×4 (06:29→23:44)
[2022-10-03] MEDS: SYMBICORT 80-4.5 MCG INHALER INHALATION SCH ×2 (07:36→17:58)
--- NOTE | 2022-10-03 08:37 | P.PN ---
Subjective Progress Note Date: 10/03/22 Principal diagnosis: Fall with injury Left groin pain Low back pain Right lower extremity radiculopathy Patient seen and examined this morning. Patient is sitting upright in bed. Patient continues to have complaint of a dull ache lumbar pain that radiates into the right lower extremity associated with numbness. Patient continues to report he has a sharp pain in the left groin that radiates down the inner lateral left extremity to the left foot, without numbness or tingling. He also states the sharp pain is prominent into the left groin and shoot across to his right groin with increased activity. Patient states he does have increased range of motion in the bilateral lower extremities while resting in bed. He states his pain and numbness into the right lower extremity is increased with activity and when he is weightbearing. Patient demonstrated that he is able to stand at bedside without difficulty. He took approx 10 steps and he stated the numbness was increasing into the right leg and felt it was going to buckle. Patient was assisted back to bed. Encouraged patient to continue with bed exercises and to work with PT today. He denies any loss of bowel or bladder, or perineal numbness/tingling. He has been afebrile, denies nausea/vomiting, or chest pain. Objective - Vital Signs Vital signs: Vital Signs Temp 97.8 F 10/03/22 00:09 Pulse 62 10/03/22 00:09 Resp 12 10/03/22 00:09 BP 119/74 10/03/22 00:09 Pulse Ox 94 L 10/03/22 00:09 FiO2 Intake & Output 10/02/22 10/03/22 10/03/22 18:59 06:59 18:59 Intake Total 354 Output Total 1400 775 Balance -6732 -645 Intake: Oral 354 Output: Urine 1400 775 Other: Voiding Method Urinal # Voids 2 2 - Exam Inspection: Negative for any open fractures, ecchymosis, significant erythema/ulcers. Sensation: Sensation is equal, symmetric, bilaterally intact throughout the upper and left lower extremities, patient reports numbness to the right buttock and thigh Palpation: Nontender to palpation throughout bilateral upper and lower extremities and throughout spine exam Range of motion: Patient does have full range of motion bilateral upper and right lower extremities on exam, he does demonstrate limited left hip extension due to pain Motor: 5/5 in all major motor groups in the bilateral upper and lower extremities Special tests: Negative Homans bilaterally. Negative Boris bilaterally. Negative clonus bilaterally. Neurovascular: Radial pulse intact, 2+ bilaterally. Cap refill under 3 seconds in digits upper extremities. - Labs CBC & Chem 7: 09/30/22 06:05 09/30/22 06:05 Assessment and Plan Assessment: Lumbar spondylosis T11-L1, L3-L4 vacuum disc phenomenon Moderate/severe stenosis T11-T12, L2-L4 Fall with injury Bilateral lower extremity radiculopathy Plan: -Appreciate systems development consultant and team management. -Order for CT myelogram of the lumbar spine will be placed for Thursday10/06/22. -Possible surgical intervention on 10/07/22 -Activity: Ambulate QID, OOB all meals, up and about, limit lifting bending twisting to less than 5 lbs. Use walker or cane if needed for stability. -Pain control: Adequate at this time -Meds: reviewed -GI ppx: senna, Miralax -DVT PPX: Heparin -Encourage IS 10x/hr -Dispo: Clinically pending *I reviewed and discussed this case with my attending Dr. Richmond, whom has reviewed this chart and films and is in agreement with assessment and plan of care as outlined above. I have personally seen and examined the patient, performed the documentation and the assessment and plan as written. Number of minutes spent on the visit: 20m.
[2022-10-03 09:07] VITALS: BMI 40.7
[2022-10-03] MEDS: PANTOPRAZOLE 40 MG TABLET PO SCH (09:13)
[2022-10-03] MEDS: FUROSEMIDE 20 MG TAB PO SCH (09:13)
[2022-10-03] MEDS: CALCIUM CARBONATE 500 MG CHEWABLE PO SCH (09:13)
[2022-10-03] MEDS: bisacodyL 5 MG TABLET.DR PO SCH (09:14)
[2022-10-03] MEDS: HEPARIN SODIUM,PORCINE 5,000 UNIT/ML 1 ML VIAL SQ SCH ×3 (09:14→23:44)
[2022-10-03] MEDS: BRIMONIDINE TARTRATE 0.2% DROPS 5 ML BTL BOTH EYES SCH ×2 (09:14→21:28)
[2022-10-03 12:58] LABS: HCT 40.5 % (39.6-50.0); HGB 13.3 d/dL (13.0-17.0); MCH 30.5 pg (27.0-32.0); MCHC 32.8 d/dL (32.0-37.0); MCV 92.9 FL (80.0-97.0); Mean Platelet Volume 11.2 FL (9.5-12.2); NRBC Per 100 WBC 0 X 10*3/uL (0.00-0.01); Platelet Count 165 X 10*3/uL (140-440); RBC 4.36 X 10*6/uL (4.40-5.60); RDW 13.3 % (11.5-14.5); WBC 12.91 X 10*3/uL (4.50-10.00)
[2022-10-03 13:32] LABS: Magnesium 2.3 mg/dL (1.5-2.4)
[2022-10-03 13:48] LABS: ALT 43 U/L (10-49); AST 24 U/L (14-35); Albumin 3.8 d/dL (3.8-4.9); Albumin/Globulin Ratio 1.81 Ratio (1.60-3.17); Alkaline Phosphatase 65 U/L (41-126); BUN/Creat Ratio 31.38 Ratio (12.00-20.00); Blood Urea Nitrogen 25.1 mg/dL (9.0-27.0); Calcium 9.1 mg/dL (8.7-10.3); Carbon Dioxide 26.3 mmol/L (21.6-31.8); Chloride 103 mmol/L (96-109); Globulin 2.1 d/dL (1.6-3.3); Glucose 104 mg/dL (70-110); Potassium 4.7 mmol/L (3.5-5.5); Sodium 140 mmol/L (135-145); Total Bilirubin 0.3 mg/dL (0.3-1.2); Total Protein 5.9 d/dL (6.2-8.2)
--- NOTE | 2022-10-03 17:18 | P.PN ---
Subjective Progress Note Date: 10/03/22 Hospital course: Patient is a 73-year-old gentleman with a history of hypertension, dyslipidemia, GERD, asthma, and chronic right lower extremity are radiculopathies. He presented to the hospital on 09/28/22 secondary to uncontrolled pelvic/hip/groin pain after falling 10 feet off of flatter on 09/28/22. Upon arrival to the emergency department, patient underwent extensive evaluation. Labs were completed and reviewed. CBC remarkable for platelets 120 and BMP sodium 136, BUN 21, creatinine 0.55, glucose 108. CT abdomen and pelvis shows no suspicious renal or ureteral stones, normal appendix, and degenerative disc changes throughout the thoracic lumbar spine. Previous CT completed on 09/28/22 revealed moderate to severe multilevel disc degenerative changes of the spine worse at L3-L4 with moderate to severe neural foraminal stenosis bilaterally and severe spinal canal stenosis. Patient was unable to ambulate and therefore was admitted for pain control and evaluation by PT/OT. Upon initial evaluation by physical therapy, was noted to have minimal ability to move left lower extremity and initially ambulated short steps with decreased weightbearing throughout left lower extremity on day 2 of evaluation by physical therapy patient was no longer able to ambulate only able to stand and pivot to transfer to chair. Patient with increased pain in lower back, hip/groin, continued weakness and inability to lift/move left lower extremity and new reports of saddlebag anesthesias. Notified orthospine surgeon and per his recommendations, Placed order for urgent myelogram and CT. myelogram was unable to be completed. Patient was recommended for transfer to [facility] to undergo recommended testing and possible surgical intervention, but declined. Orthospine surgery following and plan to reorder myelogram on Thursday in attempts to have completed followed by likely spinal surgery Thursday Physical exam: Patient seen and fully evaluated at bedside this morning. Patient appears very joyful this morning. He reports he is having improved movement in his left lower extremity. Patient able to bend and lift leg this morning. Per nursing staff at bedside patient was even able to stand with assistance and took approximately 8-10 steps. Patient reports she is still having persistent numbness to bilateral inner thighs and mild pain to lower back at rest. He did report that with ambulation he experienced worsening lower back pain radiating into the groin and down entire left leg with numbness extending from inner thighs to groin and down the medial aspect of left leg. Patient reports right leg pain/numbness/tingling is chronic and unchanged at this time. Vital signs reviewed and stable. General: Nontoxic, no distress and appears stated age. Derm: Skin warm and dry, normal coloration for ethnicity. Head: Atraumatic, normocephalic and symmetric. Eyes: EOMs intact, no lid lag, and anicteric sclera Mouth: no lip lesions, mucus membranes moist Cardiovascular: regular rate and rhythm with normal S1S2, systolic murmur, positive posterior tibial pulses bilaterally, and cap refill < 2 seconds. Lungs: Respirations even, regular, and unlabored on room air. Lungs CTA bilaterally, no rhonchi, no rales, no wheezing, and no accessory muscle usage. Abdominal: soft, nontender to palpation, no guarding, no appreciable organomegaly Ext: Movement and sensation intact. Patient with left lower extremity noted to be significantly weaker than right lower extremity today. Patient reports increased pain when attempting to raise or move left lower extremity and now reporting new onset numbness to bilateral inner thighs/saddlebag anesthesias. He continues to deny having any involuntary loss of bowel or bladder. No gross muscle atrophy, no edema, no contractures. Neuro: Speech clear, face symmetrical and CN II-XII grossly intact with no noted focal neuro deficits. Psych: Alert and oriented to person, place, time, and situation. Appropriate and pleasant affect. Assessment and Plan of Care: Increasing Left lower extremity weakness with inability to ambulate Increasing lower lumbar back pain with reports of new saddlebag anesthesias Lumbar spine stenosis -Orthospine surgery following and plan to reorder myelogram on Thursday in attempts to have completed followed by likely spinal surgery Thursday. -PT/OT following -Continue with Symptomatic care and pain management with [place] 5/325 every 6 hours as needed for mild to moderate pain and morphine 4 mg IVP every 4 hours as needed for severe pain -Continue Decadron 4 mg IVP every 6 hours pending further recommendations from orthospine surgery team -Fall precautions -Consult PT/OT Imaging reviewed: -No new imaging available for review at this time, order placed for myelogram lumbar sacral spine and CT. Data review: -Vital signs reviewed and stable. Blood pressure 165/93, heart rate 54, respiratory rate 16, temp 97.6F and SpO2 of 97% on room air. -Morning labs reviewed. CBC revealing mild leukocytosis with a BBC count of 12.91 (reactive secondary to steroid use). BMP unremarkable. Liver profile unremarkable. CODE STATUS: Full code DVT prophylaxis: Heparin Discussed with: Patient, orthopedic surgery ENVIRONMENTAL MARKETING REPRESENTATIVE and RN Anticipated discharge date: Clinical course to determine, pending recommendations for orthospine surgery team Anticipated discharge place: Home versus skilled rehab Patient was seen independently by Nurse Pracitioner. This document was prepared using [employer] dictation software. Please allow for errors in crane service technician, while rare they do occur. Luis Gallagher NP rendered care for this patient independently, reviewed the findings and plan as documented in the note above. I did not physically speak with or examine the patient on this date. Objective - Vital Signs Vital signs: Vital Signs Temp 97.8 F 10/03/22 00:09 Pulse 62 10/03/22 00:09 Resp 12 10/03/22 00:09 BP 119/74 10/03/22 00:09 Pulse Ox 94 L 10/03/22 00:09 FiO2 Intake & Output 10/02/22 10/03/22 10/03/22 18:59 06:59 18:59 Intake Total 354 Output Total 1400 775 Balance -1046 -775 Weight 117.934 kg Intake: Oral 354 Output: Urine 1400 775 Other: Voiding Method Urinal # Voids 2 2 - Labs CBC & Chem 7: 10/03/22 07:02 10/03/22 07:02
[2022-10-03] MEDS ORDERED: diphenhydrAMINE 25 MG CAP PO PRN (18:01)
[2022-10-03] MEDS: SODIUM CHLORIDE 0.9% 1,000 ML IV SCH (20:15)
[2022-10-03] MEDS: LATANOPROST 0.005% OPHTH DROPS 2.5 ML BTL BOTH EYES SCH (21:27)
[2022-10-03] MEDS: polyethylene glycoL 3350 17 GM POWD.PACK PO SCH (23:33)
[2022-10-03] MEDS: ATORVASTATIN 20 MG TAB PO SCH (23:44)
[2022-10-04] MEDS: DEXAMETHASONE SOD PHOSPHATE 4 MG/ML 1 ML VIAL IVP SCH ×3 (06:11→17:35)
[2022-10-04] MEDS: SYMBICORT 80-4.5 MCG INHALER INHALATION SCH ×2 (07:24→19:16)
[2022-10-04] MEDS: PANTOPRAZOLE 40 MG TABLET PO SCH (09:08)
[2022-10-04] MEDS: BRIMONIDINE TARTRATE 0.2% DROPS 5 ML BTL BOTH EYES SCH ×2 (09:09→20:01)
[2022-10-04] MEDS: HEPARIN SODIUM,PORCINE 5,000 UNIT/ML 1 ML VIAL SQ SCH ×2 (09:09→17:35)
[2022-10-04] MEDS: FUROSEMIDE 20 MG TAB PO SCH (09:09)
[2022-10-04] MEDS: CALCIUM CARBONATE 500 MG CHEWABLE PO SCH (09:09)
[2022-10-04] MEDS: bisacodyL 5 MG TABLET.DR PO SCH (09:10)
--- NOTE | 2022-10-04 16:26 | P.PN ---
Subjective Progress Note Date: 10/04/22 Hospital course: Patient is a 73-year-old gentleman with a history of hypertension, dyslipidemia, GERD, asthma, and chronic right lower extremity are radiculopathies. He presented to the hospital on 09/28/22 secondary to uncontrolled pelvic/hip/groin pain after falling 10 feet off of flatter on 09/28/22. Upon arrival to the emergency department, patient underwent extensive evaluation. Labs were completed and reviewed. CBC remarkable for platelets 120 and BMP sodium 136, BUN 21, creatinine 0.55, glucose 108. CT abdomen and pelvis shows no suspicious renal or ureteral stones, normal appendix, and degenerative disc changes throughout the thoracic lumbar spine. Previous CT completed on 09/28/22 revealed moderate to severe multilevel disc degenerative changes of the spine worse at L3-L4 with moderate to severe neural foraminal stenosis bilaterally and severe spinal canal stenosis. Patient was unable to ambulate and therefore was admitted for pain control and evaluation by PT/OT. Upon initial evaluation by physical therapy, was noted to have minimal ability to move left lower extremity and initially ambulated short steps with decreased weightbearing throughout left lower extremity on day 2 of evaluation by physical therapy patient was no longer able to ambulate only able to stand and pivot to transfer to chair. Patient with increased pain in lower back, hip/groin, continued weakness and inability to lift/move left lower extremity and new reports of saddlebag anesthesias. Notified orthospine surgeon and per his recommendations, Placed order for urgent myelogram and CT. myelogram was unable to be completed. Patient was recommended for transfer to [facility] to undergo recommended testing and possible surgical intervention, but declined. Orthospine surgery following and plan to reorder myelogram on Thursday in attempts to have completed followed by likely spinal surgery Thursday Physical exam: Patient seen and fully evaluated at bedside this morning. Patient's condition stable at this time. Nursing staff report patient able to take approximately 5 steps prior to having increased pain to lower back shooting down into left groin and down left leg. Patient reports continued numbness to inner thighs bilaterally along with numbness to buttocks. He denies having any numbness in his groin. Patient denies numbness worsening with ambulation or movement but does report pain to the lower lumbar region of back significantly worsens with movement. Vital signs reviewed and stable. General: Nontoxic, no distress and appears stated age. Derm: Skin warm and dry, normal coloration for ethnicity. Head: Atraumatic, normocephalic and symmetric. Eyes: EOMs intact, no lid lag, and anicteric sclera Mouth: no lip lesions, mucus membranes moist Cardiovascular: regular rate and rhythm with normal S1S2, systolic murmur, positive posterior tibial pulses bilaterally, and cap refill < 2 seconds. Lungs: Respirations even, regular, and unlabored on room air. Lungs CTA bilaterally, no rhonchi, no rales, no wheezing, and no accessory muscle usage. Abdominal: soft, nontender to palpation, no guarding, no appreciable organomegaly Ext: Movement and sensation intact. Patient with left lower extremity noted to be slightly weaker than right lower extremity today. He continues to deny having any involuntary loss of bowel or bladder. He reports continued numbness to bilateral inner thighs and buttocks but denies numbness to groin. No gross muscle atrophy, no edema, no contractures. Neuro: Speech clear, face symmetrical and CN II-XII grossly intact with no noted focal neuro deficits. Psych: Alert and oriented to person, place, time, and situation. Appropriate and pleasant affect. Assessment and Plan of Care: Increasing Left lower extremity weakness with inability to ambulate Increasing lower lumbar back pain with reports of continued saddlebag anesthesias Lumbar spine stenosis -Orthospine surgery following and plan to reorder myelogram on Thursday in attempts to have completed followed by likely spinal surgery Thursday. -PT/OT following -Continue with Symptomatic care and pain management with [place] 5/325 every 6 hours as needed for mild to moderate pain and morphine 4 mg IVP every 4 hours as needed for severe pain -Continue Decadron 4 mg IVP every 6 hours pending further recommendations from orthospine surgery team -Fall precautions -Consult PT/OT Imaging reviewed: -No new imaging available for review at this time, order placed for repeat attempts at myelogram lumbar sacral spine and CT. Data review: -Vital signs reviewed. Blood pressure 178/47, heart rate 67, respiratory rate 16, temp 98.0F, SpO2 of 98% on room air.. CODE STATUS: Full code DVT prophylaxis: Heparin Discussed with: Patient and RN Anticipated discharge date: Clinical course to determine, pending recommendations for orthospine surgery team Anticipated discharge place: Home versus skilled rehab Patient was seen independently by Nurse Pracitioner. This document was prepared using [employer] dictation software. Please allow for errors in business line manager, while rare they do occur. Luis Gallagher RN OBGYN rendered care for this patient independently, reviewed the findings and plan as documented in the note above. I did not physically speak with or examine the patient on this date. Objective - Vital Signs Vital signs: Vital Signs Temp 97.7 F 10/04/22 07:00 Pulse 51 L 10/04/22 07:00 Resp 16 10/04/22 07:00 BP 123/78 10/04/22 07:00 Pulse Ox 97 10/04/22 07:00 FiO2 Intake & Output 10/03/22 10/04/22 10/04/22 18:59 06:59 18:59 Intake Total 1422 Output Total 2100 1275 Balance -678 -1275 Weight 117.934 kg Intake: Oral 1422 Output: Urine 2100 1275 Other: Voiding Method Urinal # Voids 2 1 # Bowel Movements 1 - Labs CBC & Chem 7: 10/06/22 06:02 10/06/22 06:02 Labs: Abnormal Lab Results - Last 24 Hours (Table) 10/03/22 10/03/22 Range/Units 07:02 07:02 WBC 12.91 H (4.50-10.00) X 10*3/uL RBC 4.36 L (4.40-5.60) X 10*6/uL BUN/Creatinine Ratio 31.38 H (12.00-20.00) Ratio Total Protein 5.9 L (6.2-8.2) d/dL
[2022-10-04] MEDS: polyethylene glycoL 3350 17 GM POWD.PACK PO SCH (20:01)
[2022-10-04] MEDS: ATORVASTATIN 20 MG TAB PO SCH (20:01)
[2022-10-04] MEDS: LATANOPROST 0.005% OPHTH DROPS 2.5 ML BTL BOTH EYES SCH (20:01)
[2022-10-04] MEDS: SODIUM CHLORIDE 0.9% 1,000 ML IV SCH (20:02)
[2022-10-05] MEDS: DEXAMETHASONE SOD PHOSPHATE 4 MG/ML 1 ML VIAL IVP SCH ×4 (00:30→18:01)
[2022-10-05] MEDS: HEPARIN SODIUM,PORCINE 5,000 UNIT/ML 1 ML VIAL SQ SCH ×3 (00:30→18:01)
[2022-10-05] MEDS: SYMBICORT 80-4.5 MCG INHALER INHALATION SCH ×2 (07:41→18:58)
[2022-10-05] MEDS: CALCIUM CARBONATE 500 MG CHEWABLE PO SCH (08:16)
[2022-10-05] MEDS: FUROSEMIDE 20 MG TAB PO SCH (08:16)
[2022-10-05] MEDS: bisacodyL 5 MG TABLET.DR PO SCH ×2 (08:17→08:21)
[2022-10-05] MEDS: PANTOPRAZOLE 40 MG TABLET PO SCH (08:17)
[2022-10-05] MEDS: BRIMONIDINE TARTRATE 0.2% DROPS 5 ML BTL BOTH EYES SCH ×2 (08:17→19:47)
--- NOTE | 2022-10-05 18:03 | P.PN ---
Subjective Progress Note Date: 10/05/22 Hospital course: Patient is a 73-year-old gentleman with a history of hypertension, dyslipidemia, GERD, asthma, and chronic right lower extremity are radiculopathies. He presented to the hospital on 09/28/22 secondary to uncontrolled pelvic/hip/groin pain after falling 10 feet off of flatter on 09/28/22. Upon arrival to the emergency department, patient underwent extensive evaluation. Labs were completed and reviewed. CBC remarkable for platelets 120 and BMP sodium 136, BUN 21, creatinine 0.55, glucose 108. CT abdomen and pelvis shows no suspicious renal or ureteral stones, normal appendix, and degenerative disc changes throughout the thoracic lumbar spine. Previous CT completed on 09/28/22 revealed moderate to severe multilevel disc degenerative changes of the spine worse at L3-L4 with moderate to severe neural foraminal stenosis bilaterally and severe spinal canal stenosis. Patient was unable to ambulate and therefore was admitted for pain control and evaluation by PT/OT. Upon initial evaluation by physical therapy, was noted to have minimal ability to move left lower extremity and initially ambulated short steps with decreased weightbearing throughout left lower extremity on day 2 of evaluation by physical therapy patient was no longer able to ambulate only able to stand and pivot to transfer to chair. Patient with increased pain in lower back, hip/groin, continued weakness and inability to lift/move left lower extremity and new reports of saddlebag anesthesias. Notified orthospine surgeon and per his recommendations, Placed order for urgent myelogram and CT. myelogram was unable to be completed. Patient was recommended for transfer to [facility] to undergo recommended testing and possible surgical intervention, but declined. Orthospine surgery following and plan to reorder myelogram on Thursday in attempts to have completed followed by likely spinal surgery Thursday Physical exam: Patient seen and fully evaluated at bedside this morning. Patient's condition stable at this time. Pt reports resolution of numbness to bilateral inner thighs but reports continued numbness of left buttocks. Patient does have noted increased strength and movement of left lower extremity and was able to ambulate to the shower and take a shower today. He continues to report pain to lower lum bar spine in the groin radiating down left leg with ambulation reports today it is a "10 and yesterday it was more like a 15 out of 10" Vital signs reviewed and stable. General: Nontoxic, no distress and appears stated age. Derm: Skin warm and dry, normal coloration for ethnicity. Head: Atraumatic, normocephalic and symmetric. Eyes: EOMs intact, no lid lag, and anicteric sclera Mouth: no lip lesions, mucus membranes moist Cardiovascular: regular rate and rhythm with normal S1S2, systolic murmur, positive posterior tibial pulses bilaterally, and cap refill < 2 seconds. Lungs: Respirations even, regular, and unlabored on room air. Lungs CTA bilaterally, no rhonchi, no rales, no wheezing, and no accessory muscle usage. Abdominal: soft, nontender to palpation, no guarding, no appreciable organomegaly Ext: Movement and sensation intact. Patient with left lower extremity noted to be slightly weaker than right lower extremity today. He continues to deny having any involuntary loss of bowel or bladder. He reports continued numbness to bilateral inner thighs and buttocks but denies numbness to groin. No gross muscle atrophy, no edema, no contractures. Neuro: Speech clear, face symmetrical and CN II-XII grossly intact with no noted focal neuro deficits. Psych: Alert and oriented to person, place, time, and situation. Appropriate and pleasant affect. Assessment and Plan of Care: Increasing Left lower extremity weakness with inability to ambulate Increasing lower lumbar back pain with reports of continued saddlebag anesthesias Lumbar spine stenosis -Orthospine surgery following and plan to reorder myelogram on Thursday in attempts to have completed followed by likely spinal surgery Thursday. -PT/OT following -Continue with Symptomatic care and pain management with [place] 5/325 every 6 hours as needed for mild to moderate pain and morphine 4 mg IVP every 4 hours as needed for severe pain -Continue Decadron 4 mg IVP every 6 hours pending further recommendations from orthospine surgery team -Fall precautions -Consult PT/OT Imaging reviewed: -No new imaging available for review at this time, order placed for repeat attempts at myelogram lumbar sacral spine and CT. Data review: -Vital signs reviewed. 146/87, heart rate 51, respiratory rate 16, temp 97.5F, and SpO2 of 96% on room air. CODE STATUS: Full code DVT prophylaxis: Heparin Discussed with: Patient and RN Anticipated discharge date: Clinical course to determine, pending recommendations for orthospine surgery team Anticipated discharge place: Home versus skilled rehab Patient was seen independently by Nurse Pracitioner. This document was prepared using [employer] dictation software. Please allow for errors in epic stork specialists, while rare they do occur. I reviewed the documentation as provided by the ARNIE above, who is the original author of this note. I agree with the documented assessment and plan, with the following changes: none Objective - Vital Signs Vital signs: Vital Signs Temp 97.5 F L 10/05/22 07:45 Pulse 51 L 10/05/22 07:45 Resp 16 10/05/22 07:45 BP 146/87 10/05/22 07:45 Pulse Ox 96 10/05/22 07:45 FiO2 Intake & Output 10/04/22 10/05/22 10/05/22 18:59 06:59 18:59 Intake Total 1300 Output Total 1500 Balance 1300 -1500 Intake: Oral 1300 Output: Urine 1500 Other: Voiding Method Urinal # Voids 3 0 - Labs CBC & Chem 7: 10/06/22 06:02 10/06/22 06:02
[2022-10-05] MEDS: polyethylene glycoL 3350 17 GM POWD.PACK PO SCH (19:47)
[2022-10-05] MEDS: LATANOPROST 0.005% OPHTH DROPS 2.5 ML BTL BOTH EYES SCH (19:47)
[2022-10-05] MEDS: ATORVASTATIN 20 MG TAB PO SCH (19:48)
[2022-10-06] MEDS: DEXAMETHASONE SOD PHOSPHATE 4 MG/ML 1 ML VIAL IVP SCH ×5 (01:25→21:16)
[2022-10-06] MEDS: HEPARIN SODIUM,PORCINE 5,000 UNIT/ML 1 ML VIAL SQ SCH ×4 (01:26→21:20)
[2022-10-06] MEDS: SODIUM CHLORIDE 0.9% 1,000 ML IV SCH ×2 (01:27→21:17)
[2022-10-06 08:25] LABS: HCT 44.9 % (39.6-50.0); HGB 15.2 d/dL (13.0-17.0); MCH 30.6 pg (27.0-32.0); MCHC 33.9 d/dL (32.0-37.0); MCV 90.3 FL (80.0-97.0); Mean Platelet Volume 11.1 FL (9.5-12.2); NRBC Per 100 WBC 0 X 10*3/uL (0.00-0.01); Platelet Count 207 X 10*3/uL (140-440); RBC 4.97 X 10*6/uL (4.40-5.60); RDW 13.2 % (11.5-14.5); WBC 14.08 X 10*3/uL (4.50-10.00)
[2022-10-06] MEDS: SYMBICORT 80-4.5 MCG INHALER INHALATION SCH ×2 (08:30→19:47)
[2022-10-06 08:34] LABS: ALT 36 U/L (10-49); AST 14 U/L (14-35); Albumin 3.9 d/dL (3.8-4.9); Albumin/Globulin Ratio 1.95 Ratio (1.60-3.17); Alkaline Phosphatase 72 U/L (41-126); BUN/Creat Ratio 27.62 Ratio (12.00-20.00); Blood Urea Nitrogen 22.1 mg/dL (9.0-27.0); Calcium 9.1 mg/dL (8.7-10.3); Carbon Dioxide 27.8 mmol/L (21.6-31.8); Chloride 102 mmol/L (96-109); Glucose 107 mg/dL (70-110); Magnesium 2.5 mg/dL (1.5-2.4); Potassium 4.8 mmol/L (3.5-5.5); Sodium 139 mmol/L (135-145); Total Bilirubin 0.4 mg/dL (0.3-1.2); Total Protein 5.9 d/dL (6.2-8.2)
[2022-10-06 09:51] VITALS: RESP 16
--- NOTE | 2022-10-06 16:36 | CT ---
EXAMINATION TYPE: CT lumbar spine w con CT DLP: 1093.2 mGycm, Automated exposure control for dose reduction was used. DATE OF EXAM: 10/06/2022 8:44 AM COMPARISON: . CLINICAL INDICATION:Male, 72 years old with history of Low back pain/ BLE radiculopathy; PHH, pain, B LE radiculopathy TECHNIQUE: Multiple axial images were obtained from the midportion of T11 through the sacroiliac xochitl nts. Soft tissue and bone windows in coronal and sagittal planes were obtained and reviewed. 3-D ref ormats of the bones were created on a separate workstation and submitted for review. Contrast used:100 mL of Isovue 300 with IV Contrast, none. Oral contrast used: none. FINDINGS: Alignment: There are 5 lumbar type vertebral bodies within normal alignment. Bone: No evidence of fracture is identified. Multilevel degeneration changes with osteophyte formati on and vacuum disc phenomenon and Schmorl's nodes. Discs: T12-L1: No spinal canal or neural foraminal stenosis is identified. L1-L2: Facet joint arthropathy and disc bulging result with mild spinal canal stenosis and moderate t o severe bilateral neural foraminal stenosis. L2-L3: Facet joint arthropathy and disc bulging result with mild spinal canal stenosis and mild to mo derate bilateral neural foraminal stenosis. L3-L4: Facet joint arthropathy and disc bulging result with moderate to severe spinal canal stenosis and moderate bilateral neural foraminal stenosis. L4-L5: Facet joint arthropathy and disc bulging result with moderate to severe spinal canal stenosis and mild to moderate bilateral neural foraminal stenosis. L5-S1: Facet joint arthropathy and disc bulging result without significant spinal canal stenosis or n eural foraminal stenosis. Other: None IMPRESSION: 1. No evidence for spinal fracture. 2. L3-L4 and L4-L5 disc bulge and facet joint arthropathy with moderate to severe spinal canal stenos is. 3. Degeneration changes worse at L1-L2 with moderate to severe bilateral neural foraminal stenosis. A dditional very degrees of neural foraminal stenosis throughout the spine.
[2022-10-06] MEDS: BRIMONIDINE TARTRATE 0.2% DROPS 5 ML BTL BOTH EYES SCH ×2 (17:05→21:16)
[2022-10-06] MEDS: PANTOPRAZOLE 40 MG TABLET PO SCH (17:09)
[2022-10-06] MEDS: bisacodyL 5 MG TABLET.DR PO SCH (17:09)
[2022-10-06] MEDS: CALCIUM CARBONATE 500 MG CHEWABLE PO SCH (17:10)
[2022-10-06] MEDS: FUROSEMIDE 20 MG TAB PO SCH (17:13)
--- NOTE | 2022-10-06 18:10 | P.PN ---
Subjective Progress Note Date: 10/06/22 Hospital course: Patient is a 73-year-old gentleman with a history of hypertension, dyslipidemia, GERD, asthma, and chronic right lower extremity are radiculopathies. He presented to the hospital on 09/28/22 secondary to uncontrolled pelvic/hip/groin pain after falling 10 feet off of flatter on 09/28/22. Upon arrival to the emergency department, patient underwent extensive evaluation. Labs were completed and reviewed. CBC remarkable for platelets 120 and BMP sodium 136, BUN 21, creatinine 0.55, glucose 108. CT abdomen and pelvis shows no suspicious renal or ureteral stones, normal appendix, and degenerative disc changes throughout the thoracic lumbar spine. Previous CT completed on 09/28/22 revealed moderate to severe multilevel disc degenerative changes of the spine worse at L3-L4 with moderate to severe neural foraminal stenosis bilaterally and severe spinal canal stenosis. Patient was unable to ambulate and therefore was admitted for pain control and evaluation by PT/OT. Upon initial evaluation by physical therapy, was noted to have minimal ability to move left lower extremity and initially ambulated short steps with decreased weightbearing throughout left lower extremity on day 2 of evaluation by physical therapy patient was no longer able to ambulate only able to stand and pivot to transfer to chair. Patient with increased pain in lower back, hip/groin, continued weakness and inability to lift/move left lower extremity and new reports of saddlebag anesthesias. Notified orthospine surgeon and per his recommendations, Placed order for urgent myelogram and CT. myelogram was unable to be completed. Patient was recommended for transfer to [facility] to undergo recommended testing and possible surgical intervention, but declined. Orthospine surgery following. Patient is scheduled to undergo myelogram later today. Physical exam: Patient seen and fully evaluated at bedside this morning. Patient's condition stable at this time. He continues to have full resolution of previously reported numbness to bilateral inner thighs but reports continued numbness of left buttocks only. He continues to report pain to lower lumbar spine, left groin radiating down left leg only minimal with rest and continues to report 10 out of 10 pain with ambulation. Again patient reports chronic pain, numbness, and tingling in right lower extremity unchanged. RN reports patient to go down for myelogram later today at 12 PM. Vital signs reviewed and stable. General: Nontoxic, no distress and appears stated age. Derm: Skin warm and dry, normal coloration for ethnicity. Head: Atraumatic, normocephalic and symmetric. Eyes: EOMs intact, no lid lag, and anicteric sclera Mouth: no lip lesions, mucus membranes moist Cardiovascular: regular rate and rhythm with normal S1S2, systolic murmur, positive posterior tibial pulses bilaterally, and cap refill < 2 seconds. Lungs: Respirations even, regular, and unlabored on room air. Lungs CTA bilaterally, no rhonchi, no rales, no wheezing, and no accessory muscle usage. Abdominal: soft, nontender to palpation, no guarding, no appreciable organomegaly Ext: Movement and sensation intact. Patient with left lower extremity noted to be slightly weaker than right lower extremity today. He continues to deny having any involuntary loss of bowel or bladder. He reports continued numbness to bilateral inner thighs and buttocks but denies numbness to groin. No gross muscle atrophy, no edema, no contractures. Neuro: Speech clear, face symmetrical and CN II-XII grossly intact with no noted focal neuro deficits. Psych: Alert and oriented to person, place, time, and situation. Appropriate and pleasant affect. Assessment and Plan of Care: Increasing Left lower extremity weakness with inability to ambulate Increasing lower lumbar back pain with reports of continued saddlebag anesthesias Lumbar spine stenosis -Orthospine surgery following and pt to undergo myelogram today followed by likely spinal surgery on Thursday. -PT/OT following -Continue with Symptomatic care and pain management with [place] 5/325 every 6 hours as needed for mild to moderate pain and morphine 4 mg IVP every 4 hours as needed for severe pain -Continue Decadron 4 mg IVP every 6 hours pending further recommendations from orthospine surgery team -Fall precautions -Consult PT/OT Imaging reviewed: -No new imaging available for review at this time, patient scheduled to undergo myelogram lumbar sacral spine and CT later today at 12 PM. Data review: -Vital signs reviewed. Blood pressure 143/87, heart rate 54, respiratory rate 16, temp 97.8F, SpO2 of 96% on room air. CODE STATUS: Full code DVT prophylaxis: Heparin Discussed with: Patient, orthopedic surgeon and RN Anticipated discharge date: Clinical course to determine, pending recommendations for orthospine surgery team Anticipated discharge place: Home versus skilled rehab Patient was seen independently by Nurse Pracitioner. This document was prepared using [employer] dictation software. Please allow for errors in land acquisition manager, while rare they do occur. I reviewed the documentation as provided by the ARNIE above, who is the original author of this note. I agree with the documented assessment and plan, with the following changes: none Objective - Vital Signs Vital signs: Vital Signs Temp 98 F 10/06/22 02:40 Pulse 64 10/06/22 02:40 Resp 13 10/06/22 02:40 BP 117/68 10/06/22 02:40 Pulse Ox 97 10/06/22 02:40 FiO2 Intake & Output 10/05/22 10/06/22 10/06/22 18:59 06:59 18:59 Intake Total 1422 Output Total 1900 1400 Balance -478 -1400 Intake: Oral 1422 Output: Urine 1900 1400 Other: Voiding Method Urinal - Labs CBC & Chem 7: 10/06/22 06:02 10/06/22 06:02 Labs: Abnormal Lab Results - Last 24 Hours (Table) 10/06/22 10/06/22 Range/Units 06:02 06:02 WBC 14.08 H (4.50-10.00) X 10*3/uL BUN/Creatinine Ratio 27.62 H (12.00-20.00) Ratio Magnesium 2.5 H (1.5-2.4) mg/dL Total Protein 5.9 L (6.2-8.2) d/dL
[2022-10-06] MEDS: ATORVASTATIN 20 MG TAB PO SCH (21:15)
[2022-10-06] MEDS: polyethylene glycoL 3350 17 GM POWD.PACK PO SCH (21:16)
[2022-10-06] MEDS: LATANOPROST 0.005% OPHTH DROPS 2.5 ML BTL BOTH EYES SCH (21:16)
[2022-10-07] MEDS: DEXAMETHASONE SOD PHOSPHATE 4 MG/ML 1 ML VIAL IVP SCH (06:36)
[2022-10-07 07:41] VITALS: BP 131/72; PULSE 45; TEMP 97.6
--- NOTE | 2022-10-07 08:34 | P.PN ---
Subjective Progress Note Date: 10/07/22 Principal diagnosis: Fall with injury Left groin pain Low back pain Right lower extremity radiculopathy Patient seen and examined this morning. Patient is resting comfortably in bed. Patient continues to have complaint of a dull ache lumbar pain that radiates into the right lower extremity associated with numbness. Patient continues to report he has a sharp pain in the left groin that radiates down the inner lateral left extremity to the left foot, without numbness or tingling. He also states the sharp pain is prominent into the left groin and shoot across to his r ight groin with increased activity. He states his pain and numbness into the right lower extremity is increased with activity and when he is weightbearing. Patient states he has been ambulating to restroom. His symptoms are relieved with rest, they increase with activity and ambulation. Informed patient that we would like him to follow up outpatient for further testing and we will discuss further surgical options. Patient verbalizes understanding. He denies any loss of bowel or bladder, or perineal numbness/tingling. He has been afebrile, denies nausea/vomiting, or chest pain. Objective - Vital Signs Vital signs: Vital Signs Temp 97.6 F 10/07/22 07:37 Pulse 45 L 10/07/22 07:37 Resp 16 10/07/22 07:37 BP 131/72 10/07/22 07:37 Pulse Ox 97 10/07/22 07:37 FiO2 Intake & Output 10/06/22 10/07/22 10/07/22 18:59 06:59 18:59 Output Total 275 250 Balance -275 -250 Output: Urine 275 250 Other: Voiding Method Urinal Urinal - Exam Inspection: Negative for any open fractures, ecchymosis, significant erythema/ulcers. Sensation: Sensation is equal, symmetric, bilaterally intact throughout the upper and left lower extremities, patient reports numbness to the right buttock and thigh Palpation: Nontender to palpation throughout bilateral upper and lower extremities and throughout spine exam Range of motion: Patient does have full range of motion bilateral upper and right lower extremities on exam, he does demonstrate limited left hip extension due to pain Motor: 5/5 in all major motor groups in the bilateral upper and lower extremities Special tests: Negative Homans bilaterally. Negative Boris bilaterally. Negative clonus bilaterally. Neurovascular: Radial pulse intact, 2+ bilaterally. Cap refill under 3 seconds in digits upper extremities. - Labs CBC & Chem 7: 10/06/22 06:02 10/06/22 06:02 Labs: Abnormal Lab Results - Last 24 Hours (Table) 10/06/22 10/06/22 Range/Units 06:02 06:02 WBC 14.08 H (4.50-10.00) X 10*3/uL BUN/Creatinine Ratio 27.62 H (12.00-20.00) Ratio Magnesium 2.5 H (1.5-2.4) mg/dL Total Protein 5.9 L (6.2-8.2) d/dL Assessment and Plan Assessment: Lumbar spondylosis T11-L1, L3-L4 vacuum disc phenomenon Moderate/severe stenosis T11-T12, L2-L4 Fall with injury Bilateral lower extremity radiculopathy Plan: -Appreciate proposal consultant and team management. -Activity: Ambulate QID, OOB all meals, up and about, limit lifting bending twisting to less than 5 lbs. Use walker or cane if needed for stability. -Pain control: Adequate at this time -Meds: reviewed -GI ppx: senna, Miralax -DVT PPX: Heparin -Encourage IS 10x/hr -Dispo: Patient is cleared from Orthopedic standpoint for discharge and follow up in office 1-2 days. *I reviewed and discussed this case with my attending Dr. Richmond, whom has reviewed this chart and films and is in agreement with assessment and plan of care as outlined above. I have personally seen and examined the patient, performed the documentation and the assessment and plan as written. Number of minutes spent on the visit: 20m.
[2022-10-07] MEDS: SYMBICORT 80-4.5 MCG INHALER INHALATION SCH (08:37)
[2022-10-07] MEDS: PANTOPRAZOLE 40 MG TABLET PO SCH (09:47)
[2022-10-07] MEDS: CALCIUM CARBONATE 500 MG CHEWABLE PO SCH (09:47)
[2022-10-07] MEDS: bisacodyL 5 MG TABLET.DR PO SCH (09:47)
[2022-10-07] MEDS: FUROSEMIDE 20 MG TAB PO SCH (09:47)
[2022-10-07] MEDS: HEPARIN SODIUM,PORCINE 5,000 UNIT/ML 1 ML VIAL SQ SCH (09:48)
[2022-10-07] MEDS: BRIMONIDINE TARTRATE 0.2% DROPS 5 ML BTL BOTH EYES SCH (09:49)
--- NOTE | 2022-10-07 19:01 | P.DS ---
Providers Date of admission: 09/28/22 19:37 Expected date of discharge: 10/07/22 Attending physician: Berenice Hidalgo DO Consults: 09/29/22 09:16 Consult Physician Routine Consulting Provider: Kg Richmond Consult Reason/Comments: Back pain with radiculopathy Do you want consulting provider notified?: Yes Primary care physician: [facility] Hospital Course: Discharge Diagnosis: Increasing Left lower extremity weakness with inability to ambulate. Patient treated conservatively with pain medication and steroids. Patient did show improvement and able to ambulate with walker. Patient reports only numbness to left buttocks upon discharge. Patient is cleared by orthospine surgery for discharge and outpatient follow-up in our office for further discussion and scheduling of orthospine surgery. Increasing lower lumbar back pain with reports of continued saddlebag anesthesias Lumbar spine stenosis Hospital Course: Patient is a 73-year-old gentleman with a history of hypertension, dyslipidemia, GERD, asthma, and chronic right lower extremity are radiculopathies. He pre sented to the hospital on 09/28/22 secondary to uncontrolled pelvic/hip/groin pain after falling 10 feet off of flatter on 09/28/22. Upon arrival to the emergency department, patient underwent extensive evaluation. Labs were completed and reviewed. CBC remarkable for platelets 120 and BMP sodium 136, BUN 21, creatinine 0.55, glucose 108. CT abdomen and pelvis shows no suspicious renal or ureteral stones, normal appendix, and degenerative disc changes throughout the thoracic lumbar spine. Previous CT completed on 09/28/22 revealed moderate to severe multilevel disc degenerative changes of the spine worse at L3-L4 with moderate to severe neural foraminal stenosis bilaterally and severe spinal canal stenosis. Patient was unable to ambulate and therefore was admitted for pain control and evaluation by PT/OT. Upon initial evaluation by physical therapy, was noted to have minimal ability to move left lower extremity and initially ambulated short steps with decreased weightbearing throughout left lower extremity on day 2 of evaluation by physical therapy patient was no longer able to ambulate only able to stand and pivot to transfer to chair. Patient with increased pain in lower back, hip/groin, continued weakness and inability to lift/move left lower extremity and new reports of saddlebag anesthesias. Notified orthospine surgeon and per his recommendations, Placed order for urgent myelogram and CT. myelogram was unable to be completed. Patient was recommended for transfer to [facility] to undergo recommended testing and possible surgical intervention, but declined. Orthospine surgery following. Myelogram was unsuccessful [address] lumbar spine with contrast was completed showing no evidence for spinal fracture showing L3 through L4 and L4 through L5 disc bulge and facet joint arthropathy with moderate to severe spinal canal stenosis and degeneration changes worse at L1-L2 with moderate to severe bilateral neural no foraminal stenosis with additional dairy degrees of neural foraminal stenosis throughout the spine. Patient did have mild improvement with treatment of steroids. Numbness nearly fully resolved only remaining to left buttocks. Patient has been ambulating with walker to and from restroom which is significant improvement from admission. Orthospine surgeon recommending discharge at this time stating patient to be discharged home on Medrol Dosepak and follow up outpatient in his office for further discussion and scheduling of lumbar surgery. Medically, patient is stable at this time. Patient discharged home with home care along with walker. Patient to follow up outpatient with PCP in 1-2 days and orthospine surgery in 2 days. Physical exam: Vital signs reviewed and stable. General: Nontoxic, no distress and appears stated age. Derm: Skin warm and dry, normal coloration for ethnicity. Head: Atraumatic, normocephalic and symmetric. Eyes: EOMs intact, no lid lag, and anicteric sclera Mouth: no lip lesions, mucus membranes moist Cardiovascular: regular rate and rhythm with normal S1S2, systolic murmur, positive posterior tibial pulses bilaterally, and cap refill < 2 seconds. Lungs: Respirations even, regular, and unlabored on room air. Lungs CTA bilaterally, no rhonchi, no rales, no wheezing, and no accessory muscle usage. Abdominal: soft, nontender to palpation, no guarding, no appreciable organomegaly Ext: Movement and sensation intact. Patient with left lower extremity noted to be slightly weaker than right lower extremity today. He continues to deny having any involuntary loss of bowel or bladder. He reports continued numbness to bilateral inner thighs and buttocks but denies numbness to groin. No gross muscle atrophy, no edema, no contractures. Neuro: Speech clear, face symmetrical and CN II-XII grossly intact with no noted focal neuro deficits. Psych: Alert and oriented to person, place, time, and situation. Appropriate and pleasant affect. A total of 31 minutes of time were spent preparing this complex discharge summary. Pt was discharged on 10/07/22 at 9:44 AM. Patient was seen independently by Nurse Practitioner. This document was prepared using [employer] dictation software. Please allow for errors in ceramic coater machine while rare they do occur. I reviewed the documentation as provided by the ARNIE above, who is the original author of this note. I agree with the documented assessment and plan, with the following changes: none Patient Condition at Discharge: Stable Plan - Discharge Summary Discharge Rx Participant: No New Discharge Prescriptions: New methylPREDNISolone Dose Pack [Medrol Dose Pack] 4 mg PO DIRECTED #21 tab HYDROcodone/APAP 5-325MG [[place] 5-325] 1 - 2 tab PO Q6HR PRN #42 tab PRN Reason: Pain Continue Potassium Chloride 10 meq PO DAILY Naproxen Sodium [Aleve] 220 mg PO BID PRN PRN Reason: Pain Fluticasone Nasal [place] [Flonase Nasal [place]] 1 spray EA NOSTRIL DAILY Carboxymethylcellulose Sodium [Refresh Tears] 1 drop BOTH EYES BID PRN PRN Reason: dry eyes Vit C/E/Zn/Coppr/Lutein/Zeaxan [Preservision Areds 2 Chew Tab] 1 tab PO BID Omeprazole 20 mg PO DAILY Furosemide [Lasix] 20 mg PO DAILY polyethylene glycoL 3350 [Miralax] 17 gm PO DAILY PRN PRN Reason: Constipation Brimonidine Tartrate [Alphagan P 0.2% Ophth Soln] 1 drop BOTH EYES BID Simvastatin [Zocor] 40 mg PO HS Latanoprost/Pf [Latanoprost 0.005% Eye Drop] 1 drop BOTH EYES HS Fluticasone Propion/Salmeterol [[place]ixela 100-50 Inhub] 1 puff INHALATION RT-BID Ketotifen 0.025% Ophth Soln [Zaditor] 1 drop BOTH EYES BID PRN PRN Reason: allergies Cholecalciferol [Vitamin D3 (10 Mcg = 400 Iu)] 10 mcg PO DAILY Calcium Carbonate 1.25 Gm Tab 1.25 gm PO DAILY Discharge Medication List Carboxymethylcellulose Sodium [Refresh Tears] 1 drop BOTH EYES BID PRN 07/12/21 [History] Fluticasone Nasal [place] [Flonase Nasal [place]] 1 spray EA NOSTRIL DAILY 07/12/21 [History] Fluticasone Propion/Salmeterol [[place]ixela 100-50 Inhub] 1 puff INHALATION RT-BID 07/12/21 [History] Furosemide [Lasix] 20 mg PO DAILY 07/12/21 [History] Latanoprost/Pf [Latanoprost 0.005% Eye Drop] 1 drop BOTH EYES HS 07/12/21 [History] Naproxen Sodium [Aleve] 220 mg PO BID PRN 07/12/21 [History] Omeprazole 20 mg PO DAILY 07/12/21 [History] Potassium Chloride 10 meq PO DAILY 07/12/21 [History] Vit C/E/Zn/Coppr/Lutein/Zeaxan [Preservision Areds 2 Chew Tab] 1 tab PO BID 07/12/21 [History] Brimonidine Tartrate [Alphagan P 0.2% Ophth Soln] 1 drop BOTH EYES BID 09/28/22 [History] Calcium Carbonate 1.25 Gm Tab 1.25 gm PO DAILY 09/28/22 [History] Cholecalciferol [Vitamin D3 (10 Mcg = 400 Iu)] 10 mcg PO DAILY 09/28/22 [History] Ketotifen 0.025% Ophth Soln [Zaditor] 1 drop BOTH EYES BID PRN 09/28/22 [History] Simvastatin [Zocor] 40 mg PO HS 09/28/22 [History] polyethylene glycoL 3350 [Miralax] 17 gm PO DAILY PRN 09/28/22 [History] HYDROcodone/APAP 5-325MG [[place] 5-325] 1 - 2 tab PO Q6HR PRN #42 tab 10/07/22 [Rx] methylPREDNISolone Dose Pack [Medrol Dose Pack] 4 mg PO DIRECTED #21 tab 10/07/22 [Rx] Follow up Appointment(s)/Referral(s): [facility] [NON-STAFF] - 1 Week Bridget Ruvalcaba NPC [Nurse Practitioner] - 1-2 Days [facility] [Primary Care Provider] - 1-2 days Activity/Diet/Wound Care/Special Instructions: Activity: As tolerated. Take breaks as needed. Diet: Heart healthy and carb consistent diet. Avoid salts, or foods with hidden salts such as canned or boxed foods and frozen dinners. Extra salt makes your heart work harder and traps the fluid in your body for longer. Special Instructions: Take all of your medications as directed and remember to keep all of your doctor's appointments and follow-up as needed. Again, I would like to thank you for your service, it is always an honor to be able to provide care for a !!!!! Thank you for allowing us to participate in your care, it was truly a pleasure having you for our patient!!! Julieta RI P: [phone] F: [phone] Limit lifting, bending, twisting to less than 5lb. Use walker or cane for stability. Discharge Disposition: HOME WITH HOME HEALTH SERVICES
== END 2022-10-07 14:15 | disposition home health service (06) | DRG 552 ==
LOC: EC 16:21 → OBSVTOIN 19:37 → 6NMEDSUR 19:37
PROVIDERS: ADMIT Internal Medicine; ATTEND Internal Medicine
DX: M51.16 Intervertebral disc disorders with radiculopathy, lumbar region (principal); M47.26 Other spondylosis with radiculopathy, lumbar region; I10 Essential (primary) hypertension; E78.5 Hyperlipidemia, unspecified; K59.09 Other constipation; J45.909 Unspecified asthma, uncomplicated; K21.9 Gastro-esophageal reflux disease without esophagitis; M48.061 Spinal stenosis, lumbar region without neurogenic claudication; W11.XXXA Fall on and from ladder, initial encounter; Z96.612 Presence of left artificial shoulder joint; Z96.611 Presence of right artificial shoulder joint; Z79.899 Other long term (current) drug therapy
CPT/HCPCS: 36415; 62304; 72132; 73502; 74176; 80048; 80053; 81003; 83735; 85025; 85027; 86850; 86900; 86901; 94640; 96361; 96374; 99285

== ENCOUNTER 2022-10-16 21:47 | Emergency (ER) | payer OTHER, MEDICARE ==
--- NOTE | 2022-10-16 23:39 | ED ---
General Adult HPI - General Chief complaint: Extremity Problem,Nontraumatic Stated complaint: Swelling in legs Time Seen by Provider: 10/16/22 22:57 Source: patient, RN notes reviewed Mode of arrival: wheelchair Limitations: no limitations - History of Present Illness Initial comments: 72-year-old male with no significant past medical history presents to the emergency department with a chief complaint of bilateral lower extremity edema. Patient reports that he had an outpatient procedure of a myelogram performed on his lower back earlier today at [facility]. Reports that he got home and then he had worsening swelling in his legs and feet. He reports that he is short of breath however this is chronic in nature. He does take 20 mg of Lasix in the morning. Denies injury or trauma. Denies anticoagulant use. He fever, chills, cough with dyspnea, chest pain, palpitations - Related Data Home Medications Medication Instructions Recorded Confirmed Carboxymethylcellulose Sodium 1 drop BOTH EYES BID PRN 07/12/21 09/28/22 [Refresh Tears] Fluticasone Nasal [place] [Flonase 1 spray EA NOSTRIL DAILY 07/12/21 09/28/22 Nasal [place]] Fluticasone Propion/Salmeterol 1 puff INHALATION RT-BID 07/12/21 09/28/22 [Wixela 100-50 Inhub] Furosemide [Lasix] 20 mg PO DAILY 07/12/21 09/28/22 Latanoprost/Pf [Latanoprost 0.005% 1 drop BOTH EYES HS 07/12/21 09/28/22 Eye Drop] Naproxen Sodium [Aleve] 220 mg PO BID PRN 07/12/21 09/28/22 Omeprazole 20 mg PO DAILY 07/12/21 09/28/22 Potassium Chloride 10 meq PO DAILY 07/12/21 09/28/22 Vit C/E/Zn/Coppr/Lutein/Zeaxan 1 tab PO BID 07/12/21 09/28/22 [Preservision Areds 2 Chew Tab] Brimonidine Tartrate [Alphagan P 1 drop BOTH EYES BID 09/28/22 09/28/22 0.2% Ophth Soln] Calcium Carbonate 1.25 Gm Tab 1.25 gm PO DAILY 09/28/22 09/28/22 Cholecalciferol [Vitamin D3 (10 10 mcg PO DAILY 09/28/22 09/28/22 Mcg = 400 Iu)] Ketotifen 0.025% Ophth Soln 1 drop BOTH EYES BID PRN 09/28/22 09/28/22 [Zaditor] Simvastatin [Zocor] 40 mg PO HS 09/28/22 09/28/22 polyethylene glycoL 3350 [Miralax] 17 gm PO DAILY PRN 09/28/22 09/28/22 Previous Rx's Medication Instructions Recorded HYDROcodone/APAP 5-325MG [[place] 1 - 2 tab PO Q6HR PRN #42 tab 10/07/22 5-325] methylPREDNISolone Dose Pack 4 mg PO DIRECTED #21 tab 10/07/22 [Medrol Dose Pack] Allergies Allergy/AdvReac Type Severity Reaction Status Date / Time adhesive AdvReac Rash/Hives Verified 10/16/22 22:23 Review of Systems ROS Statement: Those systems with pertinent positive or pertinent negative responses have been documented in the HPI. ROS Other: All systems not noted in ROS Statement are negative. Past Medical History Past Medical History: Asthma, GERD/Reflux, Hyperlipidemia, Hypertension, Osteoarthritis (OA) Additional Past Medical History / Comment(s): constipation,very small stool w/ undigested foods History of Any Multi-Drug Resistant Organisms: None Reported Past Surgical History: Orthopedic Surgery Additional Past Surgical History / Comment(s): testicle, right rot cuff,right knee, right arm nerve surgery,TURP,karen shoulder replacement Past Anesthesia/Blood Transfusion Reactions: No Reported Reaction Past Psychological History: No Psychological Hx Reported Smoking Status: Never smoker Past Alcohol Use History: None Reported Past Drug Use History: None Reported - Past Family History Mother Family Medical History: Cancer Additional Family Medical History / Comment(s): stomach Father Family Medical History: COPD General Exam - General Exam Comments Initial Comments: General: Alert, in no acute distress Head: atraumatic normocephalic. Eyes PERRL, EOMI intact, mucous membranes moist Respiratory: Lungs clear to auscultation bilaterally Cardiovascular: Heart rate regular rate and Abdominal: Soft without guarding or rebound Extremities: Normal inspection with full range of motion and normal capillary refill, bilateral lower extremities with trace edema. Neuroogic: alert and oriented 3, CN II-XII intact, able to ambulate with steady gait Skin: warm dry and intact with normal color Limitations: no limitations Course Vital Signs 10/16/22 10/17/22 22:18 01:21 Temperature 98.9 F 97.8 F Pulse Rate 63 60 Respiratory 20 18 Rate Blood Pressure 123/75 126/68 O2 Sat by Pulse 97 98 Oximetry Medical Decision Making - Medical Decision Making Was pt. sent in by a medical professional or institution ([facility]UCENA Haji, [employer], urgent care, hospital, or shelter...) When possible be specific @ -[No] Did you speak to anyone other than the patient for history (EMS, parent, family, police, friend...)? What history was obtained from this source @ -Patients Did you review nursing and triage notes (agree or disagree)? Why? @ -[I reviewed and agree with nursing and triage notes] Were old charts reviewed (outside hosp., previous admission, EMS record, old EKG, old radiological studies, urgent care reports/EKG's, shelter records)? Report findings @ -[No old charts were reviewed] Differential Diagnosis (chest pain, altered mental status, abdominal pain women, abdominal pain men, vaginal bleeding, weakness, fever, dyspnea, syncope, headache, dizziness, GI bleed, back pain, seizure, CVA, palpatations, mental health, musculoskeletal)? @ -[not applicable] EKG interpreted by me (3pts min.). @ -[As above] X-rays interpreted by me (1pt min.). @ Chest x-ray negative for any acute intrapleural process or pleural consolidation CT interpreted by me (1pt min.). @ -[None done] U/S interpreted by me (1pt. min.). @ -Bilateral lower extremity ultrasound negative for any evidence of DVT What testing was considered but not performed or refused? (CT, X-rays, U/S, labs)? Why? @ -[None] What meds were considered but not given or refused? Why? @ -[None] Did you discuss the management of the patient with other professionals (professionals i.e. AZUCENA Haji, CAR BUILDER, lab, RT, psych nurse, social media manager, chair, teacher, law enforcement officer, nurse case management)? Give summary @ -[No] Was smoking cessation discussed for >3mins.? @ -[No] Was critical care preformed (if so, how long)? @ -[No] Were there social determinants of health that impacted care today? How? (Homelessness, low income, unemployed, alcoholism, drug addiction, transportation, low edu. Level, literacy, decrease access to med. care, retirement, rehab)? @ -[No] Was there de-escalation of care discussed even if they declined (Discuss DNR or withdrawal of care, Hospice)? DNR status @ -[No] What co-morbidities impacted this encounter? (DM, HTN, Smoking, COPD, CAD, Cancer, CVA, ARF, Chemo, Hep., AIDS, mental health diagnosis, sleep apnea, morbid obesity)? @ -[None] Was patient admitted / discharged? Hospital course, mention meds given and route, prescriptions, significant lab abnormalities, going to OR and other pertinent info. @ -Discharged. This is a pleasant 72-year-old female who presents the emergency department with a chief complaint of bilateral leg swelling. Patient had a thorough history and physical exam performed on the ED. Physical exam reveals trace bilateral lower extremity edema. 2+ DP/PT pulses bilaterally. Heart rate regular rate and rhythm, lungs clear to auscultation bilaterally. Patient had labs which were essentially unremarkable. Chest x-ray and ultrasound of bilateral lower extremities is negative. Patient given Lasix with mild symptomatically. He was instructed to take his outpatient Lasix as prescribed. Return precautions were discussed at length including worsening shortness of breath or worsening lower extremity edema. He is agreeable with plan for discharge home. Return precautions were discussed at length. Patient discharged in stable condition. Case discussed with NIKHIL Juarez who agrees with plan of care Undiagnosed new problem with uncertain prognosis? @ -[No] Drug Therapy requiring intensive monitoring for toxicity (Heparin, Nitro, Insulin, Cardizem)? @ -[No] Were any procedures done? @ -[No] Diagnosis/symptom? @ -Bilateral leg edema Acute, or Chronic, or Acute on Chronic? @ -Acute Uncomplicated (without systemic symptoms) or Complicated (systemic symptoms)? @ -Uncomplicated Side effects of treatment? @ -[No] Exacerbation, Progression, or Severe Exacerbation? @ -[No] Poses a threat to life or bodily function? How? (Chest pain, USA, VT, pneumonia, PE, COPD, DKA, ARF, appy, cholecystitis, CVA, Diverticulitis, Homicidal, Suicidal, threat to staff... and all critical care pts) @ -low likelihood - Lab Data Result diagrams: 10/16/22 23:48 10/16/22 23:48 Lab Results 10/16/22 10/16/22 10/16/22 Range/Units 23:48 23:48 23:48 WBC 7.4 (3.8-10.6) k/uL RBC 4.33 (4.30-5.90) m/uL Hgb 13.4 (13.0-17.5) gm/dL Hct 40.8 (39.0-53.0) % MCV 94.1 (80.0-100.0) fL MCH 30.9 (25.0-35.0) pg MCHC 32.9 (31.0-37.0) g/dL RDW 13.5 (11.5-15.5) % Plt Count 185 D (150-450) k/uL MPV 7.5 Neutrophils % 62 % Lymphocytes % 26 % Monocytes % 6 % Eosinophils % 4 % Basophils % 0 % Neutrophils # 4.6 (1.3-7.7) k/uL Lymphocytes # 1.9 (1.0-4.8) k/uL Monocytes # 0.4 (0-1.0) k/uL Eosinophils # 0.3 (0-0.7) k/uL Basophils # 0.0 (0-0.2) k/uL PT 10.2 (9.0-12.0) sec INR 1.0 (<1.2) APTT 22.8 (22.0-30.0) sec Sodium 138 (137-145) mmol/L Potassium 4.0 (3.5-5.1) mmol/L Chloride 105 (98-107) mmol/L Carbon Dioxide 32 H (22-30) mmol/L Anion Gap 1 mmol/L BUN 23 H (9-20) mg/dL Creatinine 1.08 (0.66-1.25) mg/dL Est GFR (CKD-EPI)AfAm 78 (>60 ml/min/1.73 sqM) Est GFR (CKD-EPI)NonAf 67 (>60 ml/min/1.73 sqM) Glucose 100 H (74-99) mg/dL Calcium 8.8 (8.4-10.2) mg/dL Total Bilirubin 0.4 (0.2-1.3) mg/dL AST 26 (17-59) U/L ALT 35 (4-49) U/L Alkaline Phosphatase 145 H (38-126) U/L Troponin I (0.000-0.034) ng/mL NT-Pro-B Natriuret Pep 178 pg/mL Total Protein 6.0 L (6.3-8.2) g/dL Albumin 3.4 L (3.5-5.0) g/dL 10/16/22 Range/Units 23:48 WBC (3.8-10.6) k/uL RBC (4.30-5.90) m/uL Hgb (13.0-17.5) gm/dL Hct (39.0-53.0) % MCV (80.0-100.0) fL MCH (25.0-35.0) pg MCHC (31.0-37.0) g/dL RDW (11.5-15.5) % Plt Count (150-450) k/uL MPV Neutrophils % % Lymphocytes % % Monocytes % % Eosinophils % % Basophils % % Neutrophils # (1.3-7.7) k/uL Lymphocytes # (1.0-4.8) k/uL Monocytes # (0-1.0) k/uL Eosinophils # (0-0.7) k/uL Basophils # (0-0.2) k/uL PT (9.0-12.0) sec INR (<1.2) APTT (22.0-30.0) sec Sodium (137-145) mmol/L Potassium (3.5-5.1) mmol/L Chloride (98-107) mmol/L Carbon Dioxide (22-30) mmol/L Anion Gap mmol/L BUN (9-20) mg/dL Creatinine (0.66-1.25) mg/dL Est GFR (CKD-EPI)AfAm (>60 ml/min/1.73 sqM) Est GFR (CKD-EPI)NonAf (>60 ml/min/1.73 sqM) Glucose (74-99) mg/dL Calcium (8.4-10.2) mg/dL Total Bilirubin (0.2-1.3) mg/dL AST (17-59) U/L ALT (4-49) U/L Alkaline Phosphatase (38-126) U/L Troponin I <0.012 (0.000-0.034) ng/mL NT-Pro-B Natriuret Pep pg/mL Total Protein (6.3-8.2) g/dL Albumin (3.5-5.0) g/dL Disposition Clinical Impression: Bilateral leg edema Disposition: HOME SELF-CARE Condition: Stable Instructions (If sedation given, give patient instructions): Leg Edema (ED) Additional Instructions: Please take Lasix as prescribed. Please return to the emergency department if worsening leg swelling or shortness of breath develops Is patient prescribed a controlled substance at d/c from ED?: No Referrals: [facility] [Primary Care Provider] - 1-2 days Time of Disposition: 01:00
[2022-10-17 00:07] LABS: ALT 35 U/L (4-49); AST 26 U/L (17-59); African American GFR (CKD) 78 (>60 ml/min/1.73 sqM); Albumin 3.4 g/dL (3.5-5.0); Alkaline Phosphatase 145 U/L (38-126); Anion Gap 1 mmol/L; Blood Urea Nitrogen 23 mg/dL (9-20); Calcium 8.8 mg/dL (8.4-10.2); Carbon Dioxide 32 mmol/L (22-30); Chloride 105 mmol/L (98-107); Glucose 100 mg/dL (74-99); Non-African American GFR(CKD) 67 (>60 ml/min/1.73 sqM); Sodium 138 mmol/L (137-145); Total Bilirubin 0.4 mg/dL (0.2-1.3)
[2022-10-17 00:12] LABS: Basophils % (A) 0 %; Eosinophils # (A) 0.3 k/uL (0-0.7); Eosinophils % (A) 4 %; HCT 40.8 % (39.0-53.0); HGB 13.4 gm/dL (13.0-17.5); Lymphocytes # (A) 1.9 k/uL (1.0-4.8); Lymphocytes % (A) 26 %; MCH 30.9 pg (25.0-35.0); MCHC 32.9 g/dL (31.0-37.0); MCV 94.1 fL (80.0-100.0); Mean Platelet Volume 7.5; Monocytes # (A) 0.4 k/uL (0-1.0); Monocytes % (A) 6 %; Neutrophils # (A) 4.6 k/uL (1.3-7.7); Neutrophils % (A) 62 %; RBC 4.33 m/uL (4.30-5.90); RDW 13.5 % (11.5-15.5); WBC 7.4 k/uL (3.8-10.6)
[2022-10-17 00:13] LABS: Partial Thromboplastin Time 22.8 sec (22.0-30.0); Prothrombin Time 10.2 sec (9.0-12.0)
[2022-10-17 00:15] LABS: NT-Pro-B-Type Natriuretic Pept 178 pg/mL
[2022-10-17 00:19] LABS: Platelet Count 185 k/uL (150-450)
--- NOTE | 2022-10-17 00:23 | US ---
EXAMINATION TYPE: US venous doppler duplex LE DATE OF EXAM: 10/16/2022 11:48 PM COMPARISON: NONE CLINICAL INDICATION: Male, 72 years old with history of BL leg edema; Bilat leg edema after procedure SIDE PERFORMED: Bilateral TECHNIQUE: The lower extremity deep venous system is examined utilizing real time linear array sonog ozzy with graded compression, doppler sonography and color-flow sonography. VESSELS IMAGED: Common Femoral Vein Deep Femoral Vein Greater Saphenous Vein * Femoral Vein Popliteal Vein Small Saphenous Vein * Proximal Calf Veins (* superficial vessels) Grayscale, color doppler, spectral doppler imaging performed of the deep veins of the lower extremiti es. There is normal flow, compressibility, vascular waveforms. Right Leg: Negative for DVT Left Leg: Negative for DVT IMPRESSION: No ultrasound evidence for deep venous thrombosis of the bilateral lower extremities.
[2022-10-17] MEDS ORDERED: FUROSEMIDE 10 MG/ML 2 ML VIAL IV STA (00:30)
--- NOTE | 2022-10-17 00:54 | XR ---
EXAMINATION TYPE: XR chest 2V DATE OF EXAM: 10/17/2022 12:31 AM COMPARISON: Chest radiographs from 11/05/2018 TECHNIQUE: XR chest 2V Frontal and lateral views of the chest. CLINICAL INDICATION:Male, 72 years old with history of sob; FINDINGS: Lungs/Pleura: There is no evidence of pleural effusion, focal consolidation, or pneumothorax. Hyperi nflation with chronic parenchymal changes. Pulmonary vascularity: Unremarkable. Heart/mediastinum: Cardiomediastinal silhouette is unremarkable. Musculoskeletal: No acute osseous pathology. Bilateral shoulder prosthesis. IMPRESSION: Chronic changes without evidence for acute process.
[2022-10-17] MEDS ORDERED: diphenhydrAMINE 50 MG CAP PO STA (01:05)
[2022-10-17 01:22] VITALS: BP 126/68; PULSE 60; RESP 18; TEMP 97.8
== END 2022-10-17 01:22 | disposition home or self-care (01) ==
LOC: EC 21:47
DX: R60.0 Localized edema (principal); J45.909 Unspecified asthma, uncomplicated; K21.9 Gastro-esophageal reflux disease without esophagitis; E78.5 Hyperlipidemia, unspecified; I10 Essential (primary) hypertension; M19.90 Unspecified osteoarthritis, unspecified site; Z88.8 Allergy status to other drugs, medicaments and biological substances; Z79.899 Other long term (current) drug therapy; Z79.51 Long term (current) use of inhaled steroids
CPT/HCPCS: 99284 ×2; 96374 ×2; 36415; 83880; 80053; 84484; 85025; 85610; 85730; 71046; 93970; J1940

== ENCOUNTER 2022-12-25 10:59 | Day surgery (SDC) | payer MEDICARE, OTHER ==
--- NOTE | 2022-12-25 07:48 | P.HPOR ---
History of Present Illness H&P Date: 12/03/22 .D:Date: 12/03/22 : 04:17pm .T:Title: [facility] Date of :[birth year] R14 Allergies: Age: 72 year Height: 5'7" Weight: 203 lbs BP:/ BMI: 31.79 kg/m2 Occupation: Retired VAS: 3 CHIEF COMPLAINT: S/P left SI joint injection DOI:chronic DOS:11/03/22 Post Op Week: 4 weeks HISTORY: Mr. Hernandez returns to the office for a post-operative evaluation following their left SI joint injection. Patient reports decreasing lumbar pain since the time of their injection. Patient states his groin, buttock, and left leg pain has resolved completely since his injection. He states he has 100% of his left side symptoms. Patient is still experiencing some lumbar pain and right lower extremity pain and numbness. Overall the patient has seen improvement to his condition. Patient is having mild sleep disturbances as well. For their symptoms, the patient has been taking Aleve. Otherwise the patient is very happy with the progress they have made and have no acute concerns at this time. denies any f/c/sob/cp, no incision concerns, no bladder or bowel retention/incontinence, no perineal numbness/tingling, and ambulates independently. The patient's past medical history; past surgical history; family history; medicines; allergies and social history have been reviewed and are as stated elsewhere in the chart. 16 points review of systems completed and as stated in HPI, all other systems reviewed are negative. PHYSICAL EXAM: -Patient is alert and oriented 3 appears well-nourished well-hydrated is in no acute distress. They do not appear septic. -On exam the patient has no tenderness to palpation of their thoracic or lumbar spine. There is no edema or ballottement sign. -Upper extremities show 5/5 strength in all major muscle groups. -Lower extremities with 5 out of 5 strength in all major muscle groups -There is FROM that is painless of the b/l UE and LE in all major joints. -They are intact to light touch sensation in L2 to S1 nerve distribution as well as the C5-T1 distribution. -DTRs 2/4 all upper and lower -Patient has palpable distal pulses in all four extremities -Compartments are soft and compressible. -Neg Carrera's -No Clonus -Neg Babinski -Neg Lashon's -No tensioning signs. -Cranial nerves II through XII are grossly intact. -Overall alignment is well-maintained in the sagittal coronal planes. . Surgical incision: Looks good, no sign of any infection, no drainage, EEE, edema, or ecchymosis. No fevers or chills. RADIOGRAPHS: No new xrays taken today ASSESSMENT: 1. Left sacroiliitis 2. Left lower extremity radiculopathy PLAN: All options were reviewed today, we decided the best course of action would be: - Second injection scheduled for Dec 22 -Advised patient to continue with supplements, health maintenance, and home exercise programs. Patient expressed understanding and will continue with these modalities. -Ambulate daily -Take pain medications and post op medications as needed and as directed -Ice and rest for pain and swelling control. Follow-up: 1 week after next injection Patient Education: (Informational booklet, instructions, etc) given at today's appointment: Yes .ED:Patient Education: Y Medications Reviewed: YES Attestation: In our visit today Mr. Hernandez and I have had a chance to go over my understanding of the patient's current condition, the natural course history without intervention and various interventional options. Questions were invited and answered, and the patient wishes to proceed as outlined above. I will be sure to keep you updated afterMr. Hernandez returns here for further follow-up. Thank you again for your referral. Please do not hesitate to contact me if you have any further questions. Signed and authenticated by: Kg Lozoya [facility] [address] [place] [address], [address] [id number] This message is confidential, intended only for the named recipient(s) and may contain information that is privileged or exempt from disclosure under applicable law. If you are not the intended recipient(s), you are notified that the dissemination, distribution or copying of this information is strictly prohibited. If you received this message in error, please notify the sender then delete this message. Patient verbalizes understanding of the information discussed. The above note was initiated by Dallin Cherry, physician recording internal medicine physician assistant for Dr. Kg Richmond. This note has been reviewed by Dr. Richmond, who has made his personal changes and impressions for this document. CC: AZUCENA Paulino # SIGNED BY Kg Richmond (GOO)12/10/2022 12:58PM Past Medical History Past Medical History: Asthma, GERD/Reflux, Hyperlipidemia, Hypertension, O steoarthritis (OA) Additional Past Medical History / Comment(s): constipation History of Any Multi-Drug Resistant Organisms: None Reported Past Surgical History: Orthopedic Surgery Additional Past Surgical History / Comment(s): testicle, right rot cuff,right knee, right arm nerve surgery,TURP, karen shoulder replacement. Patient fell this past summer and was hospitalized for back fractures. Past Anesthesia/Blood Transfusion Reactions: No Reported Reaction Additional Past Anesthesia/Blood Transfusion Reaction / Comment(s): can be slow to wake up @times Smoking Status: Never smoker - Past Family History Mother Family Medical History: Cancer Additional Family Medical History / Comment(s): stomach Father Family Medical History: COPD Medications and Allergies Home Medications Medication Instructions Recorded Confirmed Type Carboxymethylcellulose Sodium 1 drop BOTH EYES BID PRN 07/12/21 12/23/22 History [Refresh Tears] Fluticasone Propion/Salmeterol 1 puff INHALATION RT-BID PRN 07/12/21 12/23/22 History [Wixela 100-50 Inhub] Furosemide [Lasix] 20 mg PO DAILY 07/12/21 12/23/22 History Latanoprost/Pf [Latanoprost 0.005% 1 drop BOTH EYES HS 07/12/21 12/23/22 History Eye Drop] Naproxen Sodium [Aleve] 220 mg PO BID PRN 07/12/21 12/23/22 History Potassium Chloride 10 meq PO DAILY 07/12/21 12/23/22 History Vit C/E/Zn/Coppr/Lutein/Zeaxan 1 tab PO BID 07/12/21 12/23/22 History [Preservision Areds 2 Chew Tab] Brimonidine Tartrate [Alphagan P 1 drop BOTH EYES BID 09/28/22 12/23/22 History 0.2% Ophth Soln] Ketotifen 0.025% Ophth Soln 1 drop BOTH EYES BID PRN 09/28/22 12/23/22 History [Zaditor] Simvastatin [Zocor] 40 mg PO HS 09/28/22 12/23/22 History Calcium +D + E 1 tab PO DAILY 10/30/22 12/23/22 History Allergies Allergy/AdvReac Type Severity Reaction Status Date / Time adhesive AdvReac Rash/Hives Verified 12/23/22 13:10 Physical Examination Osteopathic Statement: *. No significant issues noted on an osteopathic struct ural exam other than those noted in the History and Physical/Consult.
[~2022-12-25 10:59] MED LIST changes: +BUPIVACAINE (PF) 0.25% 30 ML VIAL MISCELLANE ONE; +IOPAMIDOL M200 10 ML VIAL MISCELLANE ONE; -LACTATED RINGERS 1,000 ML IV SCH; -LIDOCAINE 1% (10MG/ML) FOR IV START INTRADERMA PRN; +LIDOCAINE 2%-EPI 1:100,000 20 ML VIAL SQ ONE; +Pre Op ABX Message 1 EACH MISC MISCELLANE ONE; +methylPREDNISolone ACETATE 40 MG/ML 1 ML VIAL MISCELLANE ONE
[2022-12-25 11:51] VITALS: TEMP 97.2
[2022-12-25] MEDS ORDERED: BUPIVACAINE (PF) 0.25% 30 ML VIAL MISCELLANE ONE (12:40)
[2022-12-25] MEDS ORDERED: IOPAMIDOL M200 10 ML VIAL MISCELLANE ONE (12:40)
[2022-12-25] MEDS ORDERED: methylPREDNISolone ACETATE 40 MG/ML 1 ML VIAL MISCELLANE ONE (12:40)
[2022-12-25] MEDS ORDERED: LIDOCAINE 2%-EPI 1:100,000 20 ML VIAL SQ ONE (12:40)
--- NOTE | 2022-12-25 13:05 | P.OP ---
Date of Procedure: 12/25/22 Preoperative Diagnosis: 1. LEFT SIJ OA SEVERE 2. LOW BACK PAIN Postoperative Diagnosis: 1. LEFT SIJ OA SEVERE 2. LOW BACK PAIN Procedure(s) Performed: 1. LEFT SIJ INJECTION UNDER FLOUROSCOPIC GUIDANCE. Implants: NONE Anesthesia: MARIELLEA Surgeon: Kg Richmond Estimated Blood Loss (ml): 0 IV fluids (ml): 0 Urine output (ml): 0 Pathology: none sent Condition: stable Disposition: PACU Indications for Procedure: 72 YO MALE WITH LOW BACK PAIN AND LEFT SIJ PAIN PRESENTS FOR SIJ INJECTION. HE STATES CONTINUED PAIN IN HIS LEFT SIJ. HE HAS TRIED CONSERVATIVE MEASURES WHICH HAVE FAILED. HE HAS POSITIVE PROVOCATIVE SIGNS OF THE LEFT SIJ. HE STATES NO OTHER ISSUES AT THIS TIME. RISKS AND BENEFITS WERE DISCUSSED FOR THE PROCEDURE AND HE WAS WILLING TO UNDERGO LEFT SIJ INJECTION. Description of Procedure: LEFT SIJ injection The patient was seen and examined in the preoperative area. All preoperative protocols were followed. Informed consent was obtained, risks and benefits of the procedure were discussed at length. Risks including bleeding infection damage to the surrounding tissue and risk of reoperation were discussed with the patient. Risk of anesthesia up to and including was discussed with the patient. These are outlined in the risk review. They were willing to accept these risks and all of the risks of surgery. The patient was seen and evaluated by the anesthesia team who deemed them fit for surgery. The site was marked, the patient was willing to proceed with the procedure. The patient was transferred to the operative suite by the Department of anesthesia. They were then drifted off to sleep by the department anesthesia and sedation with local was performed. The patient tolerated this well. Once confirmation of lines and ventilation the patient was transferred to a prone Leeroy table very carefully. All bony prominences including wrists, elbows, axilla, chest, hips, and thighs, and feet were padded very well. Special attenti on was paid to the genitalia and these were padded accordingly. SCDs were placed on bilateral lower extremities and were connected. Arms were well padded and placed on arm boards up and out in the 90/90 position. Once in position, again we confirmed good ventilation capabilities and that lines were running appropriately. The patient's lumbopelvic spine was then exposed. 1010s were placed outlining the incision site. Standard alcohol was used to clean the incision site and allowed to dry. C-arm was used to biomark the patient and confirm level for incision which was marked with a skin marker. Operative briefing was performed with all teams and everyone in agreement to proceed. The patient was then prepped and draped in a normal sterile fashion. Timeout was then performed and all parties were in agreement with the procedure to be performed. Biplanar fluoroscopy was used to identify the LEFT SI joints which were then accessed with a 18-gauge needle after anesthetic was placed into the chase bcutaneous tissue in the form of 1% with epinephrine of lidocaine along with a mixture of cortical percent Marcaine without epinephrine. Once there is good anesthesia and the SI joints were accessed Isovue was used to confirm within the joint space. Once this was confirmed 40 of Kenalog along with a mixture of lidocaine and Marcaine were injected into the SI joint. Patient remained stable the entire time without any radicular symptoms during the injection phase. The needles were withdrawn and the area cleaned and Band-Aids placed. The patient was transferred back to their hospital bed atraumatically. Patient was then awakened and extubated by the department of anesthesia having tolerated the procedure very well with no complications. They were transferred to the postoperative care unit in stable condition.
--- NOTE | 2022-12-25 13:20 | FL ---
Fluoroscopy INDICATION: Pain, SI joint injection FINDINGS: Fluoroscopy time: 5 seconds. Total dose area product (DAP) in uGy*m?, mGy*cm? (or similar): 0.6593 Images obtained: 3. IMPRESSION: 1. Documentation of fluoroscopy.
[2022-12-25 13:25] VITALS: BP 133/79; RESP 20
[2022-12-25 13:26] VITALS: PULSE 60
== END 2022-12-25 13:25 | disposition home or self-care (01) ==
LOC: OR 10:59
PROVIDERS: ATTEND Orthopaedic Surgery
DX: M46.1 Sacroiliitis, not elsewhere classified (principal); G47.9 Sleep disorder, unspecified; K21.9 Gastro-esophageal reflux disease without esophagitis; I10 Essential (primary) hypertension; E78.5 Hyperlipidemia, unspecified; J44.9 Chronic obstructive pulmonary disease, unspecified; J45.909 Unspecified asthma, uncomplicated; Z91.048 Other nonmedicinal substance allergy status; Z79.899 Other long term (current) drug therapy
CPT/HCPCS: 27096; J1030; Q9966; J0665

== ENCOUNTER → 2023-02-02 | Outpatient (CLI) | payer OTHER ==
--- NOTE | 2023-02-03 09:11 | CT ---
EXAMINATION TYPE: CT pelvis wo con DATE OF EXAM: 02/03/2023 COMPARISON: Abdomen and pelvis 09/28/2022 HISTORY: 72-year-old male M54.50, Low back pain TECHNIQUE: Contiguous axial scanning of the pelvis without IV contrast. Coronal and sagittal reconstr uctions performed. CT DLP: 587 mGycm Automated exposure control for dose reduction was used. FINDINGS: Scattered mild stool. No dilated small bowel, free fluid, or free air. Bladder partially distended. Prostate gland enlargement measuring 5.0 cm wide, unchanged. No abnormal fluid collection in the pelvis or pelvic lymphadenopathy. There is a fracture of the lateral aspect of the left superior pubic ramus and also fracture of the l eft inferior pubic ramus. There appears to be some mature callus and endosteal bony bridging as well though residual fracture lucency remains. Mild to moderate degenerative changes left hip and mild at the right hip. 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 Mod erate to advanced degenerative disc disease L4-L5. Mild to moderate bilateral neuroforaminal narrowin g at L4-L5. IMPRESSION: 1. FRACTURES OF THE LATERAL ASPECT OF THE LEFT SUPERIOR PUBIC RAMUS. ADDITIONAL FRACTURE OF THE LEFT INFERIOR PUBIC RAMUS. FRACTURES APPEAR SUBACUTE AND HEALING THOUGH SOME RESIDUAL FRACTURE LUCENCY IS VISUALIZED. CORRELATE TO TIME SINCE INJURY. 2. MILD TO MODERATE LEFT AND MILD RIGHT HIP OA. 3. DEGENERATIVE CHANGE IN THE LOWER LUMBAR SPINE AND BAASTRUP'S DISEASE MENTIONED ABOVE. 4. 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
== END | disposition home or self-care (01) ==
LOC: RADCTMAIN 12:54
PROVIDERS: ATTEND Orthopaedic Surgery
DX: S32.592A Other specified fracture of left pubis, initial encounter for closed fracture (principal); M47.816 Spondylosis without myelopathy or radiculopathy, lumbar region; N40.0 Benign prostatic hyperplasia without lower urinary tract symptoms; M48.27 Kissing spine, lumbosacral region
CPT/HCPCS: 72192

== ENCOUNTER → 2023-02-25 | Outpatient (CLI) | payer OTHER | END | disposition home or self-care (01) | LOC: LABPAT 08:46 | PROVIDERS: ATTEND Orthopaedic Surgery | DX: Z01.812 Encounter for preprocedural laboratory examination (principal); M13.88 Other specified arthritis, other site; M54.50 Low back pain, unspecified; Z22.322 Carrier or suspected carrier of Methicillin resistant Staphylococcus aureus | CPT/HCPCS: 86850; 86900; 86901; 87070 ==

== ENCOUNTER 2023-03-02 09:46 | Day surgery (SDC) | payer OTHER ==
--- NOTE | 2023-03-02 07:01 | P.HPOR ---
History of Present Illness H&P Date: 02/25/23 .D:Date: 02/25/23 : 08:36am .T:Title: *[facility] History and Physical Date of :46 [id number]: NKDA Age: 72 year Height: 5'7" Weight: 208 lbs BMI: 32.58 kg/m2 Occupation: Retired VAS: 5 Hand:Right ASSESSMENT: 1. Right sacroiliitis 2. Right lower extremity radiculopathy Spine Surgery Risk Review Mr. Hernandez is presenting for evaluation of low back and right lower extremity pain, right lower extremity numbness and tingling. It was my pleasure to have seen and examined Mr. Hernandez. In our visit today we have had a chance to go over subjective complaints, physical examination findings and treatments including the natural course history without intervention and various interventional options. The patients imaging demonstrates: XRay Lumbar Multiview (AP, Lateral, Flexion, Extension) with AP pelvis; 5 views taken at [facility] on 10/10/22: - Re-reviewed with the patient today. Severe spondylitic and degenerative changes with preserved alignment. Multilevel diminished disc height. Grade 1 anterolisthesis L3 and L4. Grade 1 retrolisthesis T12 onto L1, L1 onto L2. T12 and L1 compression fractures noted, remaining vertebral body heights are preserved. No acute osseous abnormalities. AP Pelvis: The visualized sacrum and iliac wings are within normal limits. CT [facility] from 10/06/22 of LumbarSpine: - Re-reviewed with the patient today. IMPRESSION: 1. No evidence for spinal fracture. 2. L3-L4 and L4-L5 disc bulge and facet joint arthropathy with moderate to severe spinal canal stenosis. 3. Degeneration changes worse at L1-L2 with moderate to severe bilateral neural foraminal stenosis. Additional very degrees of neural foraminal stenosis throughout the spine. On physical exam, Mr. Hernandez demonstrates: Gradual return of sharp, shooting low back pain since the time of his second SI joint injection. He states that his low back pain radiates down into the right buttock and posterior aspect of the right lower extremity. He states his right leg pain is associated with numbness and tingling. He notes intermittent radiating pain up into the right side of the mid back. The patient states his symptoms are exacerbated by prolonged walking, standing, driving, when going up the stairs, and when going from a seated to standing position. He reports experiencing severe sleep disturbances related to his ongoing pain and associated symptoms. I have explained to the patient that as their condition progresses it will cause further neurological deficits and eventual paralysis. Based on the patients imaging, physical exam, and the rapid progression and disabling nature of their symptoms, at this time I recommend surgery in the form of a: Right SI joint fusion. I discussed the risk and benefits of this procedure at length with Mr. Hernandez. The patient agreed to considered pursuing the procedure above mentioned. Prior to surgery, she should follow up with her PCP (Cardio, ID, IM etc) for clearance. Questions were invited and answered, and the patient wishes to proceed as outlined below. Currently, I am recommendin. Right SI joint fusion 2.Review of surgical risks and benefits as well as an educational packet on the proposed surgical procedure. Risks: All surgical procedures come with inherent risks, including those related to positioning, anesthesia, intraoperative findings, and postoperative complications. It is important to understand that surgery does not come with any guarantee of a successful outcome as complications and adverse events are always possible. The patient was given a handout in office today discussing the surgical procedure and risks associated with the intervention, both of which were d iscussed with the patient. These risks include but are not limited to the following: * Experiencing same, different or even worse symptoms in back, neck, arms, or legs compared to before surgery. Requiring further surgery or other forms of treatment presently or at some time in the future at same or other levels of the intended spine surgery. On an extreme but fortunately relatively rare basis severe complication such as blindness, stroke, heart attack, temporary and/or permanent nerve injury, paralysis, coma, or may occur, sometimes without known explanation. Surgical complications may include but are not limited to risk of infection, fluid accumulation in the surgical dissection site, including a seroma or hematoma, that requires additional surgery, wound drainage, bleeding, new numbness or weakness, vision changes/loss, spinal fluid leakage, non-healing and/or infected incision, headaches, difficulty or inability to swallow, hoarseness, hemopneumothorax, pneumothorax, impotence, retrograde ejaculation, vaginal dryness; injury to nerves, spinal cord, blood vessels, lymphatics or other vital organs (i.e., bowel injury, injury to the great vessels); heterotopic bone formation; complications related to the hardware such as screws, rods, cages including misplaced hardware, device failure, instrumentation at the wrong spine level, hardware fracture/breakage, or hardware loosening; vertebral failure of the spinal column above or below the newly placed hardware; retained surgical instrumentations or devices and the need for further surgery. * Medical risks of the planned spine surgery include but are not limited to generalized Infections to the whole body or local areas outside of the surgical site (sepsis), heart attack, bleeding, anaphylaxis, meningitis, seizure, epilepsy, hearing loss, burn irby, laceration of the head or other areas of the body, bruising, hypersensitivity of the skin, bladder over distension; allergic reaction; shoulder injury related to positioning; fat, blood and air clots to other areas of the body like heart, lungs, brain; failure of internal organs such as lungs, kidneys, liver and excessive bleeding. If blood transfusions are necessary, note that transfusions may cause intolerance reactions such as anaphylaxis or other complex reactions. Despite best efforts, the results of spine surgery might not heal in terms of bone, soft tissues such as skin, fascia, ligaments, and joints. Additionally, in order to achieve best possible results, spine surgery may be carried out beyond the initially planned levels and involve decompression, fusion including insertion of hardware at levels other than the original intended area of surgical interest change some portions of the procedure in order to ensure the best possible outcomes. With spine surgery and spinal fusion, there are different off label uses of instrumentation (devices, implants and hardware) as well as biological substances (bone morphogenic proteins, demineralized bone matrix) as well as using extra bone from allograft sources (i.e. cadaver bone) or autograft (iliac crest bone, ribs, or the spine itself). The patient has been given information about these practices and their inherent risks and benefits. [facility] is an educational center that serves as a training facility for neurosurgical and orthopedic HRIS ADMINISTRATOR and Nursing students. Physician assistants are medically trained surgical providers who function in the outpatient, inpatient, and operating room setting under the direct supervision of the attending surgeon. [facility] has multiple operating rooms with single and overlapping rooms running daily. They currently function under the required guidelines as produced by the [facility] Finance Committee with regards to the overlapping rooms and will continue to comply with changes to this policy as they occur. The requirements include and are complied with as follows: (1) the critical portions of the overlapping rooms will not occur at the same time, (2) the attending physician will be physically present during the critical portions of the procedure and immediately available during the entire case, and (3) a back-up attending is designated should the primary attending not be immediately available. The patient has had a chance to review all the listed information, has been given print outs detailing this information, and has had all his/her questions answered to their satisfaction. It was my pleasure to have seen and examined Mr. Hernandez. In our visit today we have had a chance to go over my understanding of our patient's current condition, the natural course history without intervention and various interventional options. Questions were invited and answered, and the patient wishes to proceed as outlined above. I have seen and examined the patient for 25 minutes and we have spent more than 50% of the time in repeat and detailed counseling about the patient's condition, its natural course history with out and as much as can be predicted with surgery and re-review of various surgical treatment options. In conclusion, Mr. Hernandez requested we proceed with the above suggested chase rgery and are willing to accept risks and limitations of the suggested surgery as nature of the disease process and our best attempts at treatment for the condition. Thank you again for allowing us to be part of your patient's care. Please don't hesitate to contact me if you have any further questions. Follow-up: Post procedure Patient Education: (Informational booklet, instructions, etc) given at today's appointment: Yes .ED:Patient Education: Y Medications Reviewed: YES In our visit today Mr. Hernandez and I have had a chance to go over my understanding of the patient's current condition, the natural course history without intervention and various interventional options. Questions were invited and answered, and the patient wishes to proceed as outlined above. I will be sure to keep you updated afterMr. Hernandez returns here for further follow-up. Thank you again for your referral. Please do not hesitate to contact me if you have any further questions. Signed and authenticated by: Kg Gonzalez [facility] Complex and Minimally Invasive Spine Surgery [address], [address] [address] This message is confidential, intended only for the named recipient(s) and may contain information that is privileged or exempt from disclosure under applicable law. If you are not the intended recipient(s), you are notified that the dissemination, distribution or copying of this information is strictly prohibited. If you received this message in error, please notify the sender then delete this message. Patient verbalizes understanding of the information discussed. The above note was initiated by Brooke Robins, physician recording assistant track and field coach for Dr. Kg Richmond. This note has been reviewed by Dr. Richmond, who has made his personal changes and impressions for this document. 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 Patient fell this past summer and was hospitalized for back fractures.lump removed from back, eyelids lifted, Past Anesthesia/Blood Transfusion Reactions: No Reported Reaction Additional Past Anesthesia/Blood Transfusion Reaction / Comment(s): can be slow to wake up @times Smoking Status: Never smoker - Past Family History Mother Family Medical History: Cancer Additional Family Medical History / Comment(s): stomach Father Family Medical History: COPD Medications and Allergies Home Medications Medication Instructions Recorded Confirmed Type Carboxymethylcellulose Sodium 1 drop BOTH EYES BID PRN 07/12/21 02/24/23 History [Refresh Tears] Fluticasone Propion/Salmeterol 1 puff INHALATION RT-BID PRN 07/12/21 02/24/23 History [Wixela 100-50 Inhub] Furosemide [Lasix] 20 mg PO DAILY 07/12/21 02/24/23 History Latanoprost/Pf [Latanoprost 0.005% 1 drop BOTH EYES HS 07/12/21 02/24/23 History Eye Drop] Naproxen Sodium [Aleve] 220 mg PO BID PRN 07/12/21 02/24/23 History Potassium Chloride 10 meq PO DAILY 07/12/21 02/24/23 History Vit C/E/Zn/Coppr/Lutein/Zeaxan 1 tab PO BID 07/12/21 02/24/23 History [Preservision Areds 2 Chew Tab] Brimonidine Tartrate [Alphagan P 1 drop BOTH EYES BID 09/28/22 02/24/23 History 0.2% Ophth Soln] Ketotifen 0.025% Ophth Soln 1 drop BOTH EYES BID PRN 09/28/22 02/24/23 History [Zaditor] Simvastatin [Zocor] 40 mg PO HS 09/28/22 02/24/23 History Calcium +D + E 1 tab PO DAILY 10/30/22 02/24/23 History Allergies Allergy/AdvReac Type Severity Reaction Status Date / Time adhesive AdvReac Rash/Hives Verified 02/24/23 13:45 Physical Examination Osteopathic Statement: *. No significant issues noted on an osteopathic structural exam other than those noted in the History and Physical/Consult.
[~2023-03-02 09:46] MED LIST changes: +ACETAMINOPHEN TAB 500 MG TAB PO PRN; -BUPIVACAINE (PF) 0.25% 30 ML VIAL MISCELLANE ONE; +DEXAMETHASONE SOD PHOSPHATE 4 MG/ML 1 ML VIAL IV ONE; +GABAPENTIN 300 MG CAP PO PRN; +HYDROmorphone 0.5 MG/0.5 ML SYRINGE IVP PRN; -IOPAMIDOL M200 10 ML VIAL MISCELLANE ONE; +LIDOCAINE 1% (10MG/ML) FOR IV START INTRADERMA PRN; -LIDOCAINE 2%-EPI 1:100,000 20 ML VIAL SQ ONE; +ONDANSETRON 4 MG/2 ML VIAL IVP ONE; +ONDANSETRON 4 MG/2 ML VIAL IVP PRN; -Pre Op ABX Message 1 EACH MISC MISCELLANE ONE; +TRANEXAMIC 1,000 MG/100ML-NACL 1,000 MG in SALINE 1 100ML.BAG IVPB PRN; +droPERidol 5 MG/2 ML VIAL IVP PRN; -methylPREDNISolone ACETATE 40 MG/ML 1 ML VIAL MISCELLANE ONE
[2023-03-02] MEDS: LACTATED RINGERS 1,000 ML IV SCH ×2 (10:21→20:55)
[2023-03-02] MEDS ORDERED: LACTATED RINGERS 1,000 ML IV ONE (10:22)
[2023-03-02] MEDS ORDERED: DEXAMETHASONE SOD PHOSPHATE 4 MG/ML 1 ML VIAL IVP ONE (10:31)
[2023-03-02 10:52] LABS: Glucose,Whole Blood 122 mg/dL (70-110)
[2023-03-02] MEDS ORDERED: fentaNYL (PF) 50 MCG/ML 2 ML AMP ONE (13:01)
[2023-03-02] MEDS ORDERED: PHENYLEPHRINE 10 MG/ML VIAL ONE (13:01)
[2023-03-02] MEDS ORDERED: SUCCINYLCHOLINE CHLORIDE 200 MG/10 ML VIAL IV ONE (13:01)
[2023-03-02] MEDS ORDERED: ePHEDrine 50 MG/ML 1 ML VIAL ONE (13:01)
[2023-03-02] MEDS ORDERED: LIDOCAINE 1% INJ 10MG/ML (20 ML MDV) ONE (13:01)
[2023-03-02] MEDS ORDERED: PROPOFOL 10 MG/ML 20 ML VIAL IV ONE (13:01)
[2023-03-02] MEDS ORDERED: TRANEXAMIC 1,000 MG/100ML-NACL PREMIX BAG ONE (13:01)
[2023-03-02] MEDS ORDERED: GELATIN SPONGE,ABSORB (LARGE) 1 EACH SPONGE TOPICAL ONE (13:42)
[2023-03-02] MEDS ORDERED: THROMBIN (BOVINE) 5,000 UNIT VIAL TOPICAL ONE (13:42)
[2023-03-02] MEDS ORDERED: BUPIVACAINE (PF) 0.5% 30 ML VIAL SQ ONE (14:39)
[2023-03-02] MEDS ORDERED: LIDOCAINE 2%-EPI 1:100,000 20 ML VIAL SQ ONE (14:40)
--- NOTE | 2023-03-02 15:26 | XR ---
EXAMINATION TYPE: XR lumbar spine 2 or 3V, FL guidance operating room DATE OF EXAM: 03/02/2023 Comparison: None Clinical History: M13.88 LEFT SACROILIAC JOINT OA Findings: SI joint fusion. 1:02 sec fl time. 6148.05 mGycm2 dap. 6 images submitted. Impression: Intraoperative fluoroscopy as above.
[2023-03-02] MEDS ORDERED: HYDROcodone/APAP 7.5-325MG 1 EACH TAB ONE (16:37)
[2023-03-02 16:45] LABS: Glucose,Whole Blood 140 mg/dL (70-110)
[2023-03-02] MEDS: HYDROcodone/APAP 7.5-325MG 1 EACH TAB PO PRN (22:11)
[2023-03-03] MEDS: ONDANSETRON 4 MG/2 ML VIAL IVP PRN ×2 (01:03→23:07)
--- NOTE | 2023-03-03 07:19 | P.OP ---
Date of Procedure: 03/02/23 Preoperative Diagnosis: Current Active Problems Spondylosis of lumbosacral region (Acute) Bilateral sacroiliitis (Acute) Sacroiliitis, not elsewhere classified (Acute) Postoperative Diagnosis: Current Active Problems Spondylosis of lumbosacral region (Acute) Bilateral sacroiliitis (Acute) Sacroiliitis, not elsewhere classified (Acute) Procedure(s) Performed: 1. LEFT SIDED MINIMALLY INVASIVE SACROILIIAC JOINT FUSION 2. USE OF Fanergies NAVIGATION FOR SCREW PLACEMENT 10500 Implants: -HARI SIJF SCREWS X3 10.5 MM Anesthesia: GETA Surgeon: Kg Richmond Device Engineer #1: Terrance Price (WAS PRESENT AND ASSISTED WITH ALL ASPECTS OF THE CASE FROM POSITION TO CLOSURE) Estimated Blood Loss (ml): 50 IV fluids (ml): 1,200 Urine output (ml): 0 Pathology: none sent Condition: stable Disposition: PACU Indications for Procedure: Mr. Hernandez is presenting for evaluation of low back and right lower extremity pain, right lower extremity numbness and tingling. It was my pleasure to have seen and examined Mr. Hernandez. In our visit today we have had a chance to go over subjective complaints, physical examination findings and treatments including the natural course history without intervention and various interventional options. The patients imaging demonstrates: XRay Lumbar Multiview (AP, Lateral, Flexion, Extension) with AP pelvis; 5 views taken at [facility] on 10/10/22: - Re-reviewed with the patient today. Severe spondylitic and degenerative changes with preserved alignment. Multilevel diminished disc height. Grade 1 anterolisthesis L3 and L4. Grade 1 retrolisthesis T12 onto L1, L1 onto L2. T12 and L1 compression fractures noted, remaining vertebral body heights are preserved. No acute osseous abnormalities. AP Pelvis: The visualized sacrum and iliac wings are within normal limits. CT [facility] 10[facility]06[facility]22 of LumbarSpine: - Re-reviewed with the patient today. IMPRESSION: 1. No evidence for spinal fracture. 2. L3-L4 and L4-L5 disc bulge and facet joint arthropathy with moderate to severe spinal canal stenosis. 3. Degeneration changes worse at L1-L2 with moderate to severe bilateral neural foraminal stenosis. Additional very degrees of neural foraminal stenosis throughout the spine. On physical exam, Mr. Hernandez demonstrates: Gradual return of sharp, shooting low back pain since the time of his second SI joint injection. He states that his low back pain radiates down into the right buttock and posterior aspect of the right lower extremity. He states his right leg pain is associated with numbness and tingling. He notes intermittent radiating pain up into the right side of the mid back. The patient states his symptoms are exacerbated by prolonged walking, standing, driving, when going up the stairs, and when going from a seated to standing position. He reports experiencing severe sleep disturbances related to his ongoing pain and associated symptoms. I have explained to the patient that as their condition progresses it will cause further neurological deficits and eventual paralysis. Based on the patients im aging, physical exam, and the rapid progression and disabling nature of their symptoms, at this time I recommend surgery in the form of a: Right SI joint fusion. I discussed the risk and benefits of this procedure at length with Mr. Hernandez. The patient agreed to considered pursuing the procedure above mentioned. Prior to surgery, she should follow up with her PCP (Cardio, ID, IM etc) for clearance. Questions were invited and answered, and the patient wishes to proceed as outlined below. Currently, I am recommendin. LEFT SI joint fusion Description of Procedure: SIJ FUSION (ELEONORA) The patient was seen and examined in the preoperative area. All preoperative protocols were followed. Informed consent was obtained risks and benefits of the procedure were discussed at length. Risks including bleeding infection damage to the surrounding tissue and risk of reoperation were discussed with the patient. Risk of anesthesia up to and including was a discussed with the patient. These are outlined in the risk review. They were willing to accept these risks and all of the risks of surgery. The patient was given a weight-based dose of antibiotics in the form of [antibiotic]. The patient was seen and evaluated by the anesthesia team who deemed them fit for surgery. The site was marked, the patient was willing to proceed with the procedure. The patient was transferred to the operative suite by the Department of anesthesia. They were then drifted off to sleep by the department anesthesia and [anesthesia type] was performed. The patient tolerated this well. Once confirmation of lines and ventilation the patient was transferred to a [prone Leeroy table very carefully]. All bony prominences including wrists, elbows, axilla, chest, hips, and thighs, and feet were padded very well. Special attention was paid to the genitalia and these were padded accordingly. SCDs were placed on bilateral lower extremities and were connected. Arms were well padded and placed [on arm boards up and out in the 90/90 position]. Once in position, again we confirmed good ventilation capabilities and that lines were running appropriately. The patient's lumbopelvic spine was then exposed. 1010s were placed outlining the incision site. Standard alcohol was used to clean the incision site and allowed to dry. C-arm was used to biomark the patient and confirm level for incision which was marked with a skin marker. Operative briefing was performed with all teams and everyone in agreement to proceed. The patient was then prepped and draped in a normal sterile fashion. Timeout was then performed and all parties were in agreement with the procedure to be performed. skin were made over the PSIS on the right-hand side for tracker placement. Pins were placed in the PSIS for the Merus navigation tracker and this was attached. Z drape was then placed in a 3-D C-arm spent was obtained and registered. Was then confirmed to be accurate once confirmed to be accurate the site on the left-hand side of the patient's upper lateral buttock region was marked and skin incision made along the sacral line. Blunt dissection taken through the gluteal fascia and the gluteus apurva muscle bluntly split. Jamshidi navigated was then used to plan 3 screws in a triangular fashion around the SI joint on the left-hand side. Jamshidi was then used to breach the cortex laterally and a pin was placed in its void. A navigated tap followed by a navigated measured screw was then placed over the wire. This was repeated at the other levels of screw. AP lateral inlet and outlet views were taken during and after each screw placement was confirmed good placement of screws. Neuro monitoring remained stable throughout with no EMG. The screws were then tested and all tested above 20 mA. The wound was then copiously irrigated with normal sterile saline. The pins were removed from the PSIS and tracker was removed. The sites were then irrigated. Deep fascia was then closed with 0 Vicryl. Superficial subcu tissue closed with 2-0 Vicryl and skin closed with a running strata fix suture. The wound was then cleaned and dressed sterilely with a exophytic and glue tape which was then allowed to dry. It was then dressed with operative foam dressings. The patient was transferred back to their hospital bed atraumatically. Patient was then awakened and extubated by the department of anesthesia having tolerated the procedure very well with no complications. They were transferred to the postoperative care unit in stable condition.
[2023-03-03] MEDS: HYDROcodone/APAP 7.5-325MG 1 EACH TAB PO PRN (09:21)
--- NOTE | 2023-03-03 13:13 | P.PN ---
Progress Note - Text Progress Note Date: 03/03/23 diagnosis: Left lower extremity pain/radiculopathy Subjective: Patient was seen at bedside this afternoon in semirecumbent position in bed with present during encounter. Patient says he was going to go home yesterday after surgery, however, patient says he is having a lot of burning type pain down the back of his left leg. Patient says he is not able to get out of bed or walk under his own power so he thought he needed to stay in hospital. Patient says he does have 4 steps into his home and lives with his . He says normally he uses a cane to ambulate. Patient says he has urinated several times since surgery yesterday Patient denies any back pain. Patient denies chest pain, fever, shortness breath, nausea, vomiting, change in vision, loss of bowel/bladder control. Objective: Incision appears to be clean, dry, intact. Negative for any active drainage. Sensation is equal, symmetric, bilaterally intact throughout the lower extremities. Patient does have some generalized tenderness to palpation directly over incision on left hip/pelvis. Nontender to palpation throughout rest exam. Patient does have some limited range of motion and left lower extremity in knee flexion/extension and hip flexion/extension secondary to referred pain to the left hip. 4/5 and resisted left hip flexion extension and left knee flexion/extension. 4+/ 5 in all other major motor exam bilateral lower extremities. Radial pulses intact, 2+ bilaterally. Cap refill under 3 seconds in digits of the upper extremities. DP pulses palpable bilaterally. Negative Homans bilaterally. Assessment: Left lower extremity pain/radiculopathy - Postop day 1 status post left SI joint fusion Plan: 1. Left lower extremity pain/radiculopathy - pain medication as needed. Decadron 4 mg IVP every 6 hours has been ordered. Gabapentin and Emden for pain. Plan for PT/OT evaluation. Patient to be toe touch weightbearing left lower extremity and weightbearing as tolerated right lower extremity with use a walker/cane. We will continue to follow patient during his stay in hospital. Plan discharge home tomorrow. 2. Pain management - Emden; gabapentin 3. DVT prophylaxis - mechanical 4. GI prophylaxis - senna 5. PT/OT - toe-touch weightbearing left lower extremity; weightbearing as tolerated right lower extremity. Use walker/cane 6. Encourage incentive spirometer use 7. Discharge planning - plan for discharge home tomorrow
[2023-03-03] MEDS: GABAPENTIN 300 MG CAP PO SCH ×2 (15:20→21:53)
[2023-03-03] MEDS: DEXAMETHASONE SOD PHOSPHATE 4 MG/ML 1 ML VIAL IVP SCH ×2 (17:22→23:53)
[2023-03-03 21:05] VITALS: RESP 16
[2023-03-04] MEDS: HYDROcodone/APAP 7.5-325MG 1 EACH TAB PO PRN (06:07)
[2023-03-04] MEDS: DEXAMETHASONE SOD PHOSPHATE 4 MG/ML 1 ML VIAL IVP SCH ×2 (06:07→13:03)
[2023-03-04 07:52] VITALS: BP 116/63; PULSE 65; TEMP 99.1
[2023-03-04] MEDS: LACTATED RINGERS 1,000 ML IV SCH (09:04)
[2023-03-04] MEDS: GABAPENTIN 300 MG CAP PO SCH (09:04)
--- NOTE | 2023-03-04 09:56 | P.PN ---
Subjective Progress Note Date: 03/04/23 Principal diagnosis: Left sacroliliitis Left lower extremity radiculopathy Patient seen and examined this morning. Patient is resting comfortable in bed. He notes that his symptoms have improved. He was able to ambulate to the restroom without difficulty utilizing a walker. Pending Physical therapy evaluation patient will be discharged later today home with homecare vs [facility]. Objective - Vital Signs Vital signs: Vital Signs Temp 99.1 F 03/04/23 07:15 Pulse 65 03/04/23 07:15 Resp 16 03/04/23 07:15 BP 116/63 03/04/23 07:15 Pulse Ox 93 L 03/04/23 07:15 FiO2 Intake & Output 03/03/23 03/04/23 03/04/23 18:59 06:59 18:59 Intake Total 820 Output Total 500 1400 Balance 320 -1400 Intake: Intake, IV Titration 240 Amount Lactated Ringers 1,000 ml 240 @ 20 mls/hr IV .Q24H ALLISON Rx#:[id number] Oral 580 Output: Urine 500 1400 Other: Voiding Method Urinal Urinal # Voids 2 - Exam Inspection: Negative for any open fractures, ecchymosis, significant erythema/ulcers. Surgical dressing to the left SI joint region, CDI Sensation: Sensation is equal, symmetric, bilaterally intact throughout the upper and lower extremities Palpation: Nontender to palpation throughout bilateral upper and lower extremities and throughout spine exam Range of motion: Patient does have full range of motion bilateral upper and right lower extremities on exam, limited on the left lower extremity secondary to surgical procedure. Motor: 5/5 in all major motor groups in the bilateral upper and 4/5 lower extremities Special tests: Negative Homans bilaterally. Negative Boris bilaterally. Negative clonus bilaterally. Neurovascular: Radial pulse intact, 2+ bilaterally. Cap refill under 3 seconds in digits upper extremities. Assessment and Plan Assessment: Postop day 2: Left SI joint fusion Left sacroiliitis Left lower extremity radiculopathy Plan: -Appreciate legal consultant and team management. -Activity: Ambulate QID, OOB all meals, up and about, limit lifting bending twisting to less than 5 lbs. Use walker or cane if needed for stability. -Daily PT/OT, increase ambulation strength and balance. -Pain control: Adequate at this time -Meds: reviewed -GI ppx: senna, Miralax -DVT PPX: Mechanical -Hygiene: Shower today. Maintain dressing clean and dry. -Encourage IS 10x/hr -Dispo: Anticipate discharge home later today with homecare *I reviewed and discussed this case with my attending Dr. Richmond, whom has reviewed this chart and films and is in agreement with assessment and plan of care as outlined above. I have personally seen and examined the patient, performed the documentation and the assessment and plan as written. Number of minutes spent on the visit: 15.
--- NOTE | 2023-03-04 11:51 | P.DS ---
Providers Date of admission: 03/02/23 Expected date of discharge: 03/04/23 Attending physician: Kg Richmond DO Primary care physician: Stated None Hospital Course: Hospital Course: The patient was evaluated preoperatively and found to have the diagnosis of left sacroiliitis. They underwent appropriate preoperative care and were willing to undergo the intended procedure. They underwent a successful left SI joint fusion, were recovered appropriately and sent to the floor. While on the floor they worked with physical therapy, occupational therapy and nursing to enhance their recovery experience. Their pain was well controlled through their stay and they were started on appropriate medications, DVT ppx modalities, activity and dietary needs. Daily labs were monitored closely, and transfusions were only used when necessary. Medicine as well as other consulting services have made their input and have helped with our team approach and multidisciplinary care. PT milestones have been met and passed and they have made the recommendation of home for this patient and treating providers agree with this care path. The patient will be discharged home with appropriate medications, instructions and follow-up information and in stable condition. Patient Condition at Discharge: Good Plan - Discharge Summary Discharge Rx Participant: No New Discharge Prescriptions: New cefaDROXiL [Duricef] 500 mg PO Q12HR 5 Days #10 cap Gabapentin 300 mg PO TID #30 cap HYDROcodone/APAP 7.5-325MG [[place] 7.5-325] 1 tab PO Q6HR PRN #28 tab PRN Reason: Pain Sennosides/Docusate Sodium [Senna Plus 8.6-50 mg Softgel] 1 each PO DAILY #20 capsule Cyclobenzaprine [Flexeril] 5 mg PO TID #21 tablet No Action Potassium Chloride 10 meq PO DAILY Naproxen Sodium [Aleve] 220 mg PO BID PRN PRN Reason: Pain Carboxymethylcellulose Sodium [Refresh Tears] 1 drop BOTH EYES BID PRN PRN Reason: dry eyes Vit C/E/Zn/Coppr/Lutein/Zeaxan [Preservision Areds 2 Chew Tab] 1 tab PO BID Furosemide [Lasix] 20 mg PO DAILY Brimonidine Tartrate [Alphagan P 0.2% Ophth Soln] 1 drop BOTH EYES BID Simvastatin [Zocor] 40 mg PO HS Latanoprost/Pf [Latanoprost 0.005% Eye Drop] 1 drop BOTH EYES HS Fluticasone Propion/Salmeterol [Wixela 100-50 Inhub] 1 puff INHALATION RT-BID PRN PRN Reason: shortness breath Ketotifen 0.025% Ophth Soln [Zaditor] 1 drop BOTH EYES BID PRN PRN Reason: allergies Calcium +D + E 1 tab PO DAILY Discharge Medication List Carboxymethylcellulose Sodium [Refresh Tears] 1 drop BOTH EYES BID PRN 07/12/21 [History] Fluticasone Propion/Salmeterol [Wixela 100-50 Inhub] 1 puff INHALATION RT-BID PRN 07/12/21 [History] Furosemide [Lasix] 20 mg PO DAILY 07/12/21 [History] Latanoprost/Pf [Latanoprost 0.005% Eye Drop] 1 drop BOTH EYES HS 07/12/21 [History] Naproxen Sodium [Aleve] 220 mg PO BID PRN 07/12/21 [History] Potassium Chloride 10 meq PO DAILY 07/12/21 [History] Vit C/E/Zn/Coppr/Lutein/Zeaxan [Preservision Areds 2 Chew Tab] 1 tab PO BID 07/12/21 [History] Brimonidine Tartrate [Alphagan P 0.2% Ophth Soln] 1 drop BOTH EYES BID 09/28/22 [History] Ketotifen 0.025% Ophth Soln [Zaditor] 1 drop BOTH EYES BID PRN 09/28/22 [History] Simvastatin [Zocor] 40 mg PO HS 09/28/22 [History] Calcium +D + E 1 tab PO DAILY 10/30/22 [History] Cyclobenzaprine [Flexeril] 5 mg PO TID #21 tablet 03/02/23 [Rx] Gabapentin 300 mg PO TID #30 cap 03/02/23 [Rx] HYDROcodone/APAP 7.5-325MG [[place] 7.5-325] 1 tab PO Q6HR PRN #28 tab 03/02/23 [Rx] Sennosides/Docusate Sodium [Senna Plus 8.6-50 mg Softgel] 1 each PO DAILY #20 capsule 03/02/23 [Rx] cefaDROXiL [Duricef] 500 mg PO Q12HR 5 Days #10 cap 03/02/23 [Rx] Follow up Appointment(s)/Referral(s): Kg Richmond DO [Doctor of Osteopathic Medicine] - 03/18/23 9:45 am Patient Instructions/Handouts: *Surgery [facility] - (Anesthesia) Discharge Instructions Outpatient Surgery, After Arthrodesis (DC), Arthrodesis (DC), Arthrodesis (GEN) Activity/Diet/Wound Care/Special Instructions: 1. toe-touch weight bearing left lower extremity. 2. pain medication as needed 3. follow up in office in [address] Richmond 4. contact [facility] at [phone] with any questions Discharge Disposition: HOME SELF-CARE
== END 2023-03-04 14:48 | disposition home or self-care (01) ==
LOC: OR 09:46 → 5NMEDONC 17:10 → OR 03-04 14:48
PROVIDERS: ATTEND Orthopaedic Surgery
DX: M46.1 Sacroiliitis, not elsewhere classified (principal); M47.817 Spondylosis without myelopathy or radiculopathy, lumbosacral region; J45.909 Unspecified asthma, uncomplicated; K21.9 Gastro-esophageal reflux disease without esophagitis; E78.5 Hyperlipidemia, unspecified; I10 Essential (primary) hypertension; H40.9 Unspecified glaucoma; H93.19 Tinnitus, unspecified ear; Z98.890 Other specified postprocedural states; Z80.9 Family history of malignant neoplasm, unspecified; Z79.899 Other long term (current) drug therapy; Z91.048 Other nonmedicinal substance allergy status
CPT/HCPCS: 72100; 27279; 61783; C1713; J1100 ×3; J0690; J2405 ×2; J1170; J0665

== ENCOUNTER → 2024-02-10 | Outpatient (CLI) | payer OTHER ==
--- NOTE | 2024-02-10 14:17 | CT ---
EXAMINATION TYPE: CT chest wo con CT DLP: 771 mGycm, Automated exposure control for dose reduction was used. DATE OF EXAM: 02/10/2024 1:47 PM COMPARISON: Chest radiograph 10/17/2022, CT chest abdomen and pelvis 11/05/2018 CLINICAL INDICATION:Male, 73 years old with history of R07.9 Chest pain; PHH, lower chest/upper abdom inal pain on left side. Pt mentioned possible broken ribs. TECHNIQUE: Multiple axial images were obtained through the chest without IV contrast. Lack of IV or o ral contrast limits evaluation of solid and hollow organ viscera. . Coronal and sagittal reformats re viewed. FINDINGS: LUNGS/ PLEURA: No pleural effusion, pneumothorax, focal consolidation. Minimal linear atelectasis wit hin the bilateral lower lobes. Minimal biapical pleural parenchymal scarring. No suspicious pulmonary nodule or mass. AIRWAY: Patent and unremarkable.. HEART: Size within normal limits.No pericardial effusion. Small coronary artery calcifications. MEDIASTINUM: No gross evidence of adenopathy. Punctate calcified mediastinal and right hilar lymph no antonio. VASCULATURE: No aortic aneurysm. Mild atherosclerotic calcification of the aortic arch. MUSCULOSKELETAL: No acute osseous abnormalities. Postsurgical changes from bilateral shoulder arthrop lasty. Multilevel degenerative disc disease. Slight anterior wedging of the T11 vertebral body redemo nstrated. SOFT TISSUES/LYMPH NODES: Bilateral gynecomastia. LOWER NECK: No significant findings. UPPER ABDOMEN: Small hiatal hernia. IMPRESSION: No CT evidence for acute process. [facility], , 02/10/2024 2:15 PM
== END | disposition home or self-care (01) ==
LOC: RADCTMAIN 13:22
PROVIDERS: ATTEND Family Medicine
DX: R07.9 Chest pain, unspecified (principal); R10.9 Unspecified abdominal pain
CPT/HCPCS: 71250

== ENCOUNTER 2024-02-29 09:56 | Observation (INO) | payer OTHER, MEDICARE ==
--- NOTE | 2024-02-29 10:33 | ED ---
General Adult HPI - General Stated complaint: Dizziness Time Seen by Provider: 02/29/24 10:15 Source: patient, RN notes reviewed, old records reviewed - History of Present Illness Initial comments: This is a 73-year-old male who presents to the emergency department stating that he has double vision starting on Thursday and it continued throughout the weekend and today. Patient states when he closes 1 eye the double vision goes away. Patient denies any headache patient denies any numbness or weakness. Patient Nu[place] any other neurologic deficit. Patient has any recent fever chills or cough or patient has any trauma. - Related Data Home Medications Medication Instructions Recorded Confirmed Furosemide [Lasix] 20 mg PO DAILY 07/12/21 02/29/24 Latanoprost/Pf [Latanoprost 0.005% 1 drop BOTH EYES HS 07/12/21 02/29/24 Eye Drop] Naproxen Sodium [Aleve] 440 mg PO DAILY 07/12/21 02/29/24 Potassium Chloride 10 meq PO DAILY 07/12/21 02/29/24 Vit C/E/Zn/Coppr/Lutein/Zeaxan 1 tab PO BID@0000,1200 07/12/21 02/29/24 [Preservision Areds 2 Chew Tab] Brimonidine Tartrate [Alphagan P 1 drop BOTH EYES BID 09/28/22 02/29/24 0.2% Ophth Soln] Simvastatin [Zocor] 40 mg PO HS 09/28/22 02/29/24 Fluticasone Nasal [place] [Flonase 1 spray EA NOSTRIL DAILY PRN 02/29/24 02/29/24 Nasal [place]] Loratadine 10 mg PO DAILY 02/29/24 02/29/24 Omeprazole 20 mg PO DAILY 02/29/24 02/29/24 Allergies Allergy/AdvReac Type Severity Reaction Status Date / Time adhesive AdvReac Rash/Hives Verified 02/29/24 11:06 Review of Systems ROS Statement: Those systems with pertinent positive or pertinent negative responses have been documented in the HPI. ROS Other: All systems not noted in ROS Statement are negative. Past Medical History Past Medical History: Asthma, GERD/Reflux, Hyperlipidemia, Hypertension, Osteoarthritis (OA) Additional Past Medical History / Comment(s): constipation History of Any Multi-Drug Resistant Organisms: None Reported Past Surgical History: Orthopedic Surgery Additional Past Surgical History / Comment(s): testicle, right rot cuff,right knee, right arm nerve surgery,TURP, karen shoulder replacement. Patient fell this past summer and was hospitalized for back fractures. Past Anesthesia/Blood Transfusion Reactions: No Reported Reaction Additional Past Anesthesia/Blood Transfusion Reaction / Comment(s): can be slow to wake up @times Smoking Status: Never smoker - Past Family History Mother Family Medical History: Cancer Additional Family Medical History / Comment(s): stomach Father Family Medical History: COPD General Exam - General Exam Comments Initial Comments: GENERAL: Patient is well-developed and well-nourished. Patient is nontoxic and well- hydrated and is in no acute distress. ENT: Neck is soft and supple. No significant lymphadenopathy is noted. Oropharynx is clear. Moist mucous membranes. Neck has full range of motion without av citing any pain. EYES: The sclera were anicteric and conjunctiva were pink and moist. Extraocular movements were intact and pupils were equal round and reactive to light. Eyelids were unremarkable. PULMONARY: Unlabored respirations. Good breath sounds bilaterally. No audible rales rhonchi or wheezing was noted. CARDIOVASCULAR: There is a regular rate and rhythm without any murmurs gallops or rubs. ABDOMEN: Soft and nontender with normal bowel sounds. SKIN: Skin is clear with no lesions or rashes and otherwise unremarkable. NEUROLOGIC: Patient is alert and oriented x3. Cranial nerves II through XII are grossly intact. Motor and sensory are also intact. Normal speech, volume and content. Symmetrical smile. MUSCULOSKELETAL: Normal extremities with adequate strength and full range of motion. No lower extremity swelling or edema. No calf tenderness. LYMPHATICS: No significant lymphadenopathy is noted PSYCHIATRIC: Normal psychiatric evaluation. Course Vital Signs 02/29/24 11:03 Temperature 98.4 F Pulse Rate 71 Respiratory 22 Rate Blood Pressure 130/73 O2 Sat by Pulse 96 Oximetry Medical Decision Making - Medical Decision Making EKG is interpreted by myself but EKG shows sinus bradycardia 50 bpm WI 174 QRS is 109 QT interval is 432 QTc is 406. Patient's EKG shows no ST segment elevation. Patient does have flipped T waves in 3 and aVF Was pt. sent in by a medical professional or institution (, PA, HARD TILE SETTER, urgent care, hospital, or detention...) When possible be specific @ -No Did you speak to anyone other than the patient for history (EMS, parent, family, police, friend...)? What history was obtained from this source @ -No Did you review nursing and triage notes (agree or disagree)? Why? @ -I reviewed and agree with nursing and triage notes Were old charts reviewed (outside hosp., previous admission, EMS record, old EKG, old radiological studies, urgent care reports/EKG's, detention records)? Report findings @ -No old charts were reviewed Differential Diagnosis? @ -Differential CVA Ischemic stroke, hemorrhagic stroke, brain tumor, atypical migraine, Wernicke's encephalopathy, seizure, multiple sclerosis, meningitis, encephalitis, hypoglycemia, Guillain-Alford, electrolytes disturbance, myasthenia gravis.... This is not meant to be an all-inclusive list EKG interpreted by me (3pts min.). @ -As above X-rays interpreted by me (1pt min.). @ -Chest x-ray shows no acute abnormality CT interpreted by me (1pt min.). @ -CT of the brain shows no acute abnormality. CT angio of the head neck shows no acute abnormality U/S interpreted by me (1pt. min.). @ -None done What testing was considered but not performed or refused? (CT, X-rays, U/S, labs)? Why? @ -None What meds were considered but not given or refused? Why? @ -None Did you discuss the management of the patient with other professionals (professionals i.e. , PA, HARD TILE SETTER, lab, RT, psych nurse, social service coordinator, reconciliation clerk, teacher, health officer, business case analyst)? Give summary @ -I spoke with [facility] physicians he agreed to admit the patient admit the patient wrote admitting orders Was smoking cessation discussed for >3mins.? @ -No Was critical care preformed (if so, how long)? @ -No Were there social determinants of health that impacted care today? How? (Homel essness, low income, unemployed, alcoholism, drug addiction, transportation, low edu. Level, literacy, decrease access to med. care, nursing home, rehab)? @ -No Was there de-escalation of care discussed even if they declined (Discuss DNR or withdrawal of care, Hospice)? DNR status @ -No What co-morbidities impacted this encounter? (DM, HTN, Smoking, COPD, CAD, Cancer, CVA, ARF, Chemo, Hep., AIDS, mental health diagnosis, sleep apnea, morbid obesity)? @ -None Was patient admitted / discharged? Hospital course, mention meds given and route, prescriptions, significant lab abnormalities, going to OR and other pertinent info. @ -Patient's lab work showed no acute abnormality. Patient CT and CT angiogram showed no acute normality. Patient will be admitted to [facility] with a consult to neurology. Patient continues to exhibit double vision Undiagnosed new problem with uncertain prognosis? @ -No Drug Therapy requiring intensive monitoring for toxicity (Heparin, Nitro, Insulin, Cardizem)? @ -No Were any procedures done? @ -No Diagnosis/symptom? @ -CVA Acute, or Chronic, or Acute on Chronic? @ -Acute Uncomplicated (without systemic symptoms) or Complicated (systemic symptoms)? @ -Complicated Side effects of treatment? @ -No Exacerbation, Progression, or Severe Exacerbation? @ -No Poses a threat to life or bodily function? How? (Chest pain, [place], [place], pneumonia, PE, COPD, DKA, ARF, appy, cholecystitis, CVA, Diverticulitis, Homicidal, Suicidal, threat to staff... and all critical care pts) @ -Yes this can lead to a further stroke and - Lab Data Result diagrams: 02/29/24 11:13 02/29/24 11:21 Lab Results 02/29/24 02/29/24 02/29/24 Range/Units 11:13 11:13 11:21 WBC 7.3 (3.8-10.6) k/uL RBC 4.84 (4.30-5.90) m/uL Hgb 14.3 (13.0-17.5) gm/dL Hct 44.4 (39.0-53.0) % MCV 91.8 (80.0-100.0) fL MCH 29.6 (25.0-35.0) pg MCHC 32.3 (31.0-37.0) g/dL RDW 12.9 (11.5-15.5) % Plt Count 183 (150-450) k/uL MPV 8.3 Neutrophils % 55 % Lymphocytes % 32 % Monocytes % 5 % Eosinophils % 5 % Basophils % 1 % Neutrophils # 4.0 (1.3-7.7) k/uL Lymphocytes # 2.4 (1.0-4.8) k/uL Monocytes # 0.4 (0-1.0) k/uL Eosinophils # 0.3 (0-0.7) k/uL Basophils # 0.1 (0-0.2) k/uL PT 10.7 (10.0-12.5) sec INR 1.0 (<1.2) APTT 21.2 L (22.0-30.0) sec Sodium 138 (137-145) mmol/L Potassium 4.5 (3.5-5.1) mmol/L Chloride 100 (98-107) mmol/L Carbon Dioxide 31 H (22-30) mmol/L Anion Gap 7 mmol/L BUN 19 (9-20) mg/dL Creatinine 0.73 (0.66-1.25) mg/dL Est GFR (CKD-EPI)AfAm >90 (>60 ml/min/1.73 sqM) Est GFR (CKD-EPI)NonAf >90 (>60 ml/min/1.73 sqM) Glucose 93 (74-99) mg/dL Calcium 9.5 (8.4-10.2) mg/dL Total Bilirubin 0.4 (0.2-1.3) mg/dL AST 27 (17-59) U/L ALT 25 (4-49) U/L Alkaline Phosphatase 65 (38-126) U/L Creatine Kinase 90 (55-170) U/L Troponin I (0.000-0.034) ng/mL Total Protein 6.6 (6.3-8.2) g/dL Albumin 4.2 (3.5-5.0) g/dL 02/29/24 Range/Units 11:21 WBC (3.8-10.6) k/uL RBC (4.30-5.90) m/uL Hgb (13.0-17.5) gm/dL Hct (39.0-53.0) % MCV (80.0-100.0) fL MCH (25.0-35.0) pg MCHC (31.0-37.0) g/dL RDW (11.5-15.5) % Plt Count (150-450) k/uL MPV Neutrophils % % Lymphocytes % % Monocytes % % Eosinophils % % Basophils % % Neutrophils # (1.3-7.7) k/uL Lymphocytes # (1.0-4.8) k/uL Monocytes # (0-1.0) k/uL Eosinophils # (0-0.7) k/uL Basophils # (0-0.2) k/uL PT (10.0-12.5) sec INR (<1.2) APTT (22.0-30.0) sec Sodium (137-145) mmol/L Potassium (3.5-5.1) mmol/L Chloride (98-107) mmol/L Carbon Dioxide (22-30) mmol/L Anion Gap mmol/L BUN (9-20) mg/dL Creatinine (0.66-1.25) mg/dL Est GFR (CKD-EPI)AfAm (>60 ml/min/1.73 sqM) Est GFR (CKD-EPI)NonAf (>60 ml/min/1.73 sqM) Glucose (74-99) mg/dL Calcium (8.4-10.2) mg/dL Total Bilirubin (0.2-1.3) mg/dL AST (17-59) U/L ALT (4-49) U/L Alkaline Phosphatase (38-126) U/L Creatine Kinase (55-170) U/L Troponin I <0.012 (0.000-0.034) ng/mL Total Protein (6.3-8.2) g/dL Albumin (3.5-5.0) g/dL Disposition Clinical Impression: CVA (cerebral vascular accident), Diplopia Disposition: ADMITTED IP TO THIS [facility] Referrals: [facility],Clinic [Primary Care Provider] - 1-2 days Time of Disposition: 15:13
[2024-02-29 11:32] LABS: Basophils # (A) 0.1 k/uL (0-0.2); Basophils % (A) 1 %; Eosinophils # (A) 0.3 k/uL (0-0.7); Eosinophils % (A) 5 %; HCT 44.4 % (39.0-53.0); HGB 14.3 gm/dL (13.0-17.5); Lymphocytes # (A) 2.4 k/uL (1.0-4.8); Lymphocytes % (A) 32 %; MCH 29.6 pg (25.0-35.0); MCHC 32.3 g/dL (31.0-37.0); MCV 91.8 fL (80.0-100.0); Mean Platelet Volume 8.3; Monocytes # (A) 0.4 k/uL (0-1.0); Monocytes % (A) 5 %; Neutrophils % (A) 55 %; Platelet Count 183 k/uL (150-450); RBC 4.84 m/uL (4.30-5.90); RDW 12.9 % (11.5-15.5); WBC 7.3 k/uL (3.8-10.6)
[2024-02-29 11:44] LABS: ALT 25 U/L (4-49); AST 27 U/L (17-59); African American GFR (CKD) >90 (>60 ml/min/1.73 sqM); Albumin 4.2 g/dL (3.5-5.0); Alkaline Phosphatase 65 U/L (38-126); Anion Gap 7 mmol/L; Blood Urea Nitrogen 19 mg/dL (9-20); Calcium 9.5 mg/dL (8.4-10.2); Carbon Dioxide 31 mmol/L (22-30); Chloride 100 mmol/L (98-107); Creatine Kinase 90 U/L (55-170); Glucose 93 mg/dL (74-99); Non-African American GFR(CKD) >90 (>60 ml/min/1.73 sqM); Potassium 4.5 mmol/L (3.5-5.1); Sodium 138 mmol/L (137-145); Total Bilirubin 0.4 mg/dL (0.2-1.3); Total Protein 6.6 g/dL (6.3-8.2)
[2024-02-29 11:58] LABS: Partial Thromboplastin Time 21.2 sec (22.0-30.0); Prothrombin Time 10.7 sec (10.0-12.5)
--- NOTE | 2024-02-29 12:33 | XR ---
EXAMINATION TYPE: XR chest 2V DATE OF EXAM: 02/29/2024 CLINICAL HISTORY: Altered mental status TECHNIQUE: Frontal and lateral views of the chest are obtained. COMPARISON: Chest CT February 10, 2024 FINDINGS: There is no suspicious new focal air space opacity, pleural effusion, or pneumothorax seen . Mild linear scarring lateral left lung base redemonstrated. The cardiac silhouette size remains wi thin normal limits. Surgical change of bilateral shoulders is partially imaged. IMPRESSION: Chronic changes without acute pulmonary process. [facility], , 02/29/2024 12:31 PM
--- NOTE | 2024-02-29 12:48 | CT ---
EXAMINATION TYPE: CT brain wo con DATE OF EXAM: 02/29/2024 HISTORY: double vision. Acute facet. CT DLP: 1122 mGycm. Automated Exposure Control for Dose Reduction was Utilized. TECHNIQUE: CT scan of the head is performed without contrast. COMPARISON: None. FINDINGS: There is no acute intracranial hemorrhage or midline shift identified. There is moderate diffuse ventricular and sulcal prominence consistent with diffuse age-related cerebral atrophy. [place]- white matter differentiation is preserved. Bilateral aphakia is present. The visualized sinuses are c lear. IMPRESSION: No acute intracranial hemorrhage or midline shift. If clinical concern for acute stroke persists further investigation with MRI study may be warranted. [facility], , 02/29/2024 12:45 PM
--- NOTE | 2024-02-29 12:58 | CT ---
EXAMINATION TYPE: CT angio head neck DATE OF EXAM: 02/29/2024 COMPARISON: CLINICAL INDICATION: Male, 73 years old with history of Neuro deficit, acute, stroke suspected; PHH, double vision TECHNIQUE: CTA scan of the head and neck is performed with IV Contrast, patient injected with 65ml m L of Isovue 370, axial images are obtained, coronal and sagittal reformatted images are reviewed. 3D reconstructed images are created on an independent workstation and reviewed. CT DLP: 747 mGycm Automated exposure control for dose reduction was used. NASCET criteria was used in interpretation of this exam? FINDINGS: Suboptimal study due to streak artifact from right shoulder surgery Right Carotid System: The common carotid artery and external carotid artery are patent. The carotid bifurcation demonstrate s no evidence of hemodynamically significant stenosis. Mild peripheral calcified plaque is seen. The remaining portions of the internal carotid artery demonstrate normal size without significant narrowi ng. Left Carotid System: The common carotid artery and external carotid artery are patent. The carotid bifurcation demonstrate s no evidence of hemodynamically significant stenosis. Mild peripheral calcified plaque is seen. The remaining portions of the internal carotid artery demonstrate normal size without significant narrowi ng. Vertebral arteries are patent without evidence hemodynamically significant stenosis. Left vertebral a rtery is dominant. There is a three-vessel aortic arch. The origins of the great vessels are patent. No evidence of hemo dynamically significant stenosis. Patent anterior communicating artery. No large vessel occlusion or aneurysm at level of the [place]. Other: Multilevel moderate to severe disc space narrowing C3-C4 through C6-C7 levels.. Multilevel sub tle spondylolisthesis. IMPRESSION: 1. No significant vascular abnormality is seen. [facility], , 02/29/2024 12:55 PM
[2024-02-29] MEDS ORDERED: FLUTICASONE NASAL 50MCG/SPRAY 16GM BTL EA NOSTRIL PRN (15:14)
[2024-02-29 15:48] VITALS: TEMP 97.8
[2024-02-29] MEDS ORDERED: NALOXONE 0.4 MG/ML 1 ML VIAL IV PRN (16:12)
--- NOTE | 2024-02-29 16:20 | P.HPIM ---
History of Present Illness H&P Date: 02/29/24 Chief Complaint: Double vision 73-year-old male with hx of chronic constipation and hyperlipidemia who presents to the emergency department stating that he has double vision starting on Thursday and it continued throughout the weekend and today. Patient states when he closes 1 eye the double vision goes away. Patient denies any headache patient denies any numbness or weakness. No recent illness. No cp or sob. No fever chills or cough. Denies trauma. [facility], has a sharpnel in the eye from the war and he can't have an MRI. Review of Systems Complete review of system performed pertinent positives per HPI otherwise negative. Past Medical History Past Medical History: Asthma, GERD/Reflux, Hyperlipidemia, Hypertension, Osteoarthritis (OA) Additional Past Medical History / Comment(s): constipation History of Any Multi-Drug Resistant Organisms: None Reported Past Surgical History: Orthopedic Surgery Additional Past Surgical History / Comment(s): testicle, right rot cuff,right knee, right arm nerve surgery,TURP, karen shoulder replacement. Patient fell this past summer and was hospitalized for back fractures. Past Anesthesia/Blood Transfusion Reactions: No Reported Reaction Additional Past Anesthesia/Blood Transfusion Reaction / Comment(s): can be slow to wake up @times Smoking Status: Never smoker - Past Family History Mother Family Medical History: Cancer Additional Family Medical History / Comment(s): stomach Father Family Medical History: COPD Medications and Allergies Home Medications Medication Instructions Recorded Confirmed Type Furosemide [Lasix] 20 mg PO DAILY 07/12/21 02/29/24 History Latanoprost/Pf [Latanoprost 0.005% 1 drop BOTH EYES HS 07/12/21 02/29/24 History Eye Drop] Naproxen Sodium [Aleve] 440 mg PO DAILY 07/12/21 02/29/24 History Potassium Chloride 10 meq PO DAILY 07/12/21 02/29/24 History Vit C/E/Zn/Coppr/Lutein/Zeaxan 1 tab PO BID@0000,1200 07/12/21 02/29/24 History [Preservision Areds 2 Chew Tab] Brimonidine Tartrate [Alphagan P 1 drop BOTH EYES BID 09/28/22 02/29/24 History 0.2% Ophth Soln] Simvastatin [Zocor] 40 mg PO HS 09/28/22 02/29/24 History Fluticasone Nasal [place] [Flonase 1 spray EA NOSTRIL DAILY PRN 02/29/24 02/29/24 History Nasal [place]] Loratadine 10 mg PO DAILY 02/29/24 02/29/24 History Omeprazole 20 mg PO DAILY 02/29/24 02/29/24 History Allergies Allergy/AdvReac Type Severity Reaction Status Date / Time adhesive AdvReac Rash/Hives Verified 02/29/24 11:06 Physical Exam Vitals: Vital Signs Temp Pulse Resp BP Pulse Ox 02/29/24 15:47 97.8 F 45 L 20 117/77 96 02/29/24 11:03 98.4 F 71 22 130/73 96 Intake and Output 02/29/24 02/29/24 02/29/24 06:59 14:59 22:59 Other: Weight 94.801 kg GENERAL: Patient is well-developed and well-nourished. Patient is nontoxic and well- hydrated and is in no acute distress. ENT: Neck is soft and supple. No significant lymphadenopathy is noted. Oropharynx is clear. Moist mucous membranes. Neck has full range of motion without eliciting any pain. EYES: The sclera were anicteric and conjunctiva were pink and moist. Extraocular movements were intact and pupils were equal round and reactive to light. Eyelids were unremarkable. PULMONARY: Unlabored respirations. Good breath sounds bilaterally. No audible rales rhonchi or wheezing was noted. CARDIOVASCULAR: There is a regular rate and rhythm without any murmurs gallops or rubs. ABDOMEN: Soft and nontender with normal bowel sounds. SKIN: Skin is clear with no lesions or rashes and otherwise unremarkable. NEUROLOGIC: Patient is alert and oriented x3. Cranial nerves II through XII are grossly intact. Motor and sensory are also intact. Normal speech, volume and content. Symmetrical smile. MUSCULOSKELETAL: Normal extremities with adequate strength and full range of motion. No lower extremity swelling or edema. No calf tenderness. LYMPHATICS: No significant lymphadenopathy is noted PSYCHIATRIC: Normal psychiatric evaluation. Results CBC & Chem 7: 02/29/24 11:13 02/29/24 11:21 Labs: Abnormal Lab Results - Last 24 Hours (Table) 02/29/24 02/29/24 Range/Units 11:13 11:21 APTT 21.2 L (22.0-30.0) sec Carbon Dioxide 31 H (22-30) mmol/L Assessment and Plan Plan: Double vision Unclear etiology could be stroke vs. ophthalmological issue Consult neuro and ophth Tele PT and OT Echo Can't have MRI due to eye sharpnel CTA head and neck and CT head both reviewed and normal. Constipation MOnitor Hyperlipidemia Continue statin Admit to inpatient
[2024-02-29] MEDS: ATORVASTATIN 20 MG TAB PO SCH (21:06)
[2024-02-29] MEDS: BRIMONIDINE TARTRATE 0.2% DROPS 5 ML BTL BOTH EYES SCH (21:06)
[2024-02-29] MEDS: LATANOPROST 0.005% OPHTH DROPS 2.5 ML BTL BOTH EYES SCH (21:06)
[2024-02-29] MEDS: ASPIRIN 81 MG PO STA (23:04)
[2024-03-01 06:39] LABS: C Reactive Protein <0.5 mg/dL (<1.0)
[2024-03-01] MEDS ORDERED: ARTIFICIAL TEARS-HYPROMELLOSE DROPS 15 ML BTL BOTH EYES PRN (08:22)
--- NOTE | 2024-03-01 08:22 | P.CNNES ---
History of Present Illness Consult date: 02/29/24 Requesting physician: Renay Horta Reason for Consult: Double vision History of Present Illness: Patient is a 73-year-old right-handed male, came to the hospital today at 9:56 AM for diplopia. Patient states his symptoms started 3 days ago, when he woke up on Thursday morning with double vision. The diplopia has been persistent, goes away with closing 1 or the other eye. It is mainly involving the distant visi on, as he see double road while driving. The diplopia is present constantly since happened. Patient has history of eyelid tuck surgery bilaterally about a year ago. It was done because "eyelids were coming down too much on the cornea". Patient denies any slurred speech, he is hard of hearing and has tinnitus. He has some dysphagia for solids for the last 10 to 15 years. He states that if he does not chew, it gets stuck up in the throat. No problem with the liquids. He denies drooling while awake. Patient admits to having some intermittent numbness of the fingers but has been going on for years. He has history of right carpal tunnel release and is recommended to have carpal tunnel surgery on the left as well but has not done. Patient admits to having some TBI when he was in [place]. Vital signs on arrival blood pressure 130/73, pulse rate 71 temperature 98.4. Blood test shows normal CBC, PT PTT, normal CMP, troponin normal. CT head revealed no acute intracranial process. On my review, there is evidence of some old records in the bilateral basal ganglia. Also some chronic appearing hypodensity in the left external capsule. EKG shows sinus bradycardia. Chest x-ray showed chronic changes without acute cardiopulmonary process. Patient has history of prediabetes, denies hypertension, denies any tobacco or alcohol use. Patient states that he did fall in end of November 2023, and cracked ribs. He states that he does have shrapnel in the eye, and was told never to have an MRI. Review of Systems All pertinent positive and negative review of systems mentioned in the HPI. Otherwise unremarkable. Past Medical History Past Medical History: Asthma, GERD/Reflux, Hyperlipidemia, Hypertension, Osteoa rthritis (OA) Additional Past Medical History / Comment(s): constipation History of Any Multi-Drug Resistant Organisms: None Reported Past Surgical History: Orthopedic Surgery Additional Past Surgical History / Comment(s): testicle, right rot cuff,right knee, right arm nerve surgery,TURP, karen shoulder replacement. Patient fell this past summer and was hospitalized for back fractures. Past Anesthesia/Blood Transfusion Reactions: No Reported Reaction Additional Past Anesthesia/Blood Transfusion Reaction / Comment(s): can be slow to wake up @times Smoking Status: Never smoker - Past Family History Mother Family Medical History: Cancer Additional Family Medical History / Comment(s): stomach Father Family Medical History: COPD Medications and Allergies Home Medications Medication Instructions Recorded Confirmed Type Furosemide [Lasix] 20 mg PO DAILY 07/12/21 02/29/24 History Latanoprost/Pf [Latanoprost 0.005% 1 drop BOTH EYES HS 07/12/21 02/29/24 History Eye Drop] Naproxen Sodium [Aleve] 440 mg PO DAILY 07/12/21 02/29/24 History Potassium Chloride 10 meq PO DAILY 07/12/21 02/29/24 History Vit C/E/Zn/Coppr/Lutein/Zeaxan 1 tab PO BID@0000,1200 07/12/21 02/29/24 History [Preservision Areds 2 Chew Tab] Brimonidine Tartrate [Alphagan P 1 drop BOTH EYES BID 09/28/22 02/29/24 History 0.2% Ophth Soln] Simvastatin [Zocor] 40 mg PO HS 09/28/22 02/29/24 History Fluticasone Nasal [place] [Flonase 1 spray EA NOSTRIL DAILY PRN 02/29/24 02/29/24 History Nasal [place]] Loratadine 10 mg PO DAILY 02/29/24 02/29/24 History Omeprazole 20 mg PO DAILY 02/29/24 02/29/24 History Allergies Allergy/AdvReac Type Severity Reaction Status Date / Time adhesive AdvReac Rash/Hives Verified 02/29/24 11:06 Physical Examination - Vital Signs Vital Signs: Vital Signs Temp Pulse Resp BP Pulse Ox 03/01/24 06:55 51 L 22 110/67 98 03/01/24 04:18 60 18 111/66 02/29/24 23:05 50 L 18 118/77 02/29/24 15:47 97.8 F 45 L 20 117/77 96 02/29/24 11:03 98.4 F 71 22 130/73 96 Patient is an elderly male, very pleasant, in no acute distress. Patient is alert awake oriented to time place and person. Speech and language functions are normal. Patient can name and repeat very well. No aphasia or dysarthria. Attention, concentration and fund of knowledge is adequate. On cranial nerve examination, pupils are equal, round and reacting to light, visual mcdowell are full on confrontation, with no neglect on double simultaneous stimulation. Extraocular muscles are intact with no nystagmus. No JIAN. Face is symmetric, tongue protrudes to the midline. Palatal elevation and sensation normal, hearing is mild to moderately decreased and shoulder shrug normal, facial sensation normal. On muscle strength testing, there is no pronator drift and the strength is normal in arms and legs distally and proximally. Deep tendon reflexes are symmetric 1 all over and plantars downgoing. Sensory to touch is equal with no neglect on double simultaneous stimulation. Cerebellar function showed no ataxia for [id number] testing. No dysdiadochokinesia. No ataxia for [id number] testing on either side. Tone and bulk of muscles normal. Gait deferred.. On general examination, there is no carotid bruit or murmur, S1-S2 audible. Chest is clear on consultation. Abdomen is soft nontender. No organomegaly, bowel sounds present. Peripheral pulses are present. No peripheral edema. Results - Laboratory Findings CBC and BMP: 02/29/24 11:13 02/29/24 11:21 Abnormal Lab Findings: Abnormal Labs 02/29/24 02/29/24 11:13 11:21 APTT 21.2 L Carbon Dioxide 31 H Assessment and Plan Assessment: * Acute onset of binocular diplopia, resolves with closing one of the other eye. Symptoms started 3 days ago and the diplopia is persistent throughout the day. Neurological examination revealed no obvious extraocular muscles weakn ess. Exact cause of diplopia unclear. Patient denies any other focal neurological symptoms. Patient has history of bilateral ptosis requiring eyelid tuck surgery about a year ago. Rule out ocular myasthenia gravis. Plan: * ESR, CRP, hemoglobin A1c, lipid panel and acetylcholine receptor antibodies. * CTA of head and neck showed no significant vascular abnormality. * 2D echo rule out embolic source * Patient cannot have MRI because of presence of shrapnel in the eye. * Patient given aspirin 324 mg x 1 dose. Will start aspirin 81 mg daily for now. Patient also on Lipitor 20 mg daily (at home on Zocor 40 mg) * Await ophthalmology consultation. * DVT prophylaxis: Patient low risk, patient ambulatory. * Neurology will follow. Thank you for the consult.
[2024-03-01] MEDS: POTASSIUM CHLORIDE ER 10 MEQ TAB.ER.PRT PO SCH (08:33)
[2024-03-01] MEDS: ASPIRIN 81 MG PO SCH (08:33)
[2024-03-01] MEDS: PANTOPRAZOLE 40 MG TABLET PO SCH (08:33)
[2024-03-01] MEDS: LORATADINE 10 MG TAB PO SCH (08:34)
[2024-03-01] MEDS: FUROSEMIDE 20 MG TAB PO SCH (08:34)
[2024-03-01] MEDS: PHENYLEPHRINE 2.5% OPHTH DRP 2ML BOTH EYES SCH (09:30)
[2024-03-01] MEDS: PROPARACAINE 0.5% OPHTH DROPS 15 ML BTL BOTH EYES STA (09:30)
--- NOTE | 2024-03-01 10:34 | P.CON ---
Consult Note - . Consult date: 03/01/24 Assessment/Plan:: This is a 73 y/o make with new onset diplopia becoming worse since Thursday. He does find that if he closes one eye or the other double vision improves. He notes a [id number] double vision but cannot state as to crossed or uncrossed. he has a previous history of injury to the left eye sustained during [place]. He has undergone some surgery for the problem, he states as metal in the eye, and that they did not remove all the foreign body. He was recently seen in the [facility] ophthalmology clinic, to be seen in May again this year, but was noted to have some concerning retinal changes, consistent with macular degeneration. Caesar arently the concern is the degeneration may becoming more problematic. Additionally, in November, he had fallen on his back about 4 foot and sustained fractured ribs, but denies head injury, and no onset of diplopia until now. He is confused as to whether there is monocular or binocular double vision is what he experiencing at this time. Other previous eye problems are glaucoma for which he is trated wtih brimonidine 1 drop in each eye 2 ties daily and latanoprost nightly in each eye. He has undergone cataract surgery about 4 years ago. His ptotic eyelids were corrected this last year. His glasses were updated about 2 years ago as well. [facility]: corrected 20/30, OD; 20/40, OS - he noted diplopia with the left eye during the exam Ext: unremarkable EOM: full, no diplopia, his NPC is only about 4 cm Pupils: no APD Conj: quiet and white, OU Cornea: clear OU AC: D&Q OU Lens: pseudophakic OU, with mild after cataract clouding noted OD. Dilated both eyes at 0955 1% tropicamide & 2.5% neosynephrine Vitreous: clear OD, Asteroid hyalosis, OS ONH: S/F/P C: 0.45 OD, 0.40 OS Mac mild AMD mild OD, moderate OS, early SRNVM?? Vasc: normal Periph: normal and intact 360 A: 1) diplopia, definite monocular OS & possible 2) exudative AMD OS as cause, muscle imbalance is not noted, but may be small and unmeasurable in bedside exam. 3) primary open angle glaucoma, continue with current medications 4) pseudophakia P: Recommend return to ophthalmology office for more complete exam of both retina and muscle balance, on discharge.Temporary get-by may be to use an eye patch to relieve the diplopia symptoms, as needed, for ambulation and especially for any driving. Thank you for the this consultation.
[2024-03-01] MEDS: TROPICAMIDE 1% OPHTH DROPS 2 ML BTL BOTH EYES ONE (10:47)
[2024-03-01 16:17] VITALS: BP 110/70; PULSE 50; RESP 17
--- NOTE | 2024-03-01 16:28 | P.DS ---
Providers Date of admission: 02/29/24 15:14 Attending physician: Corrine Shannon MD Consults: 02/29/24 16:13 Consult Physician Routine Consulting Provider: Toya Sumner Consult Reason/Comments: double vision Do you want consulting provider notified?: Yes 02/29/24 16:23 Consult Physician Routine Consulting Provider: Derek Josue Consult Reason/Comments: double vision Do you want consulting provider notified?: Yes Primary care physician: [facility] Hospital Course: Discharge Diagnosis: diplopia, definite monocular OS and possible exudative AMD OS, muscle imbalance is not noted, pseudophakia, primary open-angle glaucoma Hospital Course: 73-year-old male with pulmonary history of prediabetes GERD, asthma, HLD who presented to the ER with diplopia that started 3 days before admission, has been persistent, goes away with closing why or another eye. Patient has history of eyelid tuck surgery bilaterally a year ago, no other neurological symptoms reported besides having dysphagia for solids for the past [address] head revealed no acute intracranial process. Neurology consulted, ordered ESR, CRP, lipid panel, A1c, still unresectability body. Patient could not have MRI because of presence of shrapnel in the eye, was loaded with aspirin and started on baby aspirin daily, continued on statins. Ophthalmology consulted, was diagnosed with diplopia, definite monocular OS and possible exudative AMD OS, muscle imbalance is not noted, pseudophakia, primary open-angle glaucoma. Patient was recommended to follow-up with entomology to complete exam of both retina and muscle balance, may use an eye patch to relieve the diplopia as needed A1c 5.8, CRP and ESR negative. Patient will be discharged on baby aspirin, follow-up with outpatient neurology. Patient seen and examined at bedside. Vital signs reviewed and stable. General: [nontoxic], [no distress], [appears at stated age] Derm: [warm], [dry] Head: [atraumatic], [normocephalic], [symmetric] Eyes: [EOMI], [no lid lag], [anicteric sclera] Mouth: [no lip lesion], [mucus membranes moist] Cardiovascular: [S1S2 reg], [no murmur] Lungs: [CTA bilateral], [no rhonchi, no rales] , [no accessory muscle use] Abdominal: [soft], [ nontender to palpation], [no guarding], [no appreciable organomegaly] Ext: [no gross muscle atrophy], [no edema], [no contractures] Neuro: [ CN II-XI grossly intact], [bilateral diplopia Psych: [Alert], [oriented], [appropriate affect] A total of 40 minutes of time were spent preparing this complex discharge summary. Patient was discharged on 03/01/2024. Plan - Discharge Summary New Discharge Prescriptions: New Aspirin 81 mg PO DAILY #90 tab Continue Potassium Chloride 10 meq PO DAILY Naproxen Sodium [Aleve] 440 mg PO DAILY Vit C/E/Zn/Coppr/Lutein/Zeaxan [Preservision Areds 2 Chew Tab] 1 tab PO BID@0000,1200 Furosemide [Lasix] 20 mg PO DAILY Brimonidine Tartrate [Alphagan P 0.2% Ophth Soln] 1 drop BOTH EYES BID Simvastatin [Zocor] 40 mg PO HS Latanoprost/Pf [Latanoprost 0.005% Eye Drop] 1 drop BOTH EYES HS Omeprazole 20 mg PO DAILY Loratadine 10 mg PO DAILY Fluticasone Nasal [place] [Flonase Nasal [place]] 1 spray EA NOSTRIL DAILY PRN PRN Reason: Allergy Symptoms Discharge Medication List Furosemide [Lasix] 20 mg PO DAILY 07/12/21 [History] Latanoprost/Pf [Latanoprost 0.005% Eye Drop] 1 drop BOTH EYES HS 07/12/21 [History] Naproxen Sodium [Aleve] 440 mg PO DAILY 07/12/21 [History] Potassium Chloride 10 meq PO DAILY 07/12/21 [History] Vit C/E/Zn/Coppr/Lutein/Zeaxan [Preservision Areds 2 Chew Tab] 1 tab PO BID@0000,1200 07/12/21 [History] Brimonidine Tartrate [Alphagan P 0.2% Ophth Soln] 1 drop BOTH EYES BID 09/28/22 [History] Simvastatin [Zocor] 40 mg PO HS 09/28/22 [History] Fluticasone Nasal [place] [Flonase Nasal [place]] 1 spray EA NOSTRIL DAILY PRN 02/29/24 [History] Loratadine 10 mg PO DAILY 02/29/24 [History] Omeprazole 20 mg PO DAILY 02/29/24 [History] Aspirin 81 mg PO DAILY #90 tab 03/01/24 [Rx] Follow up Appointment(s)/Referral(s): Derek Josue MD [STAFF PHYSICIAN] - 1 Week Toya Sumner MD [STAFF PHYSICIAN] - 1 Week [facility] [Primary Care Provider] - 1-2 days Activity/Diet/Wound Care/Special Instructions: Please, follow up with your PCP, neurology and ophthalmology Discharge Disposition: HOME SELF-CARE
--- NOTE | 2024-03-01 16:58 | CA ---
Transthoracic Echo Report Name: Jake Hernandez Age: 73 Gender: M : 1950 Exam Date: 03/01/2024 14:00 Exam Location: [facility] Ht (in): 67 Wt (lb): 209 Ordering Physician: Renay Horta MD Attending/Referring Phys: [id number], Mychal Draw Press Operator Kelsey Solano RDCS Procedure CPT: Indications: tia, Cerebral infarction due to unspecified occlusion or stenosis of right carotid arteries Cardiac Hx: Technical Quality: Very technically difficult study Contrast 1: Definity Total Dose (mL): 1 Contrast 2: Total Dose (mL): MEASUREMENTS (Male / Female) Normal Values 2D ECHO LVOT Diameter 2.6 cm LV Diastolic Volume MOD BP 90.4 cm??? 67 - 155 / 56 - 104 cm??? LV Systolic Volume MOD BP 30.4 cm??? 22 - 58 / 19 - 49 cm??? LV Ejection Fraction MOD BP 66.4 % >= 55 % LV Cardiac Index MOD BP 1312.6 cm???/min???m??? LV Diastolic Volume MOD 4C 107.2 cm??? LV Systolic Volume MOD 4C 36.8 cm??? LV Ejection Fraction MOD 4C 65.7 % LV Cardiac Index MOD 4C 1540.5 cm???/min???m??? LV Diastolic Length 4C 7.9 cm LV Systolic Length 4C 6.5 cm LV Diastolic Volume MOD 2C 70.6 cm??? LV Systolic Volume MOD 2C 24.2 cm??? LV Ejection Fraction MOD 2C 65.8 % LV Cardiac Index MOD 2C 1014.9 cm???/min???m??? LV Diastolic Length 2C 7.2 cm LV Systolic Length 2C 6.2 cm LA Volume 66.0 cm??? 18 - 58 / 22 - 52 cm??? LA Volume Index 30.7 cm???/m??? 16 - 28 cm???/m??? DOPPLER AV Peak Velocity 116.4 cm/s AV Peak Gradient 5.4 mmHg AV Mean Velocity 77.7 cm/s AV Mean Gradient 2.8 mmHg AV Velocity Time Integral 26.0 cm LVOT Peak Velocity 86.9 cm/s LVOT Peak Gradient 3.0 mmHg LVOT Velocity Time Integral 20.3 cm LVOT Stroke Volume 108.3 cm??? LVOT Stroke Volume Index 52.6 ml/m??? LVOT Cardiac Index 2367.5 cm???/min???m??? AV Area Cont Eq vti 4.2 cm??? AV Area Cont Eq pk 4.0 cm??? MV Area PHT 3.5 cm??? Mitral E Point Velocity 61.3 cm/s Mitral A Point Velocity 50.4 cm/s Mitral E to A Ratio 1.2 MV Deceleration Time 215.5 ms FINDINGS Left Ventricle Left ventricular ejection fraction is estimated at 60 %. Left ventricular cavity size normal. Left ventricular wall thickness normal. No obvious regional wall motion abnormalities. Right Ventricle Right ventricle not well visualized. Unable to estimate the right ventricular systolic pressure. Right Atrium Right atrium not well visualized. Left Atrium Mildly increased left atrial volume. Mildly increased left atrial area. Mitral Valve Structurally normal mitral valve. No mitral stenosis, regurgitation or prolapse. Aortic Valve Aortic valve not well visualized. No aortic valve stenosis or regurgitation. Tricuspid Valve Tricuspid valve not well visualized. No tricuspid stenosis, regurgitation or prolapse. Pulmonic Valve Pulmonic valve not well visualized. Pericardium No pericardial effusion. Aorta Aortic annulus normal. CONCLUSIONS Very technically difficult study. LVEF 55 to 60%. No obvious regional wall motion abnormality. No evidence of LV thrombus on contrast imaging No significant valvular dysfunction Previewed by: Dr Francisco Aldridge (Electronically Signed) Final Date: 01 March 2024 16:57
[2024-03-01 19:49] LABS: Chol/HDL Ratio 3.05 Ratio; LDL Cholesterol,Calculated 81.9 mg/dL (0.0-131.0); VLDL Calculation 17.58 mg/dL (5.00-40.00)
--- NOTE | 2024-03-02 11:40 | P.PN ---
Subjective Progress Note Date: 03/01/24 Patient was seen for a follow-up. Patient is sitting comfortably in the bed, offers no new complaints. Continues to have double vision. Objective - Vital Signs Vital signs: Vital Signs Temp 97.8 F 02/29/24 15:47 Pulse 49 L 03/01/24 13:09 Resp 16 03/01/24 13:09 BP 96/67 03/01/24 13:09 Pulse Ox 98 03/01/24 06:55 FiO2 Intake & Output 02/29/24 03/01/24 03/01/24 18:59 06:59 18:59 Weight 94.801 kg - Exam Unchanged. - Labs CBC & Chem 7: 02/29/24 11:13 02/29/24 11:21 Assessment and Plan Assessment: * Acute onset of binocular diplopia, resolves with closing one of the other eye. Symptoms started 3 days ago and the diplopia is persistent throughout the day. Neurological examination revealed no obvious extraocular muscles weakness. Exact cause of diplopia unclear. Patient denies any other focal neurological symptoms. Patient has history of bilateral ptosis requiring e yelid tuck surgery about a year ago. Rule out ocular myasthenia gravis. Plan: * ESR 3, CRP < 0.5, hemoglobin A1c 5.8, lipid panel with cholesterol 148, LDL 81, HDL 48 and triglycerides 87, all normal. * Acetylcholine receptor antibodies < 0.30, normal. * CTA of head and neck showed no significant vascular abnormality. * 2D echo revealed LVEF 55 to 60%. No obvious regional wall motion abnormalities. Mildly increased left atrial volume. No significant valvular abnormalities. No LV thrombus. * Patient cannot have MRI because of presence of shrapnel in the eye. * Patient given aspirin 324 mg x 1 dose. Will start aspirin 81 mg daily for now. Patient also on Lipitor 20 mg daily (at home on Zocor 40 mg) * Ophthalmology input appreciated. Patient has exudative AMD OS as cause, muscle imbalance is not noted. Primary open-angle glaucoma. Recommending patient follow-up in their office for further testing. * Neurologically clear for discharge. Patient to follow-up with ophthalmology and neurology.
== END 2024-03-01 16:56 | disposition home or self-care (01) ==
LOC: EC 09:56 → INTOOBSV 15:14 → 3SCARD 15:14
PROVIDERS: ADMIT Family Medicine; ATTEND Family Medicine
DX: H53.2 Diplopia (principal); H40.10X0 Unspecified open-angle glaucoma, stage unspecified; E78.5 Hyperlipidemia, unspecified; R73.03 Prediabetes; K21.9 Gastro-esophageal reflux disease without esophagitis; J45.909 Unspecified asthma, uncomplicated; K59.09 Other constipation; R13.10 Dysphagia, unspecified; R20.0 Anesthesia of skin; R00.1 Bradycardia, unspecified; Z18.10 Retained metal fragments, unspecified; Z79.1 Long term (current) use of non-steroidal anti-inflammatories (NSAID); Z79.899 Other long term (current) drug therapy; Z91.048 Other nonmedicinal substance allergy status; Z87.820 Personal history of traumatic brain injury; Z98.42 Cataract extraction status, left eye; Z98.41 Cataract extraction status, right eye; Z96.1 Presence of intraocular lens; Z91.81 History of falling; Z87.81 Personal history of (healed) traumatic fracture; Z98.890 Other specified postprocedural states
CPT/HCPCS: 99285; 36415; 93005; 93306; 86041; 80061; 80053; 85652; 82550; 84484; 85025; 85610; 85730; 86140; 83036; 71046; 70496; 70450; 70498; G0378 ×2; Q9957; Q9967